=== PATIENT | female | born 1955 | race African-American/Black ===

== ENCOUNTER 2020-08-12 03:35 | Inpatient (IN) | payer MEDICARE, SELFPAY ==
[2020-08-12] VITALS (11 sets, daily range): BP systolic 136–146; BP diastolic 63–83; PULSE 84–103; RESP 20–28; TEMP 36.9–38.6; O2SAT 80–95; BMI 47.6
--- NOTE | ~2020-08-12 | XR_ITS ---
EXAMINATION: XR chest ET placement INDICATION: Endotracheal tube placement TECHNIQUE: Portable AP chest at 0653 hours COMPARISON: 08/19/2020 FINDINGS: A moderate size right pneumothorax has developed. The endotracheal tube ends approximately 4.1 cm above the jesus. The nasogastric tube is followed as far as the stomach. Its tip is beyond th e inferior margin of the radiograph. Diffuse interstitial and airspace opacities persist throughout t he lungs. Slight worsening on the right is likely due to superimposed atelectasis due to pneumothorax . The cardiomediastinal silhouette is stable. IMPRESSION: 1. Development of a moderate size right pneumothorax. Chest tube has been inserted at the time of int erpretation. 2. Stable diffuse lung disease, consistent with pneumonia and/or pulmonary edema and/or acute respira tory distress syndrome (ARDS). Reviewed, dictated and finalized at location A. ARCH MANUFACTURING OPERATOR IMPRESSION: 1. Development of a moderate size right pneumothorax. Chest tube has been inser sheridan at the time of interpretation. 2. Stable diffuse lung disease, consistent with pneumonia and/or pulmonary shelby a and/or acute respiratory distress syndrome (ARDS).
--- NOTE | ~2020-08-12 | CT_ITS ---
EXAMINATION: CTA chest PE protocol DATE: 08/12/2020 05:33 INDICATION: Shortness of breath TECHNIQUE: Computed tomography angiography (CTA) of the chest was performed with 100 mL Omnipaque-350 intravenous contrast timed to evaluate the pulmonary arteries. Coronal maximum intensity projection 3D-reconstructions were created by the technologist. The dose-length product (DLP) was 969.93 mGy-cm. Automated exposure control and iterative reconstruction technique were employed. COMPARISON: None. FINDINGS: There is moderate opacification of the pulmonary arteries. No definite pulmonary embolism i s identified. There are widespread groundglass opacities throughout all lobes. No pleural effusion or pneumothorax is identified. There is mild cardiomegaly. Mild mediastinal and bilateral hilar lymphad enopathy is noted. The liver is diffusely low in attenuation when compared with the spleen, consisten t with hepatic steatosis. The gallbladder is surgically absent. There appears to be a dropped cholecy stectomy clip posterior to the right kidney. There is mild thoracic spondylosis. IMPRESSION: 1. Widespread groundglass opacities throughout all lung zones concerning for COVID 19 pneumonia. Othe r processes such as influenza pneumonia and organizing pneumonia can cause a similar imaging pattern. 2. No pulmonary embolism identified. Reviewed, dictated and finalized at location A. AL RESOLUTION SPECIALIST IMPRESSION: 1. Widespread groundglass opacities throughout all lung zones concerning for CO VID 19 pneumonia. Other processes such as influenza pneumonia and organizing pn eumonia can cause a similar imaging pattern. 2. No pulmonary embolism identified.
--- NOTE | ~2020-08-12 | XR_ITS ---
EXAMINATION: XR chest 1V portable INDICATION: Right chest tube insertion TECHNIQUE: Portable AP chest at 0723 hours COMPARISON: 0653 hours FINDINGS: A right-sided chest tube has been inserted. The previously described right pneumothorax isidro ears to have resolved, the lung apex is excluded from examination. Diffuse interstitial and airspace opacities persist without interval change. There is stable cardiomegaly. No pneumothorax is identifie d. The nasogastric tube is in the stomach. The endotracheal tube ends 3.5 cm above the jesus. A righ t upper extremity PICC is followed to the midsuperior vena cava. IMPRESSION: 1. Right chest tube insertion with likely resolved right pneumothorax (right lung apex excluded from the examination). 2. Stable diffuse lung disease, consistent with pneumonia and/or pulmonary edema and/or acute respira tory distress syndrome (ARDS). Reviewed, dictated and finalized at location A. ER IMPRESSION: 1. Right chest tube insertion with likely resolved right pneumothorax (right philomena ng apex excluded from the examination). 2. Stable diffuse lung disease, consistent with pneumonia and/or pulmonary shelby a and/or acute respiratory distress syndrome (ARDS).
--- NOTE | ~2020-08-12 | XR_ITS ---
EXAMINATION: XR chest 1V portable DATE: 08/23/2020 05:37 INDICATION: COVID-19 pneumonia. TECHNIQUE: A single frontal view of the chest was obtained. COMPARISON: Chest single view 08/22/2020 FINDINGS: There are airspace opacities throughout the lungs bilaterally. No pleural effusion or pneum othorax. The heart size is normal. The endotracheal tube tip is 2.0 cm above the jesus. The nasogast aysha tube tip is beyond the inferior margin of the radiograph, but at least to the stomach. A right up per extremity peripherally inserted central venous catheter (PICC) is seen with tip in the superior v gaurav cava. The right-sided chest tube is unchanged. IMPRESSION: 1. Diffuse lung disease with slight worsening at the lung bases, consistent with pneumonia versus acu te respiratory distress syndrome (ARDS). Reviewed, dictated and finalized at location A. ON CLEANER IMPRESSION: 1. Diffuse lung disease with slight worsening at the lung bases, consistent wit h pneumonia versus acute respiratory distress syndrome (ARDS).
--- NOTE | ~2020-08-12 | XR_ITS ---
EXAMINATION: XR chest PICC line DATE: 08/14/2020 11:02 INDICATION: Central line placement. TECHNIQUE: A single frontal view of the chest was obtained. COMPARISON: Chest single view at 5:42 AM FINDINGS: There are airspace opacities throughout the lungs bilaterally. No pleural effusion or pneum othorax. Cardiomegaly is noted. A right upper extremity peripherally inserted central venous catheter (PICC) is seen with tip in the superior vena cava. IMPRESSION: 1. PICC tip in superior vena cava. 2. Stable severe diffuse lung disease, consistent with pneumonia versus pulmonary edema versus acute respiratory distress syndrome (ARDS). 3. Cardiomegaly. Reviewed, dictated and finalized at location A. ANCE AND CONTROL SYSTEM ENGINEER IMPRESSION: 1. PICC tip in superior vena cava. 2. Stable severe diffuse lung disease, consistent with pneumonia versus pulmona ry edema versus acute respiratory distress syndrome (ARDS). 3. Cardiomegaly.
--- NOTE | ~2020-08-12 | XR_ITS ---
EXAMINATION: XR chest 1V portable INDICATION: Assess position of right chest tube TECHNIQUE: Portable AP chest at 2345 hours COMPARISON: 0723 hours FINDINGS: The endotracheal tube ends approximately 2.5 cm above the jesus. The nasogastric tube is f ollowed as far as the stomach. Its tip is beyond the inferior margin of the radiograph. A right upper extremity PICC ends with its tip in the superior vena cava. A right-sided chest tube projects over t he right hemithorax and appears unchanged in position. The patient is rotated to the left. No pneumot horax is identified. There is no pleural effusion. Diffuse interstitial and airspace opacities persis t without interval change. Stable cardiomegaly is noted. IMPRESSION: 1. Right chest tube position unchanged. 2. Stable diffuse lung disease, consistent with pneumonia and/or pulmonary edema and/or acute respira tory distress syndrome (ARDS). Reviewed, dictated and finalized at location A. GENCY MANAGEMENT SPECIALIST IMPRESSION: 1. Right chest tube position unchanged. 2. Stable diffuse lung disease, consistent with pneumonia and/or pulmonary shelby a and/or acute respiratory distress syndrome (ARDS).
--- NOTE | ~2020-08-12 | XR_ITS ---
EXAMINATION: XR chest ET placement, XR abdomen NG/feed tube insert DATE: 08/16/2020 11:18 INDICATION: Endotracheal tube placement. Orogastric tube placement. TECHNIQUE: 1. frontal view of the chest was obtained. 2. Portable AP supine view of the abdomen was obtained. COMPARISON: Chest radiograph dated 08/16/2020 FINDINGS: Chest: Endotracheal tube tip 1.7 cm above the jesus. Right upper extremity peripherally inserted central ve nous catheter (PICC) tip at the cephalad superior vena cava. Lung volumes appear mildly decreased relative to the prior study although this may be due at least in part to more lordotic positioning. Persistent diffuse airspace opacities throughout both lungs relat ively sparing the apices. No pneumothorax or definitive pleural effusion. Cardiomegaly. KUB: Nasogastric tube tip in the stomach with proximal side-port in the body and distal tip near the gastr ic antrum. Cholecystectomy clips in the right upper quadrant. There are some gas scattered throughout nondilated loops of colon and small bowel. IMPRESSION: 1. Endotracheal tube and nasogastric tube in expected positions. 2. Persistent diffuse bilateral lung disease consistent pneumonia, pulmonary edema, ARDS or some comb ination thereof. 3. Cardiomegaly. Reviewed, dictated and finalized at location A. S LEADER IMPRESSION: 1. Endotracheal tube and nasogastric tube in expected positions. 2. Persistent diffuse bilateral lung disease consistent pneumonia, pulmonary ed jessica, ARDS or some combination thereof. 3. Cardiomegaly.
--- NOTE | ~2020-08-12 | XR_ITS ---
EXAMINATION: XR chest 1V portable EXAM DATE: 08/27/2020 06:15 INDICATION: COVID-19 pneumonia, acute respiratory failure. TECHNIQUE: Portable AP frontal chest x-ray was obtained. Comparison is made to prior examination from 08/26/2020. FINDINGS: Endotracheal tube tip is 3 centimeters above the jesus (ideal range is between 2 to 5 cm). There is a nasogastric tube seen with tip collimated off the study, but below the left hemidiaphrag m. There is a right-sided PICC line with tip poorly visualized but pointing in the correct direction. Extensive bilateral acute airspace disease, could be infection and edema. There are no sizable pleur al effusions. There is no pneumothorax suspected. The cardiomediastinal silhouette is prominent b ut magnified on this AP technique. The bones and soft tissues are unremarkable. There is no significant interval change compared to prior exam. IMPRESSION: 1. Line(s) and tube(s) in position. 2. Stable airspace disease and other findings as above. Reviewed, dictated and finalized at location A. ON BREEDER
--- NOTE | ~2020-08-12 | XR_ITS ---
EXAMINATION: XR chest 1V portable DATE: 08/24/2020 01:31 INDICATION: Acute respiratory failure. COVID-19 pneumonia. TECHNIQUE: A single frontal view of the chest was obtained. COMPARISON: Chest single view 08/23/2020 FINDINGS: There are airspace opacities throughout the lungs bilaterally. No pleural effusion or pneum othorax. The heart size is normal. The endotracheal tube tip is 2.7 cm above the jesus. A right uppe r extremity peripherally inserted central venous catheter (PICC) is seen with tip in the superior noah a cava. A right-sided chest tube is unchanged. The nasogastric tube tip is beyond the inferior margin of the radiograph, but at least to the stomach. IMPRESSION: 1. Worsened severe diffuse lung disease, consistent with pneumonia versus acute respiratory distress syndrome (ARDS). Reviewed, dictated and finalized at location A. RANCE UNDERWRITING ASSISTANT
--- NOTE | ~2020-08-12 | XR_ITS ---
EXAMINATION: XR chest 1V portable DATE: 08/25/2020 06:08 INDICATION: COVID-19 pneumonia. Acute respiratory failure. TECHNIQUE: A single frontal view of the chest was obtained. COMPARISON: Chest single view 08/24/2020 FINDINGS: There are airspace opacities throughout the lungs bilaterally. No pleural effusion or pneum othorax. The heart size is normal. The endotracheal tube tip is 2.3 cm above the jesus. The nasogast aysha tube tip is beyond the inferior margin of the radiograph, but at least to the stomach. A right up per extremity peripherally inserted central venous catheter (PICC) is seen with tip in the superior v gaurav cava. A right-sided chest tube is unchanged. IMPRESSION: 1. Stable severe diffuse lung disease, consistent with pneumonia versus acute respiratory distress sy ndrome (ARDS). Reviewed, dictated and finalized at location A. TRANSFUSIONIST IMPRESSION: 1. Stable severe diffuse lung disease, consistent with pneumonia versus acute r espiratory distress syndrome (ARDS).
--- NOTE | ~2020-08-12 | XR_ITS ---
EXAMINATION: XR chest 1V portable DATE: 08/14/2020 06:23 INDICATION: Respiratory failure. COVID-19 pneumonia. TECHNIQUE: A single frontal view of the chest was obtained. COMPARISON: Chest CT 08/12/2020 FINDINGS: There are airspace opacities in all lung zones bilaterally. No pleural effusion or pneumoth orax. Cardiomegaly is noted. IMPRESSION: 1. Diffuse lung disease, consistent with pneumonia versus pulmonary edema versus acute respiratory di stress syndrome (ARDS). Reviewed, dictated and finalized at location A. OGRAPHIC MACHINE OPERATOR IMPRESSION: 1. Diffuse lung disease, consistent with pneumonia versus pulmonary edema versu s acute respiratory distress syndrome (ARDS).
--- NOTE | ~2020-08-12 | XR_ITS ---
EXAMINATION: XR chest 1V portable EXAM DATE: 08/18/2020 06:10 INDICATION: Respiratory failure. TECHNIQUE: Portable AP frontal chest x-ray was obtained. Comparison is made to prior examination from 08/17, 08/16. FINDINGS: Endotracheal tube tip is about 2 centimeters above the jesus (ideal range is between 2 to 5 cm). There is a right-sided PICC line with tip projecting over the SVC. There is a nasogastric tu be seen with tip collimated off the study, but below the left hemidiaphragm. Large amount of bilateral acute airspace disease, could be infection and/or edema. There are no siza ble pleural effusions. There is no pneumothorax suspected. Cardiomediastinal silhouette is normal . The bones and soft tissues are unremarkable. Compared to prior study, airspace disease appears unchanged. IMPRESSION: 1. Tubes, line in position. 2. Extensive bilateral acute airspace disease. Reviewed, dictated and finalized at location A. HES PRESSER
--- NOTE | ~2020-08-12 | XR_ITS ---
EXAMINATION: XR chest 1V portable DATE: 08/26/2020 06:14 INDICATION: COVID-19 pneumonia. Acute respiratory failure. TECHNIQUE: A single frontal view of the chest was obtained. COMPARISON: Chest single view 08/25/2020 FINDINGS: There are airspace opacities throughout the lungs bilaterally. No pleural effusion or pneum othorax. The heart size is normal. The endotracheal tube tip is 2.8 cm above the jesus. The nasogast aysha tube tip is beyond the inferior margin of the radiograph, but at least to the stomach. A right-si ded chest tube is noted. A right upper extremity peripherally inserted central venous catheter (PICC) is seen with tip in the superior vena cava. IMPRESSION: 1. Stable diffuse lung disease, consistent with pneumonia versus acute respiratory distress syndrome (ARDS). Reviewed, dictated and finalized at location A. E ADMINISTRATOR IMPRESSION: 1. Stable diffuse lung disease, consistent with pneumonia versus acute respirat ory distress syndrome (ARDS).
--- NOTE | ~2020-08-12 | XR_ITS ---
EXAMINATION: XR chest 1V portable EXAM DATE: 08/15/2020 06:20 INDICATION: Respiratory failure. TECHNIQUE: Portable AP frontal chest x-ray was obtained. Comparison is made to prior examination from 08/14/2020. FINDINGS: There is a right-sided PICC line with tip projecting over the SVC. Moderate to large amount of bilateral acute airspace disease, could be infection and/or edema. There are no sizable pleural effusions. There is no pneumothorax suspected. Cardiomediastinal silhouet te is normal. The bones and soft tissues are unremarkable. Compared to prior study, airspace disease either stable or with slight interval improvement. IMPRESSION: 1. Stable or slightly improved diffuse acute airspace disease, clinical correlation. Reviewed, dictated and finalized at location A. LER IMPRESSION: 1. Stable or slightly improved diffuse acute airspace disease, clinical correl ation.
--- NOTE | ~2020-08-12 | XR_ITS ---
EXAMINATION: XR chest 1V portable EXAM DATE: 08/19/2020 06:36 INDICATION: ETT placement . Respiratory failure. TECHNIQUE: Portable AP frontal chest x-ray was obtained. Comparison is made to prior examination from 08/18, 08/17 and 08/16. FINDINGS: Endotracheal tube tip is 2-3 centimeters above the jesus (ideal range is between 2 to 5 cm ). There is a right-sided PICC line with tip projecting over the SVC. Feeding tube tip poorly visua lized but below the level of the diaphragm. Large amount of bilateral acute airspace disease, could be infection and/or edema. There are no siza ble pleural effusions. There is no pneumothorax suspected. Cardiomediastinal silhouette is normal . The bones and soft tissues are unremarkable. Compared to prior study, airspace disease appears unchanged. IMPRESSION: 1. Tubes, line in position. 2. Extensive bilateral acute airspace disease. Reviewed, dictated and finalized at location A. R CASTING MACHINE SETUP OPERATOR
--- NOTE | ~2020-08-12 | XR_ITS ---
EXAMINATION: XR chest 1V portable EXAM DATE: 08/17/2020 06:25 INDICATION: Respiratory failure. TECHNIQUE: Portable AP frontal chest x-ray was obtained. Comparison is made to prior examination from 08/15/2020, 08/14/2020. FINDINGS: Endotracheal tube tip is 2 centimeters above the jesus (ideal range is between 2 to 5 cm). There is a right-sided PICC line with tip projecting over the SVC. There is a nasogastric tube s een with tip collimated off the study, but below the left hemidiaphragm. Large amount of bilateral acute airspace disease, could be infection and/or edema. There are no siza ble pleural effusions. There is no pneumothorax suspected. Cardiomediastinal silhouette is normal . The bones and soft tissues are unremarkable. Compared to prior study, airspace disease appears unchanged. IMPRESSION: 1. Tubes, line in position. 2. Extensive bilateral acute airspace disease. Reviewed, dictated and finalized at location A. R TECHNICIAN
--- NOTE | ~2020-08-12 | XR_ITS ---
EXAMINATION: XR chest 1V portable EXAM DATE: 08/25/2020 15:13 INDICATION: Respiratory failure. COVID 19. TECHNIQUE: Portable AP frontal chest x-ray was obtained. Comparison is made to prior examination from earlier same date. FINDINGS: There is a right-sided PICC line in position. Endotracheal tube tip is 3 centimeters above the jesus (ideal range is between 2 to 5 cm). Feeding tube poorly visualized but likely tip below the diaphragm. Severe diffuse acute airspace disease again noted. Possible small pleural effusions. There is no pn eumothorax suspected. The cardiomediastinal silhouette is prominent but magnified on this AP techni que. The bones and soft tissues are unremarkable. There is no significant interval change compared to prior exam. IMPRESSION: 1. Line(s) and tube(s) in position. 2. Extensive acute airspace disease unchanged. Reviewed, dictated and finalized at location A. WARE ENGINEER MOBILE
--- NOTE | ~2020-08-12 | XR_ITS ---
EXAMINATION: XR chest 1V portable DATE: 08/22/2020 05:47 INDICATION: Right pneumothorax. COVID-19 pneumonia. TECHNIQUE: A single frontal view of the chest was obtained. COMPARISON: Chest single view 08/20/2020, chest CT 08/12/2020 FINDINGS: There are interstitial opacities in all lung zones bilaterally. There is a small right pleu ral effusion. No pneumothorax. A right-sided chest tube is unchanged. The heart size is normal. The e ndotracheal tube tip is 3.6 cm above the jesus. The nasogastric tube tip is beyond the inferior ray in of the radiograph, but at least to the stomach. A right upper extremity peripherally inserted cent ral venous catheter (PICC) is seen with tip in the superior vena cava. IMPRESSION: 1. Diffuse lung disease with slight improvement from 08/20/2020, consistent with pneumonia versus acu te respiratory distress syndrome (ARDS). 2. Small right pleural effusion. Reviewed, dictated and finalized at location A. RATORY SUPERVISOR IMPRESSION: 1. Diffuse lung disease with slight improvement from 08/20/2020, consistent wit h pneumonia versus acute respiratory distress syndrome (ARDS). 2. Small right pleural effusion.
--- NOTE | ~2020-08-12 | XR_ITS ---
EXAMINATION: XR chest 1V portable EXAM DATE: 08/16/2020 06:21 INDICATION: Respiratory failure. TECHNIQUE: Portable AP frontal chest x-ray was obtained. Comparison is made to prior examination from 08/15/2020, 08/14/2020. FINDINGS: There is a right-sided PICC line with tip projecting over the SVC. Moderate to large amount of bilateral acute airspace disease, could be infection and/or edema. There are no sizable pleural effusions. There is no pneumothorax suspected. Cardiomediastinal silhouet te is normal. The bones and soft tissues are unremarkable. Compared to prior study, airspace disease appears unchanged. IMPRESSION: 1. Stable diffuse acute airspace disease, clinical correlation. Reviewed, dictated and finalized at location A. RACK OPERATOR
--- NOTE | 2020-08-12 03:49 | ECG_ITS ---
Measurements Intervals [place] Rate: 112 P: 8 DC: 147 QRS: 32 QRSD: 102 T: -12 QT: 329 QTc: 449 Interpretive Statements SINUS TACHYCARDIA POSSIBLE LEFT ATRIAL ENLARGEMENT BORDERLINE ST-T WAVE ABNORMALITY- ANTEROLAT/INF LEADS BASELINE WANDER- I, II, AVR, AVL, AVF, V1-V6 ABNORMAL ECG Electronically Signed On 08-12-2020 8:05:30 HOSPITAL CHIEF FINANCIAL OFFICER by Kory Campa D.O.
--- NOTE | 2020-08-12 04:03 | ED.WEAKNESS ---
HPI - Weakness General Chief complaint: Weakness Stated complaint: covid +, dizzy, weak Time Seen by Provider: 08/12/20 03:56 Source: patient Mode of arrival: ambulatory Limitations: no limitations History of Present Illness HPI Narrative: Patient is a 65-year-old female complaining of fatigue, malaise, weakness, body aches, shortness of breath and fever x1 week. Patient states that it is worse tonight. Patient was discharged from [facility] after being admitted with Covid pneumonia this past week. Patient's oxygen sat upon arrival was 80% on room air. Patient does not use oxygen at home. Related Data Home Medications Medication Instructions Recorded Confirmed albuterol sulfate INHALATION 08/12/20 08/12/20 levofloxacin 08/12/20 metformin mg PO 08/12/20 metformin mg PO 08/12/20 nifedipine PO 08/12/20 Review of Systems Review of Systems: All systems reviewed & are unremarkable except as noted in HPI and below Constitutional: Constitutional: Denies body ache(s), Denies chills, Denies excessive sweating, Denies fever(s), Denies headache(s) and Denies weight loss Eyes: Eyes: Denies blurry vision, Denies change in vision and Denies loss of vision ENT: Denies dizziness, Denies ear discharge, Denies headache(s), Denies lip swelling, Denies epistaxis, Denies nasal congestion, Denies neck pain, Denies throat swelling and Denies tongue swelling Cardiovascular: Cardiovascular: Denies chest pain, Denies chest pain at rest, Denies chest pain with activity, Denies diaphoresis, Denies rapid heart rate, Denies edema, Denies irregular heart rhythm, Denies lightheadedness and Denies palpitations Respiratory: Respiratory: Denies chest congestion and Denies hemoptysis Gastrointestinal: Gastrointestinal: Denies abdominal pain, Denies melena, Denies hematochezia, Denies diarrhea, Denies nausea, Denies vomiting and Denies hematemesis Musculoskeletal: Musculoskeletal: Denies abnormal gait, Denies deformity, Denies joint swelling, Denies limited range of motion, Denies neck pain and Denies numbness Neurologic: Denies Abnormal speech present, Denies abnormal gait, Denies confusion, Denies dizziness, Denies headache(s), Denies focal weakness, Denies loss of vision, Denies numbness, Denies Other visual disturbances and Denies Sensory deficit (Neuro) Psychiatric: Psychiatric: Denies confusion, Denies depression, Denies auditory hallucinations, Denies homicidal ideation and Denies suicidal ideation Endocrine: Endocrine: Denies cold intolerance, Denies excessive sweating, Denies fatigue, Denies heat intolerance and Denies palpitations Hematologic/Lymphatic: Hematologic/Lymphatic: Denies easy bleeding and Denies easy bruising Allergic/Immunologic: Allergic/Immunologic: Denies lip swelling, Denies throat swelling and Denies tongue swelling Course Course Emergency Course: Patient on reexamination denies any chest pain or shortness of breath. Discussed with the hospitalist and accepted the admit. Vital Signs Vital signs: Vital Signs Temperature 38.6 C H 08/12/20 03:39 Pulse Rate 101 H 08/12/20 03:39 Respiratory Rate 20 08/12/20 03:39 Blood Pressure 139/75 08/12/20 03:39 Pulse Oximetry 80 L 08/12/20 03:39 Temperature 38.6 C H 08/12/20 03:39 Pulse Rate 103 H 08/12/20 05:41 Respiratory Rate 24 H 08/12/20 05:41 Blood Pressure 145/79 H 08/12/20 05:41 Pulse Oximetry 93 08/12/20 05:41 MDM - Weakness MDM Narrative Medical decision making narrative: Reviewed her labs and CTA findings. Patient does have bilateral Covid pneumonia. Her O2 sat on room air in the low 80s. Due to this she will be admitted for further evaluation and treatment particularly oxygen therapy. Differential Diagnosis Differential diagnosis: Likely anemia, sepsis, dehydration and other (Pneumonia, viral syndrome, Covid infection) Lab Data Attestation: I reviewed the patient's lab results. Result diagrams: 08/12/20 04:13 08/12/20 0
[2020-08-12 04:38] LABS: Basophils Percent Auto 0.2 % (0.2-1.2); Immature Granulocyte Absolute 0.03 K/mm3 (0.00-0.031); Immature Granulocyte Percent A 0.5 % (0-0.5); Lymphocytes Absolute Auto 1.63 K/mm3 (0.9-3.2); Lymphocytes Percent Auto 28.3 % (18.3-44.2); Mean Corpuscular HGB Conc 33.3 g/dl (32-36); Mean Corpuscular Hemoglobin 29.3 pg (26-34); Mean Corpuscular Volume 87.8 fl (80-100); Mean Platelet Volume 9.1 fl (7.4-10.4); Monocytes Absolute Auto 0.3 K/mm3 (0.1-0.6); Monocytes Percent Auto 4.9 % (2.6-8.5); Neutrophils Absolute Auto 3.8 K/mm3 (1.3-6.7); Neutrophils Percent Auto 66.1 % (45.5-73.1); Platelet Count Result 158 k/mm3 (150-375); Red Blood Count 4.44 M/mm3 (4.2-5.4); Red Cell Distribution Width 12.5 % (11.5-14.5); White Blood Count 5.8 K/mm3 (4.5-10.0)
[2020-08-12 04:48] LABS: Alveolar/Arterial O2 Gradient 141.3 mmHg; Base Excess ABG -0.1 mEq/l (+/-2.0); Carboxyhemoglobin 0.8 % THb (0-2.0); Fractional Inspired Oxygen 34 %; HCO3 ABG 23.8 mEq/l (22.0-26.0); Methemoglobin ABG 0.3 %THb (0-1.5); Oxygen Content ABG 17.3 %vol (16.0-22.0); Oxygen Saturation ABG 91.5 % (95.0-100.0); Oxyhemoglobin 89.8 % THb (90.0-100.0); PCO2 ABG 36.3 mmHg (35.0-45.0); PO2 ABG 58.8 mmHg (80.0-100.0); PO2 FiO2 Ratio Arterial Blood 1.73 %; Reduced Hemoglobin 9.1 %THb (0-5.0); Total Hemoglobin 13.7 g/dL (12.0-18.0); pH ABG 7.434 (7.350-7.450)
[2020-08-12 04:49] LABS: Lactic Acid Reflex 1.6 mmol/L (0.7-2.1)
[2020-08-12 04:49] LABS: Device NASAL CANNULA; Liters per Minute 3.5 LPM; Modified Allen's Test Pass; Site Drawn RIGHT RADIAL
[2020-08-12 04:52] LABS: Alanine Aminotransferase 66 U/L (4-35); Alkaline Phosphatase 78 U/L (38-126); Anion Gap 11 mmol/L (8-16); Aspartate Amino Transferase 79 U/L (14-36); Bilirubin,Total 0.9 mg/dL (0.2-1.3); Blood Urea Nitrogen 15 mg/dL (7-17); Calcium 8.7 mg/dL (8.4-10.2); Carbon Dioxide 28 mmol/L (22-30); Chloride 98 mmol/L (98-107); Estimated CRCL calculation 70 ml/min; Estimated Glomerular Filt Rate > 60; Glucose 168 mg/dL (65-105); Potassium 3.5 mmol/L (3.4-5.0); Sodium 137 mmol/L (137-145)
[2020-08-12 04:55] LABS: Prothrombin Time 13.5 Seconds (11.1-14.7)
[2020-08-12 04:56] LABS: Partial Thromboplastin Time 31.1 SECONDS (22.3-36.8)
[2020-08-12 04:58] LABS: D Dimer 0.51 ug/mL (<0.48)
[2020-08-12] MEDS: ACETAMINOPHEN 325 MG TABLET 650 MG PO ×2 (05:01→20:50)
[2020-08-12 05:04] LABS: NT Pro B Type Natriuretic Pept 14 PG/ML (5-100); Troponin I < 0.012 ng/mL (0.000-0.034)
[2020-08-12] MEDS: DEXAMETHASONE SOD PHOS INJ 4 MG/ML VIAL 10 MG IV PUSH (06:26)
[2020-08-12] MEDS: LACTATED RINGERS 1,000 ML 100 ML IV CONT (06:26)
--- NOTE | 2020-08-12 06:50 | PC.NURSE ---
This patient, Lilli Hernandez, was admitted to [facility] Surg Room 330-01. Patient/family oriented to hospital policies and general routines including ID bracelet, bed and alarms, visiting hours, pain management, procedures, bathroom and other care routines, personal items, smoking policy, room service/diet, and visiting hours. Information on how to activate the Rapid Response Team has been discussed. Patient/Family are encouraged to report perceived risks to care and to ask questions if they do not understand what they are told or what they should do.
[2020-08-12] MEDS: REMDESIVIR 200 MG/NS 250 ML 200 MG/250 ML BAG 250 MG IVPB (11:38)
[2020-08-12] MEDS: NIFEdipine 30 MG TAB.ER.24 PO (11:39)
[2020-08-12 12:01] LABS: Hemoglobin A1C 7.3 % (<5.7)
[2020-08-12 12:22] LABS: Glucose Point of Care 254 (65-105)
[2020-08-12] MEDS: ENOXAPARIN 40 MG/0.4 ML SYRINGE SUB-Q (12:49)
[2020-08-12] MEDS: INSULIN ASPART (*BKC) 100 UNITS/ML SUB-Q (12:49)
--- NOTE | 2020-08-12 15:34 | PM.IMHP ---
H&P: HPI History of Present Illness Date/Time: 08/12/20 15:34 Chief complaint: COVID PNEUMONIA Narrative: Lilli Hernandez is a 65 year old female with history of recently diagnosed HTN and Diabetes who was just discharged from [facility] where she was admitted with COVID 19 PNA. She states that she started having fever , fatigue and mild SOB a week ago then some close family members were diagnosed with COVID, she went to [place] and was hospitalized for a few days, apparently she received treatment with a full course of dexamethasone and prior to discharge she had a 6 minute walk test which came back normal. At home she started feeling tired and SOB again and kept having fever and decided to come to the hospital where she was found to be hypoxic. By the time I saw her she was doing better, she denies chest pain, refers anosmia and dysgeusia , no diarrhea , nausea or vomiting, no abdominal pain. Review of Systems Review of Systems: All systems reviewed & are unremarkable except as noted in HPI and below PMFSH Past Medical History Medical History (Updated 08/12/20 @ 15:42 by Daniel Oliver MD) Diabetes Hypertension Family History Family History Father Cancer Social History Social History Smoking status: Former smoker Tobacco type: cigarettes Alcohol intake: never Substance use: never Gender identity (if verbalized by the patient): Female Spiritual care concerns: No Meds Home Medications and Allergies Home Medications Medication Instructions Recorded Confirmed Type albuterol sulfate 2 puff INHALATION Q4H 08/12/20 08/12/20 History levofloxacin 750 mg PO DAILY 08/12/20 08/12/20 History metformin 500 mg PO DAILY 08/12/20 08/12/20 History nifedipine 30 mg PO DAILY 08/12/20 08/12/20 History Allergies Allergy/AdvReac Type Severity Reaction Status Date / Time sulfamethoxazole Allergy Hives Verified 08/12/20 07:14 [From Bactrim] trimethoprim [From Bactrim] Allergy Hives Verified 08/12/20 07:14 Vital Signs Vital Signs - 24 hr 08/12/20 03:39 08/12/20 05:41 08/12/20 06:28 Temperature 101.5 F H Pulse Rate 101 H 103 H 93 Respiratory Rate 20 24 H 28 H Blood Pressure 139/75 145/79 H 144/83 H Pulse Oximetry 80 L 93 95 08/12/20 06:37 08/12/20 07:00 08/12/20 08:00 Temperature 100.3 F H 99.4 F 99.2 F Pulse Rate 95 87 Respiratory Rate 20 20 Blood Pressure 144/82 H 136/63 Pulse Oximetry 95 92 08/12/20 11:44 08/12/20 12:00 Temperature 98.7 F Pulse Rate 84 98 Respiratory Rate 22 H Blood Pressure 142/69 H Pulse Oximetry 92 89 L Exam Const: General: cooperative, comfortable, awake and Physically active Nutritional Appearance: obese Eyes: Pupils: Equal, round and reactive pupils present Neck: Neck: supple and no JVD Resp: Effort & Inspection: normal respiratory effort and able to speak in complete sentences Auscultation: rhonchi and diminished lung sounds Other: No use of accessory muscles Cardio: Jugular venous distension: no JVD Rate: regular rate Rhythm: regular rhythm Heart sounds: S1 normal heart sound present and S2 normal heart sound present Peripheral pulses: Peripheral pulses 2+ throughout GI: Inspection: obesity GI Palp: Yes Soft to palpation Percussion: Yes normal to percussion Auscultation: normal bowel sounds Skin: General skin exam: normal color and no rashes or lesions noted Neuro: General: patient oriented x3, moves all extremities and no focal motor deficits Extrem: General: no clubbing, cyanosis or edema H&P: Results Labs Labs: Short CBC 08/12/20 Range/Units 04:13 WBC 5.8 (4.5-10.0) K/mm3 Hgb 13.0 (12.0-15.0) g/dL Hct 39.0 (37.0-47.0) % Plt Count 158 (150-375) k/mm3 BMP 08/12/20 04:13 Sodium 137 Potassium 3.5 Chloride 98 Carbon Dioxide 28 BUN 15 Creatinine 0.90 Glu
[2020-08-12 17:43] LABS: Glucose Point of Care 152 (65-105)
[2020-08-12] MEDS: ALBUTEROL SULFATE (*SP) INHALER 2 PUFF INHALATION (20:03)
[2020-08-12 21:09] LABS: Glucose Point of Care 151 (65-105)
[2020-08-13] VITALS (20 sets, daily range): BP systolic 130–166; BP diastolic 62–91; PULSE 71–111; RESP 18–32; TEMP 36.6–38.2; O2SAT 86–100
[2020-08-13] MEDS: ALBUTEROL SULFATE (*SP) INHALER 2 PUFF INHALATION ×4 (00:10→20:50)
--- NOTE | 2020-08-13 05:15 | PC.NURSE ---
This patient, Lilli Hernandez, was transferred to [ ICU] on 08/13/20 at 0500. Personal belongings sent with patient. Report given to [ ]. Appropriate documentation sent with patient.
--- NOTE | 2020-08-13 05:54 | PC.NURSE ---
05:20 Lilli Hernandez arrived to ICU6 with avelina RN & tech at bedside at approximately 0515. Pt is AOx4, no c/o pain & O2 saturations on 15L HFNC in the 90s. Pt informed of ICU policies and given call light. Pt is currently resting comfortably, will continue to monitor. 0545 Pt O2 saturations dropped into the 80s sustained, RT contacted, pt placed on NRB for time being, will continue to reassess to wean pt off as tolerated.
[2020-08-13 08:00] LABS: Alanine Aminotransferase 54 U/L (4-35); Albumin Level 3.5 g/dL (3.5-5.1); Alkaline Phosphatase 74 U/L (38-126); Anion Gap 9 mmol/L (8-16); Aspartate Amino Transferase 65 U/L (14-36); Bilirubin,Total 0.8 mg/dL (0.2-1.3); Blood Urea Nitrogen 16 mg/dL (7-17); Calcium 8.6 mg/dL (8.4-10.2); Carbon Dioxide 30 mmol/L (22-30); Chloride 98 mmol/L (98-107); Estimated CRCL calculation 79 ml/min; Estimated Glomerular Filt Rate > 60; Glucose 159 mg/dL (65-105); Potassium 3.4 mmol/L (3.4-5.0); Sodium 137 mmol/L (137-145)
[2020-08-13 08:10] LABS: Basophils Percent Auto 0.1 % (0.2-1.2); Eosinophils Percent Auto 0.1 % (0-4.4); Hematocrit 37.4 % (37.0-47.0); Hemoglobin 12.5 g/dL (12.0-15.0); Immature Granulocyte Absolute 0.06 K/mm3 (0.00-0.031); Immature Granulocyte Percent A 0.9 % (0-0.5); Lymphocytes Absolute Auto 2.23 K/mm3 (0.9-3.2); Lymphocytes Percent Auto 31.9 % (18.3-44.2); Mean Corpuscular HGB Conc 33.4 g/dl (32-36); Mean Corpuscular Hemoglobin 29.3 pg (26-34); Mean Corpuscular Volume 87.8 fl (80-100); Mean Platelet Volume 9.6 fl (7.4-10.4); Monocytes Absolute Auto 0.3 K/mm3 (0.1-0.6); Monocytes Percent Auto 4.9 % (2.6-8.5); Neutrophils Absolute Auto 4.3 K/mm3 (1.3-6.7); Neutrophils Percent Auto 62.1 % (45.5-73.1); Platelet Count Result 180 k/mm3 (150-375); Red Blood Count 4.26 M/mm3 (4.2-5.4); Red Cell Distribution Width 12.5 % (11.5-14.5)
[2020-08-13] MEDS: NIFEdipine 30 MG TAB.ER.24 PO (08:49)
[2020-08-13] MEDS: ENOXAPARIN 40 MG/0.4 ML SYRINGE SUB-Q (08:49)
[2020-08-13 09:12] LABS: Atypical Lymphocytes Present; Platelet Estimate Adequate (Adequate)
--- NOTE | 2020-08-13 11:06 | WPDCNINT ---
Assessment and Plan Assessment and plan (1) Acute respiratory failure with hypoxia: Code(s): J96.01 - Acute respiratory failure with hypoxia Status: Acute Assessment and Plan: Acute Respiratory failure secondary to COVID-19 pneumonia CTA Chest IMPRESSION: 1. Widespread groundglass opacities throughout all lung zones concerning for COVID 19 pneumonia. Other processes such as influenza pneumonia and organizing pneumonia can cause a similar imaging pattern. 2. No pulmonary embolism identified currently on 15 L nasal cannula and non-rebreather mask. Continue supplemental oxygen to maintain saturation and prevent hypoxia. May need airvo if hypoxia worsens or even intubation. Continue ICU monitor ABG and PCXR reviewed and will repeat in am. continue Remdesivir, dexamethasone Discussed benefits and risks of convalscent plasma therapy for COVID-19. I explained patient the risks of donor plasma which includes allergic reaction, transfusion reaction, possible transmission of infections like Hepatitis and HIV and even . Explained that donor plasma has shown benefit in some studies but is not a proven therapy. Patient understands the risks, is agreeable to proceed and gave his informed consent. I will order for 1 unit of convalescent plasma Bronchodilators incentive spirometer and up in chair to minimize atelectasis (2) Pneumonia due to 2019 novel coronavirus: Code(s): U07.1 - COVID-19; J12.89 - Other viral pneumonia Status: Acute Assessment and Plan: see above (3) Hypertension: Code(s): I10 - Essential (primary) hypertension Status: Acute Assessment and Plan: currently on nifedipine (4) Diabetes: Code(s): E11.9 - Type 2 diabetes mellitus without complications Status: Acute Assessment and Plan: sliding scale insulin Additional Plan DVT prophylaxis - Lovenox Stress ulcer prophylaxis - Pepcid Code Status - patient requests to be Full Code . She said to contact Jessica hernandez who is her adopted daughter for medical decision making if she is unable to make decisions for herself Total Critical Care Time -40 minutes Due to a high probability of clinically significant, life threatening deterioration, the patient required my highest level of preparedness to intervene emergently and I personally spent this critical care time directly and personally managing the patient. This critical care time included obtaining a history; examining the patient; pulse oximetry; ordering and review of studies; arranging urgent treatment with development of a management plan; evaluation of patient's response to treatment; frequent reassessment; and discussions with other providers. It was exclusive of separately billable procedures and treating other patients and teaching time. Please see Assessment and Plan section and the rest of the note for further information on patient assessment and treatment Varnish Blender Consult Note Consult date: 08/13/20 Time Seen: 09:00 HPI: Lilli Hernandez is a 65 year old female 65 year old female with history of recently diagnosed HTN and Diabetes who was just discharged from [facility] where she was admitted with COVID 19 PNA. She states that she started having fever , fatigue and mild SOB a week ago then some close family members were diagnosed with COVID, she went to [place] and was tested positive for COVID-19 on 08/06. she she was discharged on08/09 and was not requiring oxygen at that time. she told me that she was not discharged on any steroid medication and she did not receive any blood or plasma transfusion while she was in the [facility]. post discharge she continued to feel sick tired and weak and says overt days her shortness of breath worsened which led her to presentation in [facility] yesterday. patient was found to be having COVID-19 pneumonia and was admitted on floor. overnight patient has hypoxia wors
[2020-08-13 12:37] LABS: Glucose Point of Care 166 (65-105)
[2020-08-13] MEDS: REMDESIVIR 100 MG/NS 250 ML 100 MG/250 ML BAG 250 MG IVPB (13:14)
[2020-08-13] MEDS: DEXAMETHASONE SOD PHOS INJ 4 MG/ML VIAL 6 MG IV PUSH (13:15)
[2020-08-13] MEDS: ACETAMINOPHEN 325 MG TABLET 650 MG PO (13:15)
--- NOTE | 2020-08-13 15:07 | PM.IMPN ---
Progress Note: A&P Assessment and Plan (1) Pneumonia due to 2019 novel coronavirus: Code(s): U07.1 - COVID-19; J12.89 - Other viral pneumonia Status: Acute Assessment and Plan: Moved to ICU for respiratory distress, ct showed diffuse ground glass opacities, no evidence of PE. Completed a full course of dexamethasone at [facility]. Started on bipap IV steroids and iV remdesivir (2) Hypoxia: Code(s): R09.02 - Hypoxemia Status: Acute Assessment and Plan: As above likely due to COVID 19 PNA. (3) Hypertension: Code(s): I10 - Essential (primary) hypertension Status: Acute Assessment and Plan: Diagnosed on her last hospitalization (4) Diabetes: Code(s): E11.9 - Type 2 diabetes mellitus without complications Status: Acute Assessment and Plan: recent diagnosis Hb A1c 7.3%. Subjective Date/time seen: 08/13/20 15:07 Interval history: David is a 65 year old female with history of recently diagnosed HTN and Diabetes who was just discharged from [facility] where she was admitted with COVID 19 PNA. Transfered to ICU due to respiratory distress and fever. Review of Systems Review of Systems: All systems reviewed & are unremarkable except as noted in HPI and below Exam Const: General: cooperative, comfortable, awake and Physically active Nutritional Appearance: obese Orientation/consciousness: patient oriented x3 Resp: Effort & Inspection: normal respiratory effort Neuro: General: patient oriented x3, moves all extremities and no focal motor deficits Cranial nerves: Yes Equal, round and reactive pupils present Objective Data Vital Signs Vital Signs: Vital Signs - 24 hr 08/12/20 16:00 08/12/20 20:00 08/12/20 20:30 Temperature 36.9 C 37.0 C Pulse Rate 88 93 Respiratory Rate 20 20 Blood Pressure 146/67 H 145/64 H Pulse Oximetry 91 92 92 08/13/20 00:00 08/13/20 02:30 08/13/20 03:07 Temperature 37.0 C 37.7 C H Pulse Rate 91 84 111 H Respiratory Rate 18 22 H Blood Pressure 130/62 154/83 H Pulse Oximetry 92 94 86 L 08/13/20 03:38 08/13/20 04:37 08/13/20 05:45 Temperature 38.1 C H Pulse Rate 108 H Respiratory Rate 29 H Blood Pressure 137/85 Pulse Oximetry 89 L 97 90 08/13/20 05:46 08/13/20 08:00 08/13/20 12:00 Temperature 36.6 C 38.2 C H Pulse Rate 93 94 Respiratory Rate 30 H 21 H Blood Pressure 149/81 H 155/79 H Pulse Oximetry 100 93 94 08/13/20 13:15 Temperature 37.9 C H Pulse Rate Respiratory Rate Blood Pressure Pulse Oximetry Intake/Output Intake/Output: Intake & Output 08/10/20 08/11/20 08/12/20 08/13/20 23:59 23:59 23:59 23:59 Intake Total 1989 Output Total 675 Balance 1315 Meds/Results Medications: Active Medications Generic Name Dose Route Start Last Admin Trade Name Freq PRN Reason Stop Dose Admin Acetaminophen 650 mg 08/12/20 20:32 08/13/20 13:15 Acetaminophen 325 Mg Tablet PO 650 mg Q4H PRN Administration Mild Pain (1-3) or Fever Albuterol 2 puff 08/12/20 12:00 08/13/20 12:08 Albuterol Sulfate (*Sp) Inhaler INHALATION 2 puff Q4HRT CAN Administration Dexamethasone Sodium Phosphate 6 mg 08/13/20 12:00 08/13/20 13:15 Dexamethasone Sod Phos Inj 4 Mg/Ml Vial IV PUSH 08/22/20 09:01 6 mg DAILY CAN Administration Dextrose 12.5 gm 08/12/20 10:49 Dextrose 50% 25 Gm/50 Ml Syringe IV PUSH PRN PRN Hypoglycemia Protocol Enoxaparin Sodium 40 mg 08/12/20 13:00 08/13/20 08:49 Enoxaparin 40 Mg/0.4 Ml Syringe SUB-Q 40 mg DAILY CAN Administration Glucagon 1 mg 08/12/20 10:49 Glucagon For Inj 1 Mg Vial IM PRN PRN Hypoglycemia Protocol Glucose 15 gm 08/12/20 10:49 Glucose Oral Gel 15 Gm Of Glucse In 37.5 Gm Tube PO PRN PRN Hypoglycemia Protocol Remdesivir 100 mg in 250 mls @ 250 mls/hr 08/13/20 12:00 08/13/20 13:14 IVPB
[2020-08-13 17:40] LABS: Glucose Point of Care 204 (65-105)
[2020-08-13] MEDS: INSULIN ASPART (*BKC) 100 UNITS/ML SUB-Q (18:00)
--- NOTE | 2020-08-13 18:57 | PCRCNOTE ---
pt unable to come off bipap for 1600 mdi
[2020-08-13 20:26] LABS: Glucose Point of Care 298 (65-105)
[2020-08-14] VITALS (25 sets, daily range): BP systolic 115–169; BP diastolic 57–98; PULSE 73–113; RESP 20–37; TEMP 37.1–38.2; O2SAT 90–99
--- NOTE | 2020-08-14 02:42 | PCRCNOTE ---
Window of time for administration has passed. See next scheduled administration.
[2020-08-14] MEDS: ALBUTEROL SULFATE (*SP) INHALER 2 PUFF INHALATION ×6 (04:04→22:59)
[2020-08-14] MEDS: ENOXAPARIN 40 MG/0.4 ML SYRINGE SUB-Q (08:24)
[2020-08-14] MEDS: NIFEdipine 30 MG TAB.ER.24 PO (08:24)
[2020-08-14] MEDS: DEXAMETHASONE SOD PHOS INJ 4 MG/ML VIAL 6 MG IV PUSH (08:25)
[2020-08-14] MEDS: ACETAMINOPHEN 325 MG TABLET 650 MG PO (08:26)
[2020-08-14 08:36] LABS: Basophils Percent Auto 0.3 % (0.2-1.2); Eosinophils Percent Auto 0.1 % (0-4.4); Hematocrit 38.8 % (37.0-47.0); Hemoglobin 12.8 g/dL (12.0-15.0); Immature Granulocyte Absolute 0.06 K/mm3 (0.00-0.031); Immature Granulocyte Percent A 0.8 % (0-0.5); Lymphocytes Absolute Auto 1.51 K/mm3 (0.9-3.2); Lymphocytes Percent Auto 21.3 % (18.3-44.2); Mean Corpuscular Hemoglobin 29.3 pg (26-34); Mean Corpuscular Volume 88.8 fl (80-100); Mean Platelet Volume 9.3 fl (7.4-10.4); Monocytes Absolute Auto 0.3 K/mm3 (0.1-0.6); Monocytes Percent Auto 4.8 % (2.6-8.5); Neutrophils Absolute Auto 5.2 K/mm3 (1.3-6.7); Neutrophils Percent Auto 72.7 % (45.5-73.1); Platelet Count Result 183 k/mm3 (150-375); Red Blood Count 4.37 M/mm3 (4.2-5.4); Red Cell Distribution Width 12.8 % (11.5-14.5); White Blood Count 7.1 K/mm3 (4.5-10.0)
[2020-08-14 08:48] LABS: Alanine Aminotransferase 46 U/L (4-35); Albumin Level 3.6 g/dL (3.5-5.1); Alkaline Phosphatase 84 U/L (38-126); Anion Gap 6 mmol/L (8-16); Aspartate Amino Transferase 56 U/L (14-36); Blood Urea Nitrogen 13 mg/dL (7-17); Calcium 8.6 mg/dL (8.4-10.2); Carbon Dioxide 33 mmol/L (22-30); Chloride 99 mmol/L (98-107); D Dimer 1.35 ug/mL (<0.48); Estimated CRCL calculation 103 ml/min; Estimated Glomerular Filt Rate > 60; Glucose 148 mg/dL (65-105); Lactate Dehydrogenase 1965 U/L (313-618); Magnesium 2.6 mg/dL (1.6-2.3); Potassium 3.7 mmol/L (3.4-5.0); Sodium 138 mmol/L (137-145)
[2020-08-14] MEDS: REMDESIVIR 100 MG/NS 250 ML 100 MG/250 ML BAG 250 MG IVPB (11:50)
[2020-08-14 11:52] LABS: Glucose Point of Care 179 (65-105)
--- NOTE | 2020-08-14 13:30 | WPDINTPN ---
Progress Note: A&P Assessment and Plan (1) Acute respiratory failure with hypoxia: Code(s): J96.01 - Acute respiratory failure with hypoxia Status: Acute Assessment and Plan: Acute Respiratory failure secondary to COVID-19 pneumonia CTA Chest on presentation IMPRESSION: 1. Widespread groundglass opacities throughout all lung zones concerning for COVID 19 pneumonia. Other processes such as influenza pneumonia and organizing pneumonia can cause a similar imaging pattern. 2. No pulmonary embolism identified patient continues to be hypoxic. she was on high-flow nasal cannula but was desaturating and was placed on BiPAP. Especially due to her body habitus positive-pressure seemsed to help her. Feels much better now and respiratory rate is in 20s. She actually told me that she prefers BiPAP over the high-flow nasal cannula he wants to continue wearing it. She is agreeable to intubation as a last resort which she may need Continue ICU monitor ABG and PCXR reviewed and will repeat in am. continue Remdesivir, dexamethasone 08/13 received 1 unit of convalescent plasma Bronchodilators Incentive spirometer and up in chair to minimize atelectasis when not on BiPAP (2) Pneumonia due to 2019 novel coronavirus: Code(s): U07.1 - COVID-19; J12.89 - Other viral pneumonia Status: Acute Assessment and Plan: see above (3) Hypertension: Code(s): I10 - Essential (primary) hypertension Status: Acute Assessment and Plan: Monitor and treat as needed (4) Diabetes: Code(s): E11.9 - Type 2 diabetes mellitus without complications Status: Acute Assessment and Plan: sliding scale insulin Additional Plan DVT prophylaxis - Lovenox Stress ulcer prophylaxis - Pepcid Code Status - patient requests to be Full Code . She said to contact Jessica chan who is her adopted daughter for medical decision making if she is unable to make decisions for herself Total Critical Care Time -40 minutes Due to a high probability of clinically significant, life threatening deterioration, the patient required my highest level of preparedness to intervene emergently and I personally spent this critical care time directly and personally managing the patient. This critical care time included obtaining a history; examining the patient; pulse oximetry; ordering and review of studies; arranging urgent treatment with development of a management plan; evaluation of patient's response to treatment; frequent reassessment; and discussions with other providers. It was exclusive of separately billable procedures and treating other patients and teaching time. Please see Assessment and Plan section and the rest of the note for further information on patient assessment and treatment Subjective Date/time seen: 08/14/20 She continues to feel short of breath and is very anxious. She was placed on BiPAP which seems to help help in see states he feels better. Denies any other major complaint. Still has some dry cough. Patient denies fever, chest pain, nausea, vomiting, abdominal pain, diarrhea, headache or constipation. Review of Systems Review of Systems: ROS unobtainable: Yes unobtainable due to medical condition Exam Narrative: Exam Narrative: General: Pt is alert awake and in NAD Lungs/Chest: Trachea central Clear BS B/L, bibasilar crackles, no wheezing. On Bipap. Cardiac: RRR. Normal S1 S2. No murmurs Circulation: Pedal pulses are intact and symmetrical. Abdomen: Normal bowel sounds. morbidly obese. Soft. NT. ND. Extremities: No clubbing, cyanosis or edema. Warm : Somers in place Neurologic: Follows commands. Moves all 4 extremities PERRL Skin: No Rash Objective Data Vital Signs Vital Signs: Vital Signs - 24 hr 08/13/20 14:20 08/13/20 16:00 08/13/20 17:24 Temperature 38.2 C H Pulse Rate 78 78 72 Respiratory Rate 22 H 26 H 20 Blood Pressure 166/85 H Pulse Oxim
--- NOTE | 2020-08-14 13:34 | PM.IMPN ---
Progress Note: A&P Assessment and Plan (1) Pneumonia due to 2019 novel coronavirus: Code(s): U07.1 - COVID-19; J12.89 - Other viral pneumonia Status: Acute Assessment and Plan: Ct showed diffuse ground glass opacities, no evidence of PE. Completed a full course of dexamethasone at [facility] however another course was started by classifying machine operator here. Since her symptoms onset is likely less than 10 days she is on Remdesivir, monitor liver enzymes. (2) Hypoxia: Code(s): R09.02 - Hypoxemia Status: Acute Assessment and Plan: As above likely due to COVID 19 PNA. (3) Hypertension: Code(s): I10 - Essential (primary) hypertension Status: Acute Assessment and Plan: Diagnosed on her last hospitalization. (4) Diabetes: Code(s): E11.9 - Type 2 diabetes mellitus without complications Status: Acute Assessment and Plan: Diagnosed on her last hospitalization too, Hb A1c 7.3%. On ISS . Subjective Date/time seen: On bipap, states she feels slightly better. 08/14/20 13:34 Exam Const: General: cooperative, comfortable and awake Nutritional Appearance: obese Orientation/consciousness: patient oriented x3 Eyes: Pupils: Equal, round and reactive pupils present Neck: Neck: supple and no JVD Resp: Effort & Inspection: normal respiratory effort and able to speak in complete sentences Auscultation: rhonchi and diminished lung sounds Other: No use of accessory muscles Cardio: Jugular venous distension: no JVD Rate: regular rate Rhythm: regular rhythm Heart sounds: S1 normal heart sound present and S2 normal heart sound present Peripheral pulses: Peripheral pulses 2+ throughout GI: Inspection: obesity Auscultation: normal bowel sounds Skin: General skin exam: normal color and no rashes or lesions noted Neuro: General: patient oriented x3, moves all extremities and no focal motor deficits Cranial nerves: Yes Equal, round and reactive pupils present Extrem: General: no clubbing, cyanosis or edema Objective Data Vital Signs Vital Signs: Vital Signs - 24 hr 08/13/20 14:20 08/13/20 16:00 08/13/20 17:24 Temperature 100.8 F H Pulse Rate 78 78 72 Respiratory Rate 22 H 26 H 20 Blood Pressure 166/85 H Pulse Oximetry 96 90 93 08/13/20 19:21 08/13/20 19:38 08/13/20 20:00 Temperature 99.2 F 98.7 F 98.7 F Pulse Rate 81 86 81 Respiratory Rate 30 H 28 H 26 H Blood Pressure 154/91 H 154/91 H 145/76 H Pulse Oximetry 99 90 97 08/13/20 20:15 08/13/20 20:51 08/13/20 21:48 Temperature 98.7 F Pulse Rate 83 72 71 Respiratory Rate 25 H 32 H 24 H Blood Pressure 145/76 H 144/78 H Pulse Oximetry 94 93 97 08/14/20 00:00 08/14/20 01:17 08/14/20 03:25 Temperature 98.8 F Pulse Rate 76 77 Respiratory Rate 33 H 28 H Blood Pressure 115/88 131/84 Pulse Oximetry 98 98 94 08/14/20 03:31 08/14/20 04:00 08/14/20 04:04 Temperature 98.7 F Pulse Rate 82 87 86 Respiratory Rate 34 H 34 H Blood Pressure 142/86 H Pulse Oximetry 92 92 08/14/20 05:44 08/14/20 08:00 08/14/20 08:26 Temperature 100.7 F H 100.7 F H Pulse Rate 94 91 Respiratory Rate 35 H 36 H Blood Pressure 145/86 H 156/76 H Pulse Oximetry 90 93 08/14/20 08:49 08/14/20 10:00 08/14/20 12:00 Temperature 99.1 F Pulse Rate 99 85 87 Respiratory Rate 33 H 27 H 28 H Blood Pressure 163/78 H 166/82 H Pulse Oximetry 94 96 98 08/14/20 12:25 08/14/20 12:28 Temperature Pulse Rate 88 88 Respiratory Rate 30 H 30 H Blood Pressure Pulse Oximetry 98 Intake/Output Intake/Output: Intake & Output 08/11/20 08/12/20 08/13/20 08/14/20 23:59 23:59 23:59 23:59 Intake Total 1864 982 240 Output Total 616 841 800 Balance 1352 984 -806 Meds/Results Medications: Active Medications Generic Name Dose Route Start Last Admin Trade Name Freq PRN Reason Stop Dose Admin Acetaminophen 650 mg 08/12/20 20:32 08/14/20 08:26 Acet
[2020-08-14] MEDS: CENTRAL LINE FLUSH 10 ML IV PUSH ×2 (17:16→21:11)
[2020-08-14 17:58] LABS: Glucose Point of Care 149 (65-105)
[2020-08-14 21:21] LABS: Glucose Point of Care 137 (65-105)
[2020-08-15] VITALS (26 sets, daily range): BP systolic 131–165; BP diastolic 71–105; PULSE 90–119; RESP 24–35; TEMP 36.7–38.1; O2SAT 90–99
[2020-08-15] MEDS: CENTRAL LINE FLUSH 10 ML IV PUSH ×3 (06:00→20:35)
[2020-08-15 06:19] LABS: Basophils Percent Auto 0.2 % (0.2-1.2); Eosinophils Percent Auto 0.2 % (0-4.4); Hematocrit 34.7 % (37.0-47.0); Hemoglobin 11.6 g/dL (12.0-15.0); Immature Granulocyte Absolute 0.16 K/mm3 (0.00-0.031); Immature Granulocyte Percent A 1.8 % (0-0.5); Lymphocytes Absolute Auto 1.67 K/mm3 (0.9-3.2); Lymphocytes Percent Auto 18.3 % (18.3-44.2); Mean Corpuscular HGB Conc 33.4 g/dl (32-36); Mean Corpuscular Volume 89.7 fl (80-100); Mean Platelet Volume 9.2 fl (7.4-10.4); Monocytes Absolute Auto 0.3 K/mm3 (0.1-0.6); Monocytes Percent Auto 3.1 % (2.6-8.5); Neutrophils Percent Auto 76.4 % (45.5-73.1); Platelet Count Result 186 k/mm3 (150-375); Red Blood Count 3.87 M/mm3 (4.2-5.4); Red Cell Distribution Width 12.8 % (11.5-14.5); White Blood Count 9.1 K/mm3 (4.5-10.0)
[2020-08-15 06:31] LABS: Alanine Aminotransferase 38 U/L (4-35); Albumin Level 3.3 g/dL (3.5-5.1); Alkaline Phosphatase 87 U/L (38-126); Anion Gap 6 mmol/L (8-16); Aspartate Amino Transferase 46 U/L (14-36); Bilirubin,Total 1.2 mg/dL (0.2-1.3); Blood Urea Nitrogen 13 mg/dL (7-17); Calcium 8.5 mg/dL (8.4-10.2); Carbon Dioxide 32 mmol/L (22-30); Chloride 98 mmol/L (98-107); Estimated CRCL calculation 106 ml/min; Estimated Glomerular Filt Rate > 60; Glucose 150 mg/dL (65-105); Magnesium 2.6 mg/dL (1.6-2.3); Potassium 3.6 mmol/L (3.4-5.0); Sodium 136 mmol/L (137-145)
[2020-08-15] MEDS: ALBUTEROL SULFATE (*SP) INHALER 2 PUFF INHALATION ×4 (07:58→20:49)
[2020-08-15 08:22] LABS: Atypical Lymphocytes Present; Platelet Estimate Adequate (Adequate)
[2020-08-15] MEDS: ENOXAPARIN 40 MG/0.4 ML SYRINGE SUB-Q (09:32)
[2020-08-15] MEDS: DEXAMETHASONE SOD PHOS INJ 4 MG/ML VIAL 6 MG IV PUSH (09:32)
[2020-08-15] MEDS: hydrALAZINE HCL 20 MG/ML VIAL 10 MG IV PUSH (09:36)
[2020-08-15 09:45] LABS: Glucose Point of Care 157 (65-105)
--- NOTE | 2020-08-15 12:23 | PM.IMPN ---
Progress Note: A&P Assessment and Plan (1) Pneumonia due to 2019 novel coronavirus: Code(s): U07.1 - COVID-19; J12.89 - Other viral pneumonia Status: Acute Assessment and Plan: She remains on Bi pap but looks more dyspneic this morning, management per cotton expert. Ct showed diffuse ground glass opacities, no evidence of PE. Completed a full course of dexamethasone at [facility], [place], operated by [facility] however another course was started by cotton expert here. Since her symptoms onset is likely less than 10 days she is on Remdesivir, monitor liver enzymes. (2) Hypoxia: Code(s): R09.02 - Hypoxemia Status: Acute Assessment and Plan: As above likely due to COVID 19 PNA. (3) Hypertension: Code(s): I10 - Essential (primary) hypertension Status: Acute Assessment and Plan: Uncontrolled, resume her nifedipine. (4) Diabetes: Code(s): E11.9 - Type 2 diabetes mellitus without complications Status: Acute Assessment and Plan: Diagnosed on her last hospitalization too, Hb A1c 7.3%. On ISS . Subjective Date/time seen: She seems SOB this morning, on bipap. 08/15/20 12:23 Exam Const: General: cooperative and awake Nutritional Appearance: obese Orientation/consciousness: patient oriented x3 Eyes: Pupils: Equal, round and reactive pupils present Neck: Neck: supple and no JVD Resp: Effort & Inspection: labored (Slightly ) Auscultation: rhonchi and diminished lung sounds Other: SOB, on Bi pap Cardio: Jugular venous distension: no JVD Rate: regular rate Rhythm: regular rhythm Heart sounds: S1 normal heart sound present and S2 normal heart sound present Peripheral pulses: Peripheral pulses 2+ throughout GI: Inspection: obesity Auscultation: normal bowel sounds Skin: General skin exam: normal color and no rashes or lesions noted Neuro: General: patient oriented x3, moves all extremities and no focal motor deficits Cranial nerves: Yes Equal, round and reactive pupils present Extrem: General: no clubbing, cyanosis or edema Objective Data Vital Signs Vital Signs: Vital Signs - 24 hr 08/14/20 12:25 08/14/20 12:28 08/14/20 14:00 Temperature Pulse Rate 88 88 87 Respiratory Rate 30 H 30 H 27 H Blood Pressure 169/84 H Pulse Oximetry 98 98 08/14/20 16:00 08/14/20 16:22 08/14/20 18:00 Temperature 99.3 F Pulse Rate 79 89 76 Respiratory Rate 22 H 23 H 30 H Blood Pressure 166/96 H 159/84 H Pulse Oximetry 97 98 99 08/14/20 20:00 08/14/20 20:02 08/14/20 21:01 Temperature 98.7 F Pulse Rate 80 83 86 Respiratory Rate 29 H 23 H Blood Pressure 167/98 H Pulse Oximetry 95 96 08/14/20 22:00 08/14/20 22:02 08/14/20 23:00 Temperature Pulse Rate 87 90 95 Respiratory Rate 32 H 33 H Blood Pressure 140/57 L Pulse Oximetry 97 96 08/14/20 23:02 08/15/20 00:00 08/15/20 00:02 Temperature 98.6 F 99.8 F H Pulse Rate 97 90 92 Respiratory Rate 26 H 32 H Blood Pressure 147/58 H 153/71 H Pulse Oximetry 94 97 08/15/20 02:00 08/15/20 02:02 08/15/20 03:30 Temperature Pulse Rate 99 99 92 Respiratory Rate 29 H 26 H Blood Pressure 131/76 Pulse Oximetry 95 97 08/15/20 04:00 08/15/20 04:02 08/15/20 06:00 Temperature 100 F H Pulse Rate 98 95 98 Respiratory Rate 30 H Blood Pressure 154/100 H Pulse Oximetry 95 08/15/20 06:02 08/15/20 08:00 08/15/20 09:20 Temperature 100.5 F H Pulse Rate 98 103 H Respiratory Rate 33 H 30 H Blood Pressure 161/96 H 165/91 H Pulse Oximetry 96 97 92 08/15/20 10:00 08/15/20 10:15 08/15/20 11:06 Temperature Pulse Rate 119 H 109 H Respiratory Rate 30 H 35 H Blood Pressure 156/93 H Pulse Oximetry 90 90 96 08/15/20 12:00 Temperature Pulse Rate Respiratory Rate Blood Pressure Pulse Oximetry 96 Intake/Output Intake/Output: Intake & Output 08/12/20 08/13/20 08/14/20 08/15/20 23:59 23:59 23:59 23:59 Intake Total 1989 982
--- NOTE | 2020-08-15 12:24 | PCDIET ---
ICU Rounding Note: Patient consuming 0-50% of meals on diabetic diet. Currently on bipap and was not able to eat gelatin this morning, per nurse. Once status improves, recommend adding Glucerna Shake (220kcal, 10g protein) TID. Also recommend adding medication to promote bowel movement, if medically appropriate. Last recorded weight is 131.9kg which is increased from last review. Bowel Motility: No documented BM as of yet. Labs Reviewed: Hgb (11.6), Hct (34.7), Glu (150), Cr (0.6), Na (136), Alb (3.3) Meds Noted: Albuterol, Decadron, Hydralazine, Remdesivir Additional Notes: No documented skin breakdown. Following daily in ICU rounds. Assessing/reassessing every 5 days.
--- NOTE | 2020-08-15 12:47 | WPDINTPN ---
Progress Note: A&P Assessment and Plan (1) Acute respiratory failure with hypoxia: Code(s): J96.01 - Acute respiratory failure with hypoxia Status: Acute Assessment and Plan: Acute Respiratory failure secondary to COVID-19 pneumonia CTA Chest on presentation IMPRESSION: 1. Widespread groundglass opacities throughout all lung zones concerning for COVID 19 pneumonia. Other processes such as influenza pneumonia and organizing pneumonia can cause a similar imaging pattern. 2. No pulmonary embolism identified patient currently on BiPAP after she was desaturating on high-flow nasal cannula. - Try her again on high-flow nasal cannula this morning on 08/15, she again desaturated was placed back on BiPAP. Continue ICU monitor ABG and PCXR reviewed and will repeat in am. continue Remdesivir, dexamethasone 08/13 received 1 unit of convalescent plasma Bronchodilators Incentive spirometer and up in chair to minimize atelectasis when not on BiPAP (2) Pneumonia due to 2019 novel coronavirus: Code(s): U07.1 - COVID-19; J12.89 - Other viral pneumonia Status: Acute Assessment and Plan: see above (3) Hypertension: Code(s): I10 - Essential (primary) hypertension Status: Acute Assessment and Plan: Hydralazine p.r.n. - patient was also started on nifedipine, home medication (4) Diabetes: Code(s): E11.9 - Type 2 diabetes mellitus without complications Status: Acute Assessment and Plan: sliding scale insulin Additional Plan DVT prophylaxis - Lovenox Stress ulcer prophylaxis - Pepcid discussed with MOHAN Sutton, updated her with patient's condition and plan of care. I answered all questions. I did discuss with her regarding the patient receiving Remdesivir, dexamethasone and also has received a dose of convalescent plasma. Code Status - patient requests to be Full Code . Total Critical Care Time : 37 minutes Due to a high probability of clinically significant, life threatening deterioration, the patient required my highest level of preparedness to intervene emergently and I personally spent this critical care time directly and personally managing the patient. This critical care time included obtaining a history; examining the patient; pulse oximetry; ordering and review of studies; arranging urgent treatment with development of a management plan; evaluation of patient's response to treatment; frequent reassessment; and discussions with other providers. It was exclusive of separately billable procedures and treating other patients and teaching time. Please see Assessment and Plan section and the rest of the note for further information on patient assessment and treatment Subjective Date/time seen: 08/15/20 12:47 Interval history: David is a 65 year old female with history of recently diagnosed HTN and Diabetes who was just discharged from [facility] where she was admitted with COVID 19 PNA - COVID-19 plasma on 08/13/2020 08/15/2020: patient seen and examined the ICU he remains on BiPAP 15/10, 85% FiO2. Patient with decreased urine output, T-max of 100.0?. LFTs trending down. Patient is awake, alert, follows simple commands and answers to questions appropriately. patient has been hypertensive overnight. Patient denies any chest pain, abdominal pain, nausea vomiting. Patient denies any cough at this time. Patient seems to be anxious Review of Systems Review of Systems: All systems reviewed & are unremarkable except as noted in HPI and below (HPI) ROS unobtainable: Yes unobtainable due to medical condition Exam Const: General: comfortable and no acute distress HENMT: Other: BiPAP in place Eyes: Sclera: sclerae normal Pupils: Equal, round and reactive pupils present Neck: Neck: supple Resp: Effort & Inspection: normal respiratory effort Auscultation: rales, no wheezes and diminished lung sounds Cardio: Rate
[2020-08-15] MEDS: INSULIN ASPART (*BKC) 100 UNITS/ML SUB-Q ×2 (12:55→17:34)
[2020-08-15] MEDS: REMDESIVIR 100 MG/NS 250 ML 100 MG/250 ML BAG 250 MG IVPB (12:55)
[2020-08-15] MEDS: NIFEdipine 30 MG TAB.ER.24 60 MG PO (12:56)
[2020-08-15 13:42] LABS: Glucose Point of Care 216 (65-105)
[2020-08-15 17:44] LABS: Glucose Point of Care 246 (65-105)
[2020-08-15] MEDS: ACETAMINOPHEN 325 MG TABLET 650 MG PO (22:49)
[2020-08-15 22:54] LABS: Glucose Point of Care 155 (65-105)
[2020-08-16] VITALS (34 sets, daily range): BP systolic 95–163; BP diastolic 57–85; PULSE 86–134; RESP 23–39; TEMP 37.2–39.7; O2SAT 88–100
[2020-08-16] MEDS: LORazepam INJ (*CRX) 2 MG/ML VIAL 0.5 MG IV PUSH (02:32)
--- NOTE | 2020-08-16 03:18 | PCRCNOTE ---
Window of time for administration has passed. See next scheduled administration.
[2020-08-16] MEDS: ALBUTEROL SULFATE (*SP) INHALER 2 PUFF INHALATION (03:19)
[2020-08-16] MEDS: ACETAMINOPHEN 325 MG TABLET 650 MG PO ×2 (03:52→20:49)
[2020-08-16] MEDS: CENTRAL LINE FLUSH 10 ML IV PUSH ×3 (04:06→20:13)
[2020-08-16] MEDS: CENTRAL LINE FLUSH 20 ML IV PUSH (04:06)
[2020-08-16 04:39] LABS: Alanine Aminotransferase 34 U/L (4-35); Albumin Level 3.4 g/dL (3.5-5.1); Alkaline Phosphatase 106 U/L (38-126); Anion Gap 6 mmol/L (8-16); Aspartate Amino Transferase 46 U/L (14-36); Bilirubin,Total 1.5 mg/dL (0.2-1.3); Blood Urea Nitrogen 15 mg/dL (7-17); Calcium 8.7 mg/dL (8.4-10.2); Carbon Dioxide 32 mmol/L (22-30); Chloride 99 mmol/L (98-107); Estimated CRCL calculation 106 ml/min; Estimated Glomerular Filt Rate > 60; Glucose 176 mg/dL (65-105); Lactate Dehydrogenase 2039 U/L (313-618); Magnesium 2.6 mg/dL (1.6-2.3); Phosphorus 2.9 mg/dL (2.5-4.5); Potassium 3.5 mmol/L (3.4-5.0); Sodium 137 mmol/L (137-145)
[2020-08-16 04:56] LABS: CRP 25.5 mg/dL (<1.0)
[2020-08-16 05:12] LABS: Basophils Percent Auto 0.2 % (0.2-1.2); Eosinophils Percent Auto 0.3 % (0-4.4); Hematocrit 34.3 % (37.0-47.0); Hemoglobin 11.5 g/dL (12.0-15.0); Immature Granulocyte Absolute 0.29 K/mm3 (0.00-0.031); Immature Granulocyte Percent A 2.5 % (0-0.5); Lymphocytes Absolute Auto 1.04 K/mm3 (0.9-3.2); Mean Corpuscular HGB Conc 33.5 g/dl (32-36); Mean Corpuscular Hemoglobin 29.5 pg (26-34); Mean Corpuscular Volume 87.9 fl (80-100); Mean Platelet Volume 9.2 fl (7.4-10.4); Monocytes Absolute Auto 0.3 K/mm3 (0.1-0.6); Monocytes Percent Auto 2.5 % (2.6-8.5); Neutrophils Absolute Auto 9.9 K/mm3 (1.3-6.7); Neutrophils Percent Auto 85.5 % (45.5-73.1); Platelet Count Result 193 k/mm3 (150-375); Red Cell Distribution Width 12.7 % (11.5-14.5); White Blood Count 11.5 K/mm3 (4.5-10.0)
[2020-08-16 05:44] LABS: D Dimer 10.62 ug/mL (<0.48)
[2020-08-16] MEDS: IPRATROPIUM BR 0.02% INH SOLN 0.5 MG/2.5 ML VIAL INHALATION (08:44)
[2020-08-16] MEDS: ALBUTEROL SULFATE NEB 2.5 MG/0.5 ML INH 5 MG INHALATION (08:44)
[2020-08-16] MEDS: ASCORBIC ACID 500 MG TABLET 1000 MG PO (08:50)
[2020-08-16] MEDS: ENOXAPARIN 40 MG/0.4 ML SYRINGE SUB-Q (08:50)
[2020-08-16] MEDS: DEXAMETHASONE SOD PHOS INJ 4 MG/ML VIAL 6 MG IV PUSH (08:51)
[2020-08-16] MEDS: CHOLECALCIFEROL 1,000 UNITS TABLET 1000 UNITS PO (08:51)
[2020-08-16] MEDS: NIFEdipine 30 MG TAB.ER.24 60 MG PO (08:51)
[2020-08-16] MEDS: ZINC SULFATE 220 MG CAPSULE PO (08:51)
[2020-08-16] MEDS: FENTANYL 2,500MCG/NS250ML(*CRX 2,500 MCG/250 ML BAG 10 MCG IV CONT (10:30)
[2020-08-16] MEDS: EPOPROSTENOL SODIUM 0.5 MG VIAL 1 MG INHALATION ×2 (11:25→19:15)
[2020-08-16 12:07] LABS: Alveolar/Arterial O2 Gradient 556.5 mmHg; Base Excess ABG -0.2 mEq/l (+/-2.0); Carboxyhemoglobin 0.1 % THb (0-2.0); Fractional Inspired Oxygen 100 %; Methemoglobin ABG 0.6 %THb (0-1.5); Oxygen Content ABG 18.5 %vol (16.0-22.0); Oxygen Saturation ABG 94.7 % (95.0-100.0); Oxyhemoglobin 93.5 % THb (90.0-100.0); PO2 FiO2 Ratio Arterial Blood 0.87 %; Reduced Hemoglobin 5.8 %THb (0-5.0)
[2020-08-16 12:11] LABS: Device VENTILATOR; Modified Allen's Test Pass; PCO2 ABG 69.5 mmHg (35.0-45.0); Site Drawn LEFT RADIAL; pH ABG 7.239 (7.350-7.450)
[2020-08-16 12:12] LABS: Arterial Blood Gas PEEP 16 cmH2O; Arterial Blood Gas Vent Mode PRESSURE CONTROL; Arterial Blood Gas Ventilator rate 26 /MIN; Peak Inspiratory Pressure 17 cmH2O
[2020-08-16] MEDS: INSULIN ASPART (*BKC) 100 UNITS/ML SUB-Q ×2 (13:02→20:09)
[2020-08-16] MEDS: REMDESIVIR 100 MG/NS 250 ML 100 MG/250 ML BAG 250 MG IVPB (13:03)
[2020-08-16 13:11] LABS: Glucose Point of Care 259 (65-105)
--- NOTE | 2020-08-16 13:55 | WPDINTPN ---
Progress Note: A&P Assessment and Plan (1) Acute respiratory failure with hypoxia: Code(s): J96.01 - Acute respiratory failure with hypoxia Status: Acute Assessment and Plan: Acute Respiratory failure secondary to COVID-19 pneumonia CTA Chest on presentation IMPRESSION: 1. Widespread groundglass opacities throughout all lung zones concerning for COVID 19 pneumonia. Other processes such as influenza pneumonia and organizing pneumonia can cause a similar imaging pattern. 2. No pulmonary embolism identified - on 08/16/2020: Patient remains on BiPAP 15/10, 100% FiO2, patient tachypneic with 35-40 breath some minute. Patient impending respiratory failure and tiring out, after discussed with the patient and her POA Jessica it was decided to intubate the patient. Patient was successfully intubated. Post intubation patient was hypoxic and required bag-mask ventilation with improvement in her oxygen levels. Patient was placed on control ventilation due to her high peak pressures, also started on Flolan. ABG and PCXR reviewed and will repeat in am. - continue Remdesivir, dexamethasone - 08/13 received 1 unit of convalescent plasma - Continue bronchodilators - sedated with fentanyl and Versed infusion, maintain RASS of 0 to -2, daily sedation vacation (2) Pneumonia due to 2019 novel coronavirus: Code(s): U07.1 - COVID-19; J12.89 - Other viral pneumonia Status: Acute Assessment and Plan: see above (3) Hypertension: Code(s): I10 - Essential (primary) hypertension Status: Acute Assessment and Plan: Hydralazine p.r.n. - patient was also started on nifedipine, home medication (4) Diabetes: Code(s): E11.9 - Type 2 diabetes mellitus without complications Status: Acute Assessment and Plan: sliding scale insulin Additional Plan DVT prophylaxis - Lovenox Stress ulcer prophylaxis - Pepcid discussed with MOHAN Sutton, updated her with patient's condition and plan of care. I answered all questions. Code Status - patient requests to be Full Code . Total Critical Care Time : 49 minutes Due to a high probability of clinically significant, life threatening deterioration, the patient required my highest level of preparedness to intervene emergently and I personally spent this critical care time directly and personally managing the patient. This critical care time included obtaining a history; examining the patient; pulse oximetry; ordering and review of studies; arranging urgent treatment with development of a management plan; evaluation of patient's response to treatment; frequent reassessment; and discussions with other providers. It was exclusive of separately billable procedures and treating other patients and teaching time. Please see Assessment and Plan section and the rest of the note for further information on patient assessment and treatment Subjective Date/time seen: 08/16/20 13:55 Interval history: David is a 65 year old female with history of recently diagnosed HTN and Diabetes who was just discharged from [facility] where she was admitted with COVID 19 PNA - COVID-19 plasma on 08/13/2020 08/16/2020: Patient remains on BiPAP this morning, FiO2 was bumped to 100%, on BiPAP 21/07. Urine output has been adequate, T-max of 102.1? F. patient is tachypneic and breathing 35-40 times a minute. Patient stated she is tired, discussed with her regarding intubation, she want me talk to Jessica her POA, discussed with Jessica at length, patient and POA both agreeable for intubation, patient was intubated, initially it was hypoxic post intubation, requiring increased peep in started on Flolan With improvement in oxygenation. Review of Systems Review of Systems: ROS unobtainable: Yes unobtainable due to endotracheal tube and unobtainable due to medical condition Exam Const: General: comfortable and no acute distress HENMT:
--- NOTE | 2020-08-16 14:04 | WPDPROCEDUR ---
Procedures Intubation Intubation Date: 08/16/20 A pre-procedural Time-Out was completed immediately before starting the procedure and confirmed: Patient Identification, Site, Procedure, Patient Position and the Availability of Requisite Equipment: Yes Sedative: etomidate Paralytic: rocuronium Laryngoscope: fiber optic video scope Assist device used: fiber optic device ET tube size: 8 Tube secured depth (cm): 23 Tube secured location: lips Tube placement confirmation: visualized tube passing through cords, equal breath sounds bilaterally, no breath sounds over epigastrium and confirmation by capnometry Patient tolerated procedure: well Intubation complications: none Additional comments: After obtaining consent from the patient and the POA and explaining the rationale for intubation. it was decided to go ahead and intubate the patient. The patient was lying in the supine position. Preoxygenation via BVM was provided for a minimum of 3 minutes. The patient had continuous cardiac as well as pulse oximetry monitoring during the procedure. Rapid sequence induction was provided by administration of Etomidate and rocuronium. A Glidescope blade 4 was used to directly visualize the vocal cords. A 7.5 mm endotracheal tube was visualized advancing between the cords to a level of 23 cm at the lip. The stylette was then removed. Tube placement was also noted by fogging in the tube, equal and bilateral breath sounds, no sounds over the epigastrium, and end-tidal colorimetric monitoring. The cuff was then inflated with 10 ml of air and the tube secured using a commercially available device. A good pulse oximetry wave form was seen on the monitor throughout the procedure. The patient was then connected to the ventilator on pressure control ventilation; rate of 26; FiO2 of 100%; and PEEP of 16. A portable chest x-ray has been ordered for placement. Continued sedation will be provided by Fentanyl and Versed continuous infusion titrated to a RASS of -2. The patient tolerated the procedure well.
--- NOTE | 2020-08-16 14:27 | PCDIET ---
ICU Rounding Note: Pt current nutrition is diabetic + Glucerna Nutrition recommendation: Recommend EN of Vital HP with goal of 70ml/hr due to morbid obesity Last recorded weight is 127.2kg Labs Reviewed: 25.5 C reactive, Ferritin 694, Glucose 176, Mg 2.6 Meds Noted:Albuterol, Vitamin C, Decadron, Remdesvir, Zinc, Vitamin D Additional Notes: Pt intubated today. She had been refusing meals prior to intubation so careful refeeding will be important with enteral nutrition. Wt up from admit wt of 125.9kg. Recommend starting Vital HP at 10ml/hr and advancing q 4 hrs to goal of 40ml/hr day one. If pt tolerates, and electrolytes remain stable, recommend advancing to goal of 70ml/hr day two. At goal of 70ml/hr, Vital HP will provide 1540 kcals, 134g protein, and 1287ml of free water. Following daily in ICU rounds. Assessing/reassessing T/F
[2020-08-16 18:35] LABS: Base Excess ABG 1.2 mEq/l (+/-2.0); HCO3 ABG 27.8 mEq/l (22.0-26.0); Oxygen Saturation ABG 98.5 % (95.0-100.0); PCO2 ABG 52.3 mmHg (35.0-45.0); pH ABG 7.343 (7.350-7.450)
[2020-08-16 18:36] LABS: Alveolar/Arterial O2 Gradient 524.7 mmHg; Carboxyhemoglobin 0.2 % THb (0-2.0); Fractional Inspired Oxygen 100 %; Methemoglobin ABG 0.4 %THb (0-1.5); Modified Allen's Test Pass; Oxyhemoglobin 97.5 % THb (90.0-100.0); PO2 FiO2 Ratio Arterial Blood 1.36 %; Reduced Hemoglobin 1.9 %THb (0-5.0); Site Drawn LEFT RADIAL
[2020-08-16 18:37] LABS: Device VENTILATOR
[2020-08-16 18:39] LABS: Arterial Blood Gas PEEP 16 cmH2O; Arterial Blood Gas Vent Mode PRESSURE CONTROL; Arterial Blood Gas Ventilator rate 26 /MIN; Peak Inspiratory Pressure 17 cmH2O
[2020-08-16 18:40] LABS: Arterial Blood Gas Pressure Support 0 cmH2O
--- NOTE | 2020-08-16 19:00 | PC.NURSE ---
Addendum entered by Niya Galvez RN 08/17/20 03:01: Patient's Fentanyl found to be running at 200 mcg/hr. Versed found to be running at 6 mg/hr. Original Note: Patient's Fentanyl found to be running at 150 mcg/hr. Versed found to be running at 5 mg/hr.
[2020-08-16 20:31] LABS: Glucose Point of Care 221 (65-105)
[2020-08-16] MEDS: FENTANYL 2,500MCG/NS250ML(*CRX 2,500 MCG/250 ML BAG 20 MCG IV CONT (22:46)
[2020-08-16 23:51] LABS: Glucose Point of Care 164 (65-105)
[2020-08-17] VITALS (49 sets, daily range): BP systolic 84–117; BP diastolic 47–86; PULSE 74–102; RESP 22–28; TEMP 36.7–39.1; O2SAT 91–99
[2020-08-17] MEDS: EPOPROSTENOL SODIUM 0.5 MG VIAL 1 MG INHALATION (01:38)
[2020-08-17] MEDS: ACETAMINOPHEN 325 MG TABLET 650 MG PO ×2 (02:24→06:57)
[2020-08-17 03:00] LABS: Alveolar/Arterial O2 Gradient 537.3 mmHg; Base Excess ABG 2.3 mEq/l (+/-2.0); Carboxyhemoglobin 0.3 % THb (0-2.0); Fractional Inspired Oxygen 100 %; HCO3 ABG 28.3 mEq/l (22.0-26.0); Methemoglobin ABG 0.5 %THb (0-1.5); Oxygen Content ABG 19.4 %vol (16.0-22.0); Oxygen Saturation ABG 98.4 % (95.0-100.0); Oxyhemoglobin 96.9 % THb (90.0-100.0); PCO2 ABG 49.7 mmHg (35.0-45.0); PO2 FiO2 Ratio Arterial Blood 1.26 %; Reduced Hemoglobin 2.3 %THb (0-5.0); Total Hemoglobin 14.1 g/dL (12.0-18.0); pH ABG 7.374 (7.350-7.450)
[2020-08-17 03:01] LABS: Device VENTILATOR; Modified Allen's Test Pass; Site Drawn LEFT RADIAL
[2020-08-17 03:03] LABS: Arterial Blood Gas PEEP 16 cmH2O; Arterial Blood Gas Vent Mode PRESSURE CONTROL; Arterial Blood Gas Ventilator rate 26 /MIN
[2020-08-17 03:07] LABS: Peak Inspiratory Pressure 17 cmH2O
[2020-08-17] MEDS: CENTRAL LINE FLUSH 10 ML IV PUSH ×2 (05:09→11:58)
[2020-08-17 05:27] LABS: Hematocrit 35.1 % (37.0-47.0); Hemoglobin 11.2 g/dL (12.0-15.0); Mean Corpuscular HGB Conc 31.9 g/dl (32-36); Mean Corpuscular Hemoglobin 29.6 pg (26-34); Mean Corpuscular Volume 92.9 fl (80-100); Mean Platelet Volume 9.4 fl (7.4-10.4); Platelet Count Result 170 k/mm3 (150-375); Red Blood Count 3.78 M/mm3 (4.2-5.4); Red Cell Distribution Width 13.2 % (11.5-14.5); White Blood Count 10.5 K/mm3 (4.5-10.0)
[2020-08-17 05:46] LABS: Alanine Aminotransferase 25 U/L (4-35); Albumin Level 3.2 g/dL (3.5-5.1); Alkaline Phosphatase 79 U/L (38-126); Anion Gap 6 mmol/L (8-16); Aspartate Amino Transferase 29 U/L (14-36); Bilirubin,Total 0.8 mg/dL (0.2-1.3); Blood Urea Nitrogen 36 mg/dL (7-17); Calcium 8.5 mg/dL (8.4-10.2); Carbon Dioxide 34 mmol/L (22-30); Chloride 100 mmol/L (98-107); Estimated CRCL calculation 44 ml/min; Estimated Glomerular Filt Rate 42; Glucose 164 mg/dL (65-105); Magnesium 2.8 mg/dL (1.6-2.3); Phosphorus 4.7 mg/dL (2.5-4.5); Potassium 3.8 mmol/L (3.4-5.0); Sodium 140 mmol/L (137-145)
[2020-08-17] MEDS: SODIUM CHLORIDE 0.9% IV 500 ML IV CONT ×2 (09:08→15:58)
[2020-08-17] MEDS: ENOXAPARIN 40 MG/0.4 ML SYRINGE SUB-Q (09:10)
[2020-08-17] MEDS: DEXAMETHASONE SOD PHOS INJ 4 MG/ML VIAL 6 MG IV PUSH (09:10)
[2020-08-17 11:14] LABS: Alveolar/Arterial O2 Gradient 532.4 mmHg; Base Excess ABG 1.2 mEq/l (+/-2.0); Carboxyhemoglobin 0.1 % THb (0-2.0); Fractional Inspired Oxygen 90 %; HCO3 ABG 27.1 mEq/l (22.0-26.0); Methemoglobin ABG 0.5 %THb (0-1.5); Oxygen Content ABG 18.2 %vol (16.0-22.0); Oxygen Saturation ABG 90.3 % (95.0-100.0); Oxyhemoglobin 90.1 % THb (90.0-100.0); PCO2 ABG 47.7 mmHg (35.0-45.0); PO2 ABG 60.4 mmHg (80.0-100.0); PO2 FiO2 Ratio Arterial Blood 0.67 %; Reduced Hemoglobin 9.3 %THb (0-5.0); Total Hemoglobin 14.4 g/dL (12.0-18.0); pH ABG 7.372 (7.350-7.450)
[2020-08-17 11:18] LABS: Arterial Blood Gas PEEP 14 cmH2O; Arterial Blood Gas Tidal Volume 380 ml; Arterial Blood Gas Vent Mode CMV; Arterial Blood Gas Ventilator rate 26 /MIN; Device VENTILATOR; Modified Allen's Test Pass; Site Drawn RIGHT RADIAL
[2020-08-17] MEDS: FENTANYL 2,500MCG/NS250ML(*CRX 2,500 MCG/250 ML BAG 20 MCG IV CONT (11:24)
--- NOTE | 2020-08-17 11:38 | PM.IMPN ---
Progress Note: A&P Assessment and Plan (1) Pneumonia due to 2019 novel coronavirus: Code(s): U07.1 - COVID-19; J12.89 - Other viral pneumonia Status: Acute Assessment and Plan: Ct showed diffuse ground glass opacities, no evidence of PE. Completed a full course of dexamethasone at [facility] however another course was started by senior project leader/team lead here. continue Remdesivir and dexamethasone, monitor liver enzymes. intubated pressure support 16, FiO2 100%, flolan started s/p convalescent plasma 08/13/2020 will continue to follow senior project leader/team lead management (2) Hypoxia: Code(s): R09.02 - Hypoxemia Status: Acute Assessment and Plan: As above likely due to COVID 19 PNA. (3) Hypertension: Code(s): I10 - Essential (primary) hypertension Status: Acute Assessment and Plan: prn hydralazine (4) Diabetes: Code(s): E11.9 - Type 2 diabetes mellitus without complications Status: Acute Assessment and Plan: Diagnosed on her last hospitalization too, Hb A1c 7.3%. continue sliding scale insulin (5) UMER (acute kidney injury): Code(s): N17.9 - Acute kidney failure, unspecified Status: Acute Assessment and Plan: worsening urine output and creatinine Subjective Date/time seen: 08/17/20 11:38 patient examined. Following senior project leader/team lead management. Patient sedated on fentanyl and Versed. Intubated 08/16- on pressure support 16, FiO2 100%. patient is on Flolan. Review of Systems Review of Systems: ROS unobtainable: Yes unobtainable due to endotracheal tube Exam Narrative: Exam Narrative: - GENERAL: Ill-appearing woman intubated sedated - HENT: ET tube in place - LUNGS: diminished lung sounds - CARDIOVASCULAR: Regular rate and rhythm. No murmur. No JVD. - ABDOMEN: hypoactive bowel sounds. - EXTREMITIES: No edema. Peripheral pulses 2+. Non-tender. - NEUROLOGIC: unable to evaluate intubated sedated - PSYCHIATRIC: unable to evaluate intubated sedated Objective Data Vital Signs Vital Signs: Vital Signs - 24 hr 08/16/20 12:00 08/16/20 13:12 08/16/20 14:00 Temperature 38.4 C H Pulse Rate 91 99 91 Respiratory Rate 25 H 26 H 25 H Blood Pressure 107/62 Pulse Oximetry 95 94 95 08/16/20 15:18 08/16/20 15:47 08/16/20 16:00 Temperature 37.8 C H Pulse Rate 117 H 89 90 Respiratory Rate 26 H 23 H 25 H Blood Pressure 95/61 L Pulse Oximetry 94 92 91 08/16/20 18:00 08/16/20 18:57 08/16/20 19:15 Temperature Pulse Rate 89 88 89 Respiratory Rate 28 H 24 H Blood Pressure 103/64 Pulse Oximetry 88 L 93 91 08/16/20 19:21 08/16/20 20:00 08/16/20 20:23 Temperature 38.6 C H Pulse Rate 93 93 100 Respiratory Rate 23 H 26 H Blood Pressure 103/57 L Pulse Oximetry 89 L 89 L 08/16/20 20:49 08/16/20 21:35 08/16/20 21:49 Temperature 38.6 C H 37.7 C H Pulse Rate 89 Respiratory Rate Blood Pressure Pulse Oximetry 91 08/16/20 22:00 08/16/20 22:46 08/16/20 23:33 Temperature Pulse Rate 86 87 92 Respiratory Rate 23 H 26 H Blood Pressure 103/57 L Pulse Oximetry 100 97 08/17/20 00:00 08/17/20 01:38 08/17/20 01:39 Temperature 38.1 C H Pulse Rate 92 95 Respiratory Rate 22 H 23 H Blood Pressure 106/61 Pulse Oximetry 99 99 99 08/17/20 02:00 08/17/20 02:23 08/17/20 02:24 Temperature 39.1 C H Pulse Rate 100 98 Respiratory Rate 28 H 27 H Blood Pressure 100/73 Pulse Oximetry 99 08/17/20 03:24 08/17/20 03:30 08/17/20 04:00 Temperature 38.2 C H 38.3 C H Pulse Rate 91 93 Respiratory Rate 26 H Blood Pressure 103/86 Pulse Oximetry 97 96 08/17/20 05:13 08/17/20 05:14 08/17/20 05:40 Temperature Pulse Rate 91 90 93 Respiratory Rate 22 H 26 H Blood Pressure Pulse Oximetry 96 08/17/20 06:00 08/17/20 06:57 08/17/20 08:00 Temperature 38.4 C H 38.3 C H Pulse Rate 102 H 95 Respiratory Rate 28 H 22 H Blood Pressure 105/86 104/61 P
--- NOTE | 2020-08-17 11:51 | PCFNICU ---
ICU Rounding Note: Pt current nutrition is NPO. Nutrition recommendation: tube feedings of Vital HP at 10 ml/hr advance to 40 ml/hr day 1. Last recorded weight is 126.6 kg up from 125.9 kg on admit. Bowel Motility:NO BM reported. Labs Reviewed:Cr 1.5,Alb 3.2 Meds Noted: Vit C, Zinc, Vit D, Versed, Fentanyl. Additional Notes: Patient remains on mechanical ventilator. Tube feedings to start today of Vital HP at 10 ml/hr advance to 40 ml/hr day 1. Day 2 if tolerated advance to 70 ml/hr, which will provide 1540 kcals/134 gms protein/1287 ml water. Following daily in ICU rounds. Assessing/reassessing every Saturday and Saturday.
[2020-08-17] MEDS: ASCORBIC ACID 500 MG TABLET 1000 MG PO (11:58)
[2020-08-17] MEDS: CHOLECALCIFEROL 1,000 UNITS TABLET 1000 UNITS PO (11:58)
[2020-08-17] MEDS: ZINC SULFATE 220 MG CAPSULE PO (11:58)
[2020-08-17 12:40] LABS: Glucose Point of Care 191 (65-105)
--- NOTE | 2020-08-17 13:15 | WPDINTPN ---
Progress Note: A&P Assessment and Plan (1) Acute respiratory failure with hypoxia: Code(s): J96.01 - Acute respiratory failure with hypoxia Status: Acute Assessment and Plan: Acute Respiratory failure secondary to COVID-19 pneumonia CTA Chest on presentation IMPRESSION: 1. Widespread groundglass opacities throughout all lung zones concerning for COVID 19 pneumonia. Other processes such as influenza pneumonia and organizing pneumonia can cause a similar imaging pattern. 2. No pulmonary embolism identified - on 08/16/2020: Patient remains on BiPAP 15/10, 100% FiO2, patient tachypneic with 35-40 breath some minute. Patient impending respiratory failure and tiring out, after discussed with the patient and her POA Jessica it was decided to intubate the patient. Patient was successfully intubated. Post intubation patient was hypoxic and required bag-mask ventilation with improvement in her oxygen levels. Patient was placed on control ventilation due to her high peak pressures, also started on Flolan. - ABGs and chest x-ray reviewed, will wean Flolan to off. - continue Remdesivir, dexamethasone - 08/13 received 1 unit of convalescent plasma - Continue bronchodilators - sedated with fentanyl and Versed infusion, maintain RASS of 0 to -2, daily sedation vacation (2) Pneumonia due to 2019 novel coronavirus: Code(s): U07.1 - COVID-19; J12.89 - Other viral pneumonia Status: Acute Assessment and Plan: see above (3) Hypertension: Code(s): I10 - Essential (primary) hypertension Status: Acute Assessment and Plan: Hydralazine p.r.n. (4) Diabetes: Code(s): E11.9 - Type 2 diabetes mellitus without complications Status: Acute Assessment and Plan: sliding scale insulin Additional Plan DVT prophylaxis - Lovenox Stress ulcer prophylaxis - Pepcid discussed with MOHAN Sutton, updated her with patient's condition and plan of care. I answered all questions. Code Status - patient requests to be Full Code . Total Critical Care Time : 33 minutes Due to a high probability of clinically significant, life threatening deterioration, the patient required my highest level of preparedness to intervene emergently and I personally spent this critical care time directly and personally managing the patient. This critical care time included obtaining a history; examining the patient; pulse oximetry; ordering and review of studies; arranging urgent treatment with development of a management plan; evaluation of patient's response to treatment; frequent reassessment; and discussions with other providers. It was exclusive of separately billable procedures and treating other patients and teaching time. Please see Assessment and Plan section and the rest of the note for further information on patient assessment and treatment Subjective Date/time seen: 08/17/20 13:15 Interval history: David is a 65 year old female with history of recently diagnosed HTN and Diabetes who was just discharged from [facility] [place] where she was admitted with COVID 19 PNA - COVID-19 plasma on 08/13/2020 - intubated on 08/16/2020 08/17/2020: Patient remains intubated on pressure control ventilation, peep of 16, 100% FiO2. Sedated with fentanyl 200 mcg/hour and Versed 6 mg/hour. Patient does not open her eyes follows simple commands. Currently on Flolan. Urine output has been low, creatinine up to 1.5 ( from 0.6 yesterday). Hemodynamically stable, T-max of 102.3?. Review of Systems Review of Systems: ROS unobtainable: Yes unobtainable due to endotracheal tube and unobtainable due to medical condition Exam Const: General: comfortable and no acute distress HENMT: Other: ETT in place Eyes: Sclera: sclerae normal Pupils: Equal, round and reactive pupils present Neck: Neck: supple Resp: Effort & Inspection: normal respiratory effort Auscultation: rales, no
[2020-08-17] MEDS: ALBUTEROL SULFATE NEB 2.5 MG/0.5 ML INH 5 MG INHALATION ×2 (14:50→21:16)
[2020-08-17] MEDS: IPRATROPIUM BR 0.02% INH SOLN 0.5 MG/2.5 ML VIAL INHALATION ×2 (14:50→21:16)
--- NOTE | 2020-08-17 15:58 | PC.NURSE ---
Patient febrile 100.3 after 1000 mg ivpb Acetaminophen. Ice packs placed bilaterally underarms. Will continue to monitor closely.
[2020-08-17] MEDS: NOREPINEPHRINE 8 MG/D5W 250 ML 8 MG/250 ML BAG 9.38 MG IV CONT (17:26)
[2020-08-17] MEDS: INSULIN ASPART (*BKC) 100 UNITS/ML SUB-Q (17:36)
[2020-08-17 18:48] LABS: Glucose Point of Care 226 (65-105)
[2020-08-18] VITALS (36 sets, daily range): BP systolic 97–129; BP diastolic 54–60; PULSE 71–85; RESP 26; TEMP 36.7–37.1; O2SAT 24–96
[2020-08-18 00:31] LABS: Glucose Point of Care 245 (65-105)
[2020-08-18] MEDS: FENTANYL 2,500MCG/NS250ML(*CRX 2,500 MCG/250 ML BAG 20 MCG IV CONT ×2 (00:51→15:11)
[2020-08-18] MEDS: ALBUTEROL SULFATE NEB 2.5 MG/0.5 ML INH 5 MG INHALATION ×5 (03:28→21:15)
[2020-08-18] MEDS: IPRATROPIUM BR 0.02% INH SOLN 0.5 MG/2.5 ML VIAL INHALATION ×5 (03:29→21:15)
[2020-08-18 06:00] LABS: Hematocrit 35.2 % (37.0-47.0); Hemoglobin 11.3 g/dL (12.0-15.0); Mean Corpuscular HGB Conc 32.1 g/dl (32-36); Mean Corpuscular Hemoglobin 29.8 pg (26-34); Mean Corpuscular Volume 92.9 fl (80-100); Mean Platelet Volume 9.7 fl (7.4-10.4); Platelet Count Result 211 k/mm3 (150-375); Red Blood Count 3.79 M/mm3 (4.2-5.4); Red Cell Distribution Width 13.2 % (11.5-14.5); White Blood Count 11.9 K/mm3 (4.5-10.0)
[2020-08-18 06:18] LABS: Alanine Aminotransferase 23 U/L (4-35); Alkaline Phosphatase 77 U/L (38-126); Anion Gap 9 mmol/L (8-16); Aspartate Amino Transferase 26 U/L (14-36); Bilirubin,Total 0.6 mg/dL (0.2-1.3); Blood Urea Nitrogen 53 mg/dL (7-17); Calcium 8.7 mg/dL (8.4-10.2); Carbon Dioxide 29 mmol/L (22-30); Chloride 103 mmol/L (98-107); Estimated CRCL calculation 59 ml/min; Estimated Glomerular Filt Rate 60; Glucose 222 mg/dL (65-105); Lactate Dehydrogenase 1136 U/L (313-618); Magnesium 3.2 mg/dL (1.6-2.3); Potassium 3.7 mmol/L (3.4-5.0); Sodium 141 mmol/L (137-145)
[2020-08-18 06:46] LABS: Alveolar/Arterial O2 Gradient 515.7 mmHg; Base Excess ABG -0.3 mEq/l (+/-2.0); Carboxyhemoglobin 0.3 % THb (0-2.0); Fractional Inspired Oxygen 90 %; HCO3 ABG 25.2 mEq/l (22.0-26.0); Methemoglobin ABG 0.3 %THb (0-1.5); Oxygen Content ABG 15.7 %vol (16.0-22.0); Oxygen Saturation ABG 95.5 % (95.0-100.0); PCO2 ABG 44.6 mmHg (35.0-45.0); PO2 ABG 80.3 mmHg (80.0-100.0); PO2 FiO2 Ratio Arterial Blood 0.89 %; Reduced Hemoglobin 5.4 %THb (0-5.0); Total Hemoglobin 11.8 g/dL (12.0-18.0)
[2020-08-18 06:47] LABS: Arterial Blood Gas Ventilator rate 26 /MIN; Device VENTILATOR; Modified Allen's Test Pass; Site Drawn RIGHT RADIAL
[2020-08-18 06:48] LABS: Arterial Blood Gas PEEP 14 cmH2O; Arterial Blood Gas Tidal Volume 400 ml; Arterial Blood Gas Vent Mode CMV
[2020-08-18] MEDS: INSULIN ASPART (*BKC) 100 UNITS/ML SUB-Q ×5 (06:49→23:49)
[2020-08-18] MEDS: CENTRAL LINE FLUSH 10 ML IV PUSH ×4 (06:49→20:31)
[2020-08-18 06:58] LABS: Glucose Point of Care 228 (65-105)
[2020-08-18 07:34] LABS: D Dimer > 20.00 ug/mL (<0.48)
[2020-08-18] MEDS: INSULIN DETEMIR 100 UNITS/ML 6 UNITS SUB-Q ×2 (08:28→20:30)
[2020-08-18] MEDS: DEXAMETHASONE SOD PHOS INJ 4 MG/ML VIAL 6 MG IV PUSH (08:48)
[2020-08-18] MEDS: ASCORBIC ACID 500 MG TABLET 1000 MG PO (08:49)
[2020-08-18] MEDS: CHOLECALCIFEROL 1,000 UNITS TABLET 1000 UNITS PO (08:49)
[2020-08-18 08:50] LABS: Hemoglobin A1C 7.4 % (<5.7)
[2020-08-18] MEDS: ENOXAPARIN 40 MG/0.4 ML SYRINGE SUB-Q ×2 (08:50→20:30)
[2020-08-18] MEDS: ZINC SULFATE 220 MG CAPSULE PO (08:51)
[2020-08-18 12:34] LABS: Glucose Point of Care 283 (65-105)
--- NOTE | 2020-08-18 13:21 | WPDINTPN ---
Progress Note: A&P Assessment and Plan (1) Acute respiratory failure with hypoxia: Code(s): J96.01 - Acute respiratory failure with hypoxia Status: Acute Assessment and Plan: Acute Respiratory failure secondary to COVID-19 pneumonia CTA Chest on presentation showed ground-glass opacities - on 08/16/2020: Patient remains on BiPAP 15/10, 100% FiO2, patient tachypneic with 35-40 breath some minute. Patient impending respiratory failure and tiring out, after discussed with the patient and her POA Jessica it was decided to intubate the patient. Patient was successfully intubated. Post intubation patient was hypoxic and required bag-mask ventilation with improvement in her oxygen levels. - was started on Flolan 08/16/2020 - ABGs and chest x-ray reviewed, - Flolan discontinued on 08/17/2020 - continue Remdesivir, dexamethasone - 08/13 received 1 unit of convalescent plasma - Continue bronchodilators - sedated with fentanyl and Versed infusion, maintain RASS of 0 to -2, daily sedation vacation (2) Pneumonia due to 2019 novel coronavirus: Code(s): U07.1 - COVID-19; J12.89 - Other viral pneumonia Status: Acute Assessment and Plan: see above (3) UMER (acute kidney injury): Code(s): N17.9 - Acute kidney failure, unspecified Status: Acute Assessment and Plan: acute kidney injury most likely related to hypoxia - patient was given small bolus of IV fluids - creatinine trending down, continue monitor urine output, renal function and electrolytes (4) Hypertension: Code(s): I10 - Essential (primary) hypertension Status: Acute Assessment and Plan: hydralazine p.r.n. (5) Diabetes: Code(s): E11.9 - Type 2 diabetes mellitus without complications Status: Acute Assessment and Plan: continue Accu-Cheks and sliding scale insulin - hyperglycemic likely secondary to dexamethasone - will add Levemir for better blood sugar control (6) DVT prophylaxis: Code(s): Z29.9 - Encounter for prophylactic measures, unspecified Status: Acute Assessment and Plan: continue Lovenox 40 mg subcu q.12 hours (7) Dietary counseling and surveillance: Code(s): Z71.3 - Dietary counseling and surveillance Status: Acute Assessment and Plan: patient was started on tube feeds on 08/17/2020, advance as tolerated to goal Additional Plan discussed with MOHAN Sutton, updated her with patient's condition and plan of care. I answered all questions. she wanted other family members a conference call on 08/19/2020 Code Status - patient requests to be Full Code . Total Critical Care Time : 34 minutes Due to a high probability of clinically significant, life threatening deterioration, the patient required my highest level of preparedness to intervene emergently and I personally spent this critical care time directly and personally managing the patient. This critical care time included obtaining a history; examining the patient; pulse oximetry; ordering and review of studies; arranging urgent treatment with development of a management plan; evaluation of patient's response to treatment; frequent reassessment; and discussions with other providers. It was exclusive of separately billable procedures and treating other patients and teaching time. Please see Assessment and Plan section and the rest of the note for further information on patient assessment and treatment Subjective Date/time seen: 08/18/20 13:21 Interval history: David is a 65 year old female with history of recently diagnosed HTN and Diabetes who was just discharged from [facility] where she was admitted with COVID 19 PNA - COVID-19 plasma on 08/13/2020 - intubated on 08/16/2020 08/18/2020: Patient remains intubated on CMV mode of ventilation, peep of 14 and 90% FiO2 urine output has been adequate, patient is afebrile. Remains on fentanyl 200
--- NOTE | 2020-08-18 15:41 | PCDIET ---
ICU Rounding Note: Pt current nutrition is Vital HP at 40ml/hr Nutrition recommendation: Increase to goal of 70ml/hr (10ml q 4hrs to goal) Last recorded weight is 126.8kg, up from assessed wt of 125.9kg Bowel Motility: 08/10 Labs Reviewed:Hgb 11.3, Hct 35.2, Alb 3.0, Mg 3.2, Ferritin 900, C Reactive 39, 7.4 A1c Meds Noted: Vitamin D, Zinc, Lovenox, Ativan, Levemir, Novolog, Versed, Levophed, Decadron, Fentanyl, Albuterol Additional Notes: Pt tolerating Vital HP at 40ml/hr. MD agreeable to advancing to goal of 70ml/hr to provide 1540 kcals, 134 g protein, and 1287ml of free water. -600 I/O. Skin WNL. Following daily in ICU rounds. Assessing/reassessing q T/F.
--- NOTE | 2020-08-18 16:20 | PM.IMPN ---
Progress Note: A&P Assessment and Plan (1) Pneumonia due to 2019 novel coronavirus: Code(s): U07.1 - COVID-19; J12.89 - Other viral pneumonia Status: Acute (2) Hypoxia: Code(s): R09.02 - Hypoxemia Status: Acute Assessment and Plan: As above likely due to COVID 19 PNA. (3) Hypertension: Qualifiers: Hypertension type: essential hypertension Qualified Code(s): I10 - Essential (primary) hypertension Code(s): I10 - Essential (primary) hypertension Status: Acute (4) Diabetes: Qualifiers: Diabetes mellitus complication status: without complication Diabetes mellitus lobsterman insulin use: without lobsterman use Diabetes mellitus type: type 2 Qualified Code(s): E11.9 - Type 2 diabetes mellitus without complications Code(s): E11.9 - Type 2 diabetes mellitus without complications Status: Acute (5) UMER (acute kidney injury): Code(s): N17.9 - Acute kidney failure, unspecified Status: Acute Additional Plan # COVID-19 pneumonia - diagnosed early first week of 08/2020 [facility] and treated with full course of dexamethasone - s/p remdesivir completed 08/16, dexamethasone 08/12- - 1 dose of convalescent plasma on 08/13 - CTA chest showed diffuse ground-glass capacity, no PE - nebulizer: Albuterol and atrovent - supplements: Vitamin-C, vitamin-D, zinc - Lovenox 40 mg b.i.d. COVID-19 - Tylenol for fever - inflammatory markers elevated, trending Q 48 hours - intubated 08/16- CMV mode 90% FiO2, peep 14 - completed 24 hours of Flolan 08/16-08/17 - sedated: Fentanyl, versed, prn ativan - prn levophed for hypotension also has prn hydralazine for hypertension however blood pressures have been stable - peripatologist consulted for management # UMER - creatinine improving to 1.1 from 1.5 - may be prerenal, patient had p.r.n. levophed, may be component of ATN, currently hemodynamically stable #type 2 diabetes - Hold metformin - Hgb a1c 7.4 - hyperglycemia from dexamethasone, continue moderate dose sliding scale insulin aspart and Levemir 6u # other chronic conditions - Hypertension: stopped nifedipine Diet: Tube feeds DVT prophylaxis: Lovenox 40 mg b.i.d. COVID-19 GI stress prophylaxis: Protonix Code status: Full code Disposition: ICU Subjective Date/time seen: 08/18/20 16:20 Patient examined. Patient intubated, sedated. Discussed with peripatologist. Flolan stopped yesterday. patient is stable. kidney function is improving. tube feeds have been started. she completed remdesivir course, still on dexamethasone, had 1 dose of convalescent plasma. blood pressures are stable, no need for levophed or hydralazine. Review of Systems Review of Systems: ROS unobtainable: Yes unobtainable due to endotracheal tube Exam Narrative: Exam Narrative: - GENERAL: Ill-appearing woman intubated sedated - HENT: ET tube in place - LUNGS: diminished lung sounds intubated - CARDIOVASCULAR: Regular rate and rhythm. No murmur. No JVD. - ABDOMEN: hypoactive bowel sounds. - EXTREMITIES: No edema. Peripheral pulses 2+. midline RUE - NEUROLOGIC: unable to evaluate intubated sedated - PSYCHIATRIC: unable to evaluate intubated sedated Objective Data Vital Signs Vital Signs: Vital Signs - 24 hr 08/17/20 16:52 08/17/20 16:53 08/17/20 17:02 Temperature Pulse Rate 78 78 83 Respiratory Rate 26 H 26 H Blood Pressure Pulse Oximetry 98 08/17/20 17:26 08/17/20 17:32 08/17/20 18:00 Temperature 36.7 C Pulse Rate 76 76 75 Respiratory Rate 26 H 26 H Blood Pressure 84/47 L 115/56 L Pulse Oximetry 97 08/17/20 19:11 08/17/20 19:24 08/17/20 19:27 Temperature 36.7 C Pulse Rate 75 75 75 Respiratory Rate 26 H 26 H 26 H Blood Pressure 117/55 L Pulse Oximetry 96 96 08/17/20 19:28 08/17/20 19:29 08/17/20 20:00 Temperature Pulse Rate 75 75 74 Respiratory Rate 26 H Blood Pressure 117/55 L Pulse Oximetry
[2020-08-18 19:48] LABS: Glucose Point of Care 372 (65-105)
[2020-08-19] VITALS (30 sets, daily range): BP systolic 110–138; BP diastolic 57–73; PULSE 72–107; RESP 19–30; TEMP 36.7–38.1; O2SAT 90–96
[2020-08-19 00:07] LABS: Glucose Point of Care 395 (65-105)
[2020-08-19] MEDS: IPRATROPIUM BR 0.02% INH SOLN 0.5 MG/2.5 ML VIAL INHALATION ×4 (02:54→20:39)
[2020-08-19] MEDS: ALBUTEROL SULFATE NEB 2.5 MG/0.5 ML INH 5 MG INHALATION ×4 (02:54→20:38)
[2020-08-19] MEDS: FENTANYL 2,500MCG/NS250ML(*CRX 2,500 MCG/250 ML BAG 20 MCG IV CONT ×2 (04:33→17:23)
[2020-08-19 05:19] LABS: Hematocrit 30.9 % (37.0-47.0); Hemoglobin 9.9 g/dL (12.0-15.0); Mean Corpuscular Hemoglobin 29.5 pg (26-34); Platelet Count Result 195 k/mm3 (150-375); Red Blood Count 3.36 M/mm3 (4.2-5.4); Red Cell Distribution Width 13.4 % (11.5-14.5); White Blood Count 8.2 K/mm3 (4.5-10.0)
[2020-08-19 05:34] LABS: Alveolar/Arterial O2 Gradient 441.1 mmHg; Base Excess ABG 2.8 mEq/l (+/-2.0); Carboxyhemoglobin 0.3 % THb (0-2.0); Device VENTILATOR; Fractional Inspired Oxygen 80 %; HCO3 ABG 29.3 mEq/l (22.0-26.0); Methemoglobin ABG 0.3 %THb (0-1.5); Modified Allen's Test Pass; Oxygen Content ABG 19.3 %vol (16.0-22.0); Oxygen Saturation ABG 94.5 % (95.0-100.0); Oxyhemoglobin 92.6 % THb (90.0-100.0); PCO2 ABG 51.9 mmHg (35.0-45.0); PO2 ABG 74.8 mmHg (80.0-100.0); PO2 FiO2 Ratio Arterial Blood 0.94 %; Reduced Hemoglobin 6.8 %THb (0-5.0); Site Drawn LEFT RADIAL; Total Hemoglobin 14.8 g/dL (12.0-18.0); pH ABG 7.369 (7.350-7.450)
[2020-08-19 05:37] LABS: Alanine Aminotransferase 22 U/L (4-35); Albumin Level 2.7 g/dL (3.5-5.1); Alkaline Phosphatase 71 U/L (38-126); Anion Gap 6 mmol/L (8-16); Aspartate Amino Transferase 22 U/L (14-36); Bilirubin,Total 0.5 mg/dL (0.2-1.3); Blood Urea Nitrogen 60 mg/dL (7-17); Calcium 8.1 mg/dL (8.4-10.2); Carbon Dioxide 32 mmol/L (22-30); Chloride 105 mmol/L (98-107); Estimated CRCL calculation 72 ml/min; Estimated Glomerular Filt Rate > 60; Glucose 365 mg/dL (65-105); Potassium 3.8 mmol/L (3.4-5.0); Sodium 143 mmol/L (137-145)
[2020-08-19 05:43] LABS: Arterial Blood Gas PEEP 14 cmH2O; Arterial Blood Gas Tidal Volume 400 ml; Arterial Blood Gas Vent Mode ASSIST CONTROL; Arterial Blood Gas Ventilator rate 26 /MIN
[2020-08-19] MEDS: INSULIN ASPART (*BKC) 100 UNITS/ML SUB-Q ×3 (07:21→18:12)
[2020-08-19] MEDS: CENTRAL LINE FLUSH 10 ML IV PUSH ×3 (07:22→20:21)
[2020-08-19 08:19] LABS: Hemoglobin A1C 7.6 % (<5.7)
[2020-08-19] MEDS: CHOLECALCIFEROL 1,000 UNITS TABLET 1000 UNITS PO (09:13)
[2020-08-19] MEDS: ASCORBIC ACID 500 MG TABLET 1000 MG PO (09:13)
[2020-08-19] MEDS: ZINC SULFATE 220 MG CAPSULE PO (09:14)
[2020-08-19] MEDS: DEXAMETHASONE SOD PHOS INJ 4 MG/ML VIAL 6 MG IV PUSH (09:14)
[2020-08-19] MEDS: ENOXAPARIN 40 MG/0.4 ML SYRINGE SUB-Q ×2 (09:14→20:20)
[2020-08-19] MEDS: INSULIN DETEMIR 100 UNITS/ML 15 UNITS SUB-Q ×2 (09:15→20:21)
--- NOTE | 2020-08-19 12:10 | PCDIET ---
Nutrition Follow-Up Complete: Inadequate Oral Intake as related to Pneumonia as evidenced by reported 20 lbs and poor po intake. Adequate Intake of at least 75% of meals Goal: Unable to progress towards goal at this time due to mechanical ventilation. Will work to meet total nutrition needs. Pt current nutrition is Vital HP at 60ml/hr Nutrition recommendation: Stay at 60 and hold on increase to goal of 70ml/hr to limit fluids at this time Last recorded weight is 129.7kg, up from 126.8kg yesterday. I/O +178 Bowel Motility: 08/10 recommend motility agent Labs Reviewed:Hgb 9.9, Hct 30.9, Alb 2.7, BUN 60, potassium and phosphorus normal, Glucose 365, A1c 7.6 Meds Noted: Vitamin D, Zinc, Lovenox, Ativan, Levemir, Novolog, Versed, Levophed, Decadron, Fentanyl, Albuterol Additional Notes: Pt tolerating Vital HP at 60ml/hr. Plans to hold here to limit excess fluids. At 60ml/hr, Vital HP is providing 1320 kcals, 1103ml of free water and 115g protein, meeting 86% of nutrition needs. Recommend advancing nutrition as tolerated to final goal of 70ml/hr to provide 1540 kcals, 134 g protein, and 1287ml of free water. Skin WNL. Following daily in ICU rounds. Assessing/reassessing q T/F.
[2020-08-19 12:18] LABS: Glucose Point of Care 262 (65-105)
--- NOTE | 2020-08-19 13:14 | WPDINTPN ---
Progress Note: A&P Assessment and Plan (1) Acute respiratory failure with hypoxia: Code(s): J96.01 - Acute respiratory failure with hypoxia Status: Acute Assessment and Plan: Acute Respiratory failure secondary to COVID-19 pneumonia CTA Chest on presentation showed ground-glass opacities - on 08/16/2020: patient failed BiPAP, INTUBATED for impending respiratory failure secondary to significant tachypnea and desaturation. - was started on Flolan 08/16/2020 - Flolan discontinued on 08/17/2020 - Completed course of Remdesivir - continue dexamethasone - 08/13 received 1 unit of convalescent plasma - Continue bronchodilators - sedated with fentanyl and Versed infusion, maintain RASS of 0 to -2, daily sedation vacation - continue low-dose strategy, with tidal volume of 350, rate of 30, peep of 12, 70% FiO2 (2) Pneumonia due to 2019 novel coronavirus: Code(s): U07.1 - COVID-19; J12.89 - Other viral pneumonia Status: Acute Assessment and Plan: see above (3) UMER (acute kidney injury): Code(s): N17.9 - Acute kidney failure, unspecified Status: Acute Assessment and Plan: acute kidney injury most likely related to hypoxia - Creatinine 0.9 this morning - continue monitor urine output, renal function and electrolytes (4) Hypertension: Qualifiers: Hypertension type: essential hypertension Qualified Code(s): I10 - Essential (primary) hypertension Code(s): I10 - Essential (primary) hypertension Status: Acute Assessment and Plan: hydralazine p.r.n. (5) Diabetes: Qualifiers: Diabetes mellitus type: type 2 Diabetes mellitus longterm insulin use: without longterm use Diabetes mellitus complication status: without complication Qualified Code(s): E11.9 - Type 2 diabetes mellitus without complications Code(s): E11.9 - Type 2 diabetes mellitus without complications Status: Acute Assessment and Plan: continue Accu-Cheks and sliding scale insulin - hyperglycemic likely secondary to dexamethasone - increase Levemir (6) DVT prophylaxis: Code(s): Z29.9 - Encounter for prophylactic measures, unspecified Status: Acute Assessment and Plan: continue Lovenox 40 mg subcu q.12 hours (7) Dietary counseling and surveillance: Code(s): Z71.3 - Dietary counseling and surveillance Status: Acute Assessment and Plan: patient was started on tube feeds on 08/17/2020, advance as tolerated to goal Additional Plan discussed with MOHAN Sutton, updated her with patient's condition and plan of care. I answered all questions. she wanted other family members a conference call on 08/19/2020 Code Status - patient requests to be Full Code . Total Critical Care Time : 33 minutes Due to a high probability of clinically significant, life threatening deterioration, the patient required my highest level of preparedness to intervene emergently and I personally spent this critical care time directly and personally managing the patient. This critical care time included obtaining a history; examining the patient; pulse oximetry; ordering and review of studies; arranging urgent treatment with development of a management plan; evaluation of patient's response to treatment; frequent reassessment; and discussions with other providers. It was exclusive of separately billable procedures and treating other patients and teaching time. Please see Assessment and Plan section and the rest of the note for further information on patient assessment and treatment Subjective Date/time seen: 08/19/20 13:14 Interval history: David is a 65 year old female with history of recently diagnosed HTN and Diabetes who was just discharged from [facility] where she was admitted with COVID 19 PNA - COVID-19 plasma on 08/13/2020 - intubated on 08/16/2020 08/19/2020: Patient remains intubated on CMV
[2020-08-19 18:11] LABS: Glucose Point of Care 305 (65-105)
--- NOTE | 2020-08-19 19:37 | PM.IMPN ---
Progress Note: A&P Assessment and Plan (1) Pneumonia due to 2019 novel coronavirus: Code(s): U07.1 - COVID-19; J12.89 - Other viral pneumonia Status: Acute (2) Hypoxia: Code(s): R09.02 - Hypoxemia Status: Acute Assessment and Plan: As above likely due to COVID 19 PNA. (3) Hypertension: Qualifiers: Hypertension type: essential hypertension Qualified Code(s): I10 - Essential (primary) hypertension Code(s): I10 - Essential (primary) hypertension Status: Acute (4) Diabetes: Qualifiers: Diabetes mellitus type: type 2 Diabetes mellitus penitentiary insulin use: without penitentiary use Diabetes mellitus complication status: without complication Qualified Code(s): E11.9 - Type 2 diabetes mellitus without complications Code(s): E11.9 - Type 2 diabetes mellitus without complications Status: Acute (5) UMER (acute kidney injury): Code(s): N17.9 - Acute kidney failure, unspecified Status: Acute Additional Plan # COVID-19 pneumonia - diagnosed early first week of 08/2020 [facility] and treated with full course of dexamethasone - s/p remdesivir completed 08/16, dexamethasone 08/12- - 1 dose of convalescent plasma on 08/13 - CTA chest showed diffuse ground-glass capacity, no PE - nebulizer: Albuterol and atrovent - supplements: Vitamin-C, vitamin-D, zinc - Lovenox 40 mg b.i.d. COVID-19 - Tylenol for fever - inflammatory markers elevated, trending Q 48 hours - intubated 08/16- CMV mode 80% FiO2, peep 12 - completed 24 hours of Flolan 08/16-08/17 - sedated: Fentanyl, versed, prn ativan - registered nurse first assistant consulted for management # UMER - creatinine improving to 1.1 from 1.5 - may be prerenal, patient had p.r.n. levophed, may be component of ATN, currently hemodynamically stable #type 2 diabetes - Hold metformin - Hgb a1c 7.4 - hyperglycemia from dexamethasone, continue moderate dose sliding scale insulin aspart and Levemir 6u # other chronic conditions - Hypertension: stopped nifedipine Diet: Tube feeds DVT prophylaxis: Lovenox 40 mg b.i.d. COVID-19 GI stress prophylaxis: Protonix Code status: Full code Disposition: ICU Subjective Date/time seen: 08/19/20 19:37 patient examined. Respiration rate set at 30. She is clinically stable. CMV peep 12, 80% FiO2. Tolerating tube feeds. Review of Systems Review of Systems: ROS unobtainable: Yes unobtainable due to endotracheal tube Exam Narrative: Exam Narrative: - GENERAL: Ill-appearing obese woman intubated sedated - HENT: ET tube in place , OG tube in place - LUNGS: diminished lung sounds intubated - CARDIOVASCULAR: Regular rate and rhythm. No murmur. No JVD. - ABDOMEN: hypoactive bowel sounds. obese - EXTREMITIES: No edema. Peripheral pulses 2+. midline RUE - NEUROLOGIC: unable to evaluate intubated sedated - PSYCHIATRIC: unable to evaluate intubated sedated Objective Data Vital Signs Vital Signs: Vital Signs - 24 hr 08/18/20 20:00 08/18/20 21:15 08/18/20 21:26 Temperature 36.9 C Pulse Rate 73 75 75 Respiratory Rate 26 H 26 H 26 H Blood Pressure 108/54 L Pulse Oximetry 93 93 08/18/20 22:00 08/18/20 23:58 08/19/20 00:00 Temperature 36.8 C 36.8 C Pulse Rate 83 76 76 Respiratory Rate 26 H 26 H Blood Pressure 113/57 L 110/57 L Pulse Oximetry 95 94 93 08/19/20 02:00 08/19/20 02:59 08/19/20 03:00 Temperature 36.7 C Pulse Rate 74 83 83 Respiratory Rate 26 H 27 H Blood Pressure 114/59 L Pulse Oximetry 94 93 08/19/20 03:46 08/19/20 04:00 08/19/20 04:33 Temperature 36.7 C Pulse Rate 80 84 81 Respiratory Rate 26 H 25 H 24 H Blood Pressure 127/60 Pulse Oximetry 93 08/19/20 04:36 08/19/20 05:30 08/19/20 06:00 Temperature 36.8 C Pulse Rate 81 79 77 Respiratory Rate 24 H 26 H Blood Pressure 124/63 Pulse Oximetry 91 92 08/19/20 08:00 08/19/20 09:10 08/19/20 09:20 Temperature 36.8 C Pulse Rate 76 75
[2020-08-20] VITALS (37 sets, daily range): BP systolic 109–138; BP diastolic 60–71; PULSE 81–143; RESP 18–44; TEMP 37.2–39.3; O2SAT 84–95
--- NOTE | 2020-08-20 | ECHO_ITS ---
Patient Info Name: Lilli Hernandez Age: 65 years : 1955 Gender: Female Ht: 64 in Wt: 285 lbs BSA: 2.49 m2 HR: 99 bpm BP: 131 / 71 mmHg Heart Rhythm: Sinus Rhythm Technical Quality: Poor Exam Date: 08/20/2020 9:19 AM Exam Location: [facility] Pulmonary Patient Status: Inpatient Admit Date: 08/12/2020 Staff Ordering Physician: Martha Cosby MD Purchasing Expeditor: Eneida Jung [facility] Attending Provider: Ady Raymond MD Exam Type: CA echo dop color flow w con Study Info Complete two-dimensional, color flow and Doppler transthoracic echocardiogram is performed with contrast to opacify the left ventricle and to improve the deliniation of the left ventricle endocardial borders. Contrast/Agitated Saline Contrast/Ag. Saline: Definity Amount: 4.00 ml Summary 1. Technically difficult study, poor image quality; echo contrast used. Normal LV size and wall thickness; hyperdynamic LV systolic function with ejection fraction more than 70%. Normal diastolic function. Valves are not well visualized. Unable to assess RVSP due to inadequate TR jet velocity. Sinus rhythm. Left Ventricle Left ventricular chamber dimension is normal. Left ventricular systolic function is hyperdynamic, estimated at >70%. The left ventricular diastolic function is normal. Right Ventricle Right ventricular chamber dimension is not well visualized. Left Atria Left atrial chamber dimension is not well visualized. Right Atria Right atrial chamber dimension is not well visualized. Aortic Valve The aortic valve is not well visualized. There is no aortic valve stenosis. Pulmonic Valve The pulmonic valve is not well visualized. Mitral Valve The mitral valve has not well visualized. Tricuspid Valve The tricuspid valve leaflets are not well visualized. Pericardium/Pleural The pericardium appears normal. Left Ventricular Outflow Tract Name Value Normal LVOT Doppler LVOT Peak Velocity 76.41 cm/s LVOT Peak Gradient 2 mmHg LVOT Mean Gradient 1 mmHg LVOT VTI 12.48 cm LVOT VTI/AV VTI Ratio 0.65 Mitral Valve Name Value Normal MV Doppler MV Decel Reynolds 576.23 cm/s2 MV PHT 0 s MV Area (PHT) 5.77 cm2 4.00-5.00 MV Diastolic Function MV E Peak Velocity 75.80 cm/s MV A Peak Velocity 86.08 cm/s MV E/A 0.88 MV Decel Time 0 s MV A Wave Duration 0 s MV Annular TDI MV Septal e' Velocity 7.50 cm/s >=8.00 MV E/e' (Sept
[2020-08-20] MEDS: INSULIN ASPART (*BKC) 100 UNITS/ML SUB-Q ×4 (00:36→17:39)
[2020-08-20 01:07] LABS: Glucose Point of Care 293 (65-105)
[2020-08-20] MEDS: ALBUTEROL SULFATE NEB 2.5 MG/0.5 ML INH 5 MG INHALATION ×2 (03:33→07:15)
[2020-08-20] MEDS: IPRATROPIUM BR 0.02% INH SOLN 0.5 MG/2.5 ML VIAL INHALATION ×2 (03:33→07:15)
[2020-08-20 03:38] LABS: Alveolar/Arterial O2 Gradient 586.9 mmHg; Base Excess ABG 3.9 mEq/l (+/-2.0); Carboxyhemoglobin 0.3 % THb (0-2.0); Fractional Inspired Oxygen 100 %; HCO3 ABG 29.8 mEq/l (22.0-26.0); Methemoglobin ABG 0.3 %THb (0-1.5); Oxygen Content ABG 15.6 %vol (16.0-22.0); Oxygen Saturation ABG 94.7 % (95.0-100.0); Oxyhemoglobin 93.5 % THb (90.0-100.0); PO2 ABG 75.1 mmHg (80.0-100.0); PO2 FiO2 Ratio Arterial Blood 0.75 %; Reduced Hemoglobin 5.9 %THb (0-5.0); Total Hemoglobin 11.8 g/dL (12.0-18.0); pH ABG 7.385 (7.350-7.450)
[2020-08-20 03:39] LABS: Device VENTILATOR; Modified Allen's Test Pass; Site Drawn LEFT RADIAL
[2020-08-20 03:40] LABS: Arterial Blood Gas PEEP 12 cmH2O; Arterial Blood Gas Tidal Volume 340 ml; Arterial Blood Gas Vent Mode CMV; Arterial Blood Gas Ventilator rate 30 /MIN
[2020-08-20] MEDS: FENTANYL 2,500MCG/NS250ML(*CRX 2,500 MCG/250 ML BAG 20 MCG IV CONT ×2 (05:23→17:41)
[2020-08-20] MEDS: PROPOFOL IV EMULSION 100 ML 3.89 MG IV CONT ×2 (05:58→08:02)
[2020-08-20] MEDS: ROCURONIUM BROMIDE 50 MG/5 ML VIAL IV PUSH (06:15)
[2020-08-20 07:37] LABS: Hematocrit 34.4 % (37.0-47.0); Hemoglobin 10.9 g/dL (12.0-15.0); Mean Corpuscular HGB Conc 31.7 g/dl (32-36); Mean Corpuscular Hemoglobin 31.1 pg (26-34); Mean Corpuscular Volume 98.3 fl (80-100); Platelet Count Result 213 k/mm3 (150-375); Red Cell Distribution Width 14.1 % (11.5-14.5); White Blood Count 10.7 K/mm3 (4.5-10.0)
[2020-08-20] MEDS: CENTRAL LINE FLUSH 10 ML IV PUSH ×3 (07:40→20:04)
--- NOTE | 2020-08-20 08:11 | PM.EVENT ---
Event Note Event Note Event Note: I was called to assess patient due to low saturations. Chest xr showed acute pneumothorax. Patient is now s/p chest tube placement. Management as per primary team.
[2020-08-20 08:14] LABS: Glucose Point of Care 324 (65-105)
[2020-08-20 08:15] LABS: D Dimer 3.59 ug/mL (<0.48)
[2020-08-20 08:16] LABS: Alanine Aminotransferase 36 U/L (4-35); Albumin Level 2.7 g/dL (3.5-5.1); Alkaline Phosphatase 73 U/L (38-126); Anion Gap 9 mmol/L (8-16); Aspartate Amino Transferase 51 U/L (14-36); Bilirubin,Total 0.5 mg/dL (0.2-1.3); Blood Urea Nitrogen 49 mg/dL (7-17); CRP 6.5 mg/dL (<1.0); Calcium 7.6 mg/dL (8.4-10.2); Carbon Dioxide 27 mmol/L (22-30); Chloride 103 mmol/L (98-107); Estimated CRCL calculation 73 ml/min; Estimated Glomerular Filt Rate > 60; Glucose 378 mg/dL (65-105); Lactate Dehydrogenase 1120 U/L (313-618); Phosphorus 5.2 mg/dL (2.5-4.5); Potassium 4.3 mmol/L (3.4-5.0); Sodium 139 mmol/L (137-145)
--- NOTE | 2020-08-20 08:16 | PM.CNGS ---
Assessment and Plan Assessment and plan (1) Pneumothorax on right: Code(s): J93.9 - Pneumothorax, unspecified Status: Acute Assessment and Plan: I reviewed the CXR in the ICU. She has a large right pneumothorax. She is currently requiring bag ventilation by the respiratory therapist and oxygen saturation is only around 70-75%. Will place chest tube emergently. Consent is inferred based on her current condition and treatment needs. (2) Acute respiratory failure with hypoxia: Code(s): J96.01 - Acute respiratory failure with hypoxia Status: Acute History of Present Illness Consult details Consult date: 08/20/20 Narrative: This is a 65 yo woman who I am asked to see emergently for right pneumothorax. She is intubated and sedated with acute respiratory failure secondary to COVID. Her vent compliance was worsening and PEEP was increased. She acutely became hypoxic and CXR this AM shows moderate-large right pneumothorax. Review of Systems Review of Systems: ROS unobtainable: Yes unobtainable due to endotracheal tube, unobtainable due to medical condition and unobtainable due to mental status PMFSH Past Medical History Medical History Diabetes Hypertension Family History Family History Father Cancer Social History Social History Smoking status: Former smoker Tobacco type: cigarettes Alcohol intake: never Substance use: former Substance use type: marijuana Other substance usage details: 30 years ago Gender identity (if verbalized by the patient): Female Spiritual care concerns: No Meds Home Medications and Allergies Home Medications Medication Instructions Recorded Confirmed Type albuterol sulfate 2 puff INHALATION Q4H 08/12/20 08/12/20 History levofloxacin 750 mg PO DAILY 08/12/20 08/12/20 History metformin 500 mg PO DAILY 08/12/20 08/12/20 History nifedipine 30 mg PO DAILY 08/12/20 08/12/20 History Allergies Allergy/AdvReac Type Severity Reaction Status Date / Time sulfamethoxazole Allergy Hives Verified 08/12/20 07:14 [From Bactrim] trimethoprim [From Bactrim] Allergy Hives Verified 08/12/20 07:14 Vital Signs Vital Signs - 24 hr 08/19/20 09:10 08/19/20 09:20 08/19/20 10:00 Temperature 37.1 C Pulse Rate 75 78 76 Respiratory Rate 30 H 30 H 30 H Blood Pressure 129/69 Pulse Oximetry 91 90 08/19/20 11:17 08/19/20 12:00 08/19/20 13:54 Temperature 37.1 C Pulse Rate 76 76 73 Respiratory Rate 30 H 30 H Blood Pressure 129/70 Pulse Oximetry 91 90 93 08/19/20 14:00 08/19/20 14:05 08/19/20 16:00 Temperature 37.0 C 37.0 C Pulse Rate 72 74 75 Respiratory Rate 30 H 30 H 25 H Blood Pressure 132/73 124/62 Pulse Oximetry 93 94 08/19/20 17:03 08/19/20 17:05 08/19/20 17:06 Temperature Pulse Rate 87 75 87 Respiratory Rate 28 H 25 H Blood Pressure Pulse Oximetry 94 08/19/20 17:23 08/19/20 17:56 08/19/20 18:00 Temperature 37.4 C Pulse Rate 87 87 82 Respiratory Rate 28 H 25 H 30 H Blood Pressure 129/64 Pulse Oximetry 95 08/19/20 20:00 08/19/20 20:39 08/19/20 20:40 Temperature 37.8 C H Pulse Rate 84 85 107 H Respiratory Rate 19 30 H Blood Pressure 136/69 Pulse Oximetry 95 93 08/19/20 22:00 08/20/20 00:00 08/20/20 00:35 Temperature 38.1 C H 38.4 C H 38.4 C H Pulse Rate 101 H 96 Respiratory Rate 25 H 28 H Blood Pressure 138/73 133/70 Pulse Oximetry 96 94 08/20/20 00:37 08/20/20 01:05 08/20/20 02:00 Temperature 38.3 C H 37.7 C H Pulse Rate 96 84 Respiratory Rate 34 H Blood Pressure 112/63 Pulse Oximetry 95 94 08/20/20 03:35 08/20/20 04:00 08/20/20 05:23 Temperature 37.4 C Pulse Rate 87 96 128 H Respiratory Rate 28 H 24 H Blood Pressure 138/68 Pulse Oximetry 93 94 08/20/20 06:00 08/07
--- NOTE | 2020-08-20 08:27 | PM.PROC ---
Procedure Note - Detailed Date of procedure: 08/20/20 Pre-op diagnosis: Right pneumothorax Post-op diagnosis: same Procedure performed: Right thoracostomy tube placement Description of procedure: Consent assumed based on emergent condition and current treatment. Time-out was done to confirm patient and procedure. Patient was placed in supine position in hospital bed. Her right chest area was prepped and draped in sterile fashion using chlorhexidine prep. A 2 cm incision was made in the right anterior axillary line using an 11 blade scalpel. Careful blunt dissection was carried out down to the 6th rib. A curved hemostat was then used to bluntly dissect directly over the 6th rib and into the 5th intercostal space. Then bluntly entered into the intercostal space and through the pleura into the pleural cavity. A gush of air was released. A 32 Albanian chest tube was then advanced cephalad and anteriorly. The chest tube was sutured in place using 0 silk suture. Vaseline gauze was then applied at the insertion site, followed by 4 x 4 gauze and silk tape. The chest tube was applied to -20 cm of water suction. Chest x-ray was ordered to confirm placement. Anesthesia: none Surgeon: Robb Marie DO Estimated blood loss (mL): 2 Drains: Yes ( 32 Albanian chest tube) Complications: No immediate complications Condition: critical Disposition: ICU
[2020-08-20] MEDS: EPOPROSTENOL SODIUM 0.5 MG VIAL 1 MG INHALATION ×3 (09:00→20:29)
[2020-08-20] MEDS: DEXAMETHASONE SOD PHOS INJ 4 MG/ML VIAL 6 MG IV PUSH (09:07)
[2020-08-20] MEDS: ENOXAPARIN 40 MG/0.4 ML SYRINGE SUB-Q ×2 (09:07→20:02)
[2020-08-20] MEDS: CHOLECALCIFEROL 1,000 UNITS TABLET 1000 UNITS PO (09:07)
[2020-08-20] MEDS: ASCORBIC ACID 500 MG TABLET 1000 MG PO (09:08)
[2020-08-20] MEDS: ZINC SULFATE 220 MG CAPSULE PO (09:08)
--- NOTE | 2020-08-20 09:12 | PC.NURSE ---
08/20/20: 0545. This nurse noticed patients oxygen demands increasing. This nurse called respiratory and RT began bagging patient. Hospitalist notified. Patient reintubated. CXR obtained. Pneumo identified. Dr Santana notified and was in house. Dr Santana placed chest tube and oxygenation improved. Electronic Industrial Controls Mechanic Dr Cosby made aware upon arrival. Family notified.
[2020-08-20] MEDS: INSULIN DETEMIR 100 UNITS/ML 15 UNITS SUB-Q (10:04)
[2020-08-20 11:53] LABS: Glucose Point of Care 316 (65-105)
--- NOTE | 2020-08-20 12:28 | WPDINTPN ---
Progress Note: A&P Assessment and Plan (1) Acute respiratory failure with hypoxia: Code(s): J96.01 - Acute respiratory failure with hypoxia Status: Acute Assessment and Plan: Acute Respiratory failure secondary to COVID-19 pneumonia CTA Chest on presentation showed ground-glass opacities Currently on mechanical ventilation with CMV with tidal volume of 340, peep of 14 and 100% FiO2. Will try to wean PEEP and FiO2 if tolerated. Low tidal volume strategies to avoid ventilator induced injury. - on 08/16/2020: patient failed BiPAP, INTUBATED for impending respiratory failure secondary to significant tachypnea and desaturation. - was started on Flolan 08/16/2020. It was weaned off but has to be restarted back on for resistant hypoxia after she developed right-sided pneumothorax. Wean Flolan if tolerated. - Completed course of Remdesivir - continue dexamethasone - 08/13 received 1 unit of convalescent plasma - Continue bronchodilators - sedated with fentanyl and Versed infusion, maintain RASS of 0 to -2, daily sedation vacation Check procalcitonin level in a.m.. Will order echocardiogram as well (2) Pneumonia due to 2019 novel coronavirus: Code(s): U07.1 - COVID-19; J12.89 - Other viral pneumonia Status: Acute Assessment and Plan: see above (3) UMER (acute kidney injury): Code(s): N17.9 - Acute kidney failure, unspecified Status: Acute Assessment and Plan: acute kidney injury most likely related to hypoxia - Acute kidney injury has resolved now. - continue monitor urine output, renal function and electrolytes (4) Hypertension: Qualifiers: Hypertension type: essential hypertension Qualified Code(s): I10 - Essential (primary) hypertension Code(s): I10 - Essential (primary) hypertension Status: Acute Assessment and Plan: hydralazine p.r.n. (5) Diabetes: Qualifiers: Diabetes mellitus type: type 2 Diabetes mellitus termite exterminator helper insulin use: without termite exterminator helper use Diabetes mellitus complication status: without complication Qualified Code(s): E11.9 - Type 2 diabetes mellitus without complications Code(s): E11.9 - Type 2 diabetes mellitus without complications Status: Acute Assessment and Plan: continue Accu-Cheks and sliding scale insulin - hyperglycemic likely secondary to dexamethasone - increase Levemir from 15 units to 18 units. (6) DVT prophylaxis: Code(s): Z29.9 - Encounter for prophylactic measures, unspecified Status: Acute Assessment and Plan: continue Lovenox 40 mg subcu q.12 hours (7) Dietary counseling and surveillance: Code(s): Z71.3 - Dietary counseling and surveillance Status: Acute Assessment and Plan: patient was started on tube feeds on 08/17/2020, advance as tolerated to goal Additional Plan discussed with MOHAN Sutton, updated her with patient's condition and plan of care. I answered all questions. she wanted other family members a conference call on 08/19/2020 Code Status - Full code Total Critical Care Time : 33 minutes Due to a high probability of clinically significant, life threatening deterioration, the patient required my highest level of preparedness to intervene emergently and I personally spent this critical care time directly and personally managing the patient. This critical care time included obtaining a history; examining the patient; pulse oximetry; ordering and review of studies; arranging urgent treatment with development of a management plan; evaluation of patient's response to treatment; frequent reassessment; and discussions with other providers. It was exclusive of separately billable procedures and treating other patients and teaching time. Please see Assessment and Plan section and the rest of the note for further information on patient assessment and treatment Subjective Naseem
[2020-08-20] MEDS: PROPOFOL IV EMULSION 100 ML 7.78 MG IV CONT (14:13)
--- NOTE | 2020-08-20 15:27 | PM.IMPN ---
Progress Note: A&P Assessment and Plan (1) Pneumonia due to 2019 novel coronavirus: Code(s): U07.1 - COVID-19; J12.89 - Other viral pneumonia Status: Acute (2) Hypoxia: Code(s): R09.02 - Hypoxemia Status: Acute Assessment and Plan: As above likely due to COVID 19 PNA. (3) Hypertension: Qualifiers: Hypertension type: essential hypertension Qualified Code(s): I10 - Essential (primary) hypertension Code(s): I10 - Essential (primary) hypertension Status: Acute (4) Diabetes: Qualifiers: Diabetes mellitus type: type 2 Diabetes mellitus residential insulin use: without residential use Diabetes mellitus complication status: without complication Qualified Code(s): E11.9 - Type 2 diabetes mellitus without complications Code(s): E11.9 - Type 2 diabetes mellitus without complications Status: Acute (5) UMER (acute kidney injury): Code(s): N17.9 - Acute kidney failure, unspecified Status: Acute Additional Plan # COVID-19 pneumonia - diagnosed early first week of 08/2020 [facility] and treated with full course of dexamethasone - s/p remdesivir completed 08/16, dexamethasone 08/12- - 1 dose of convalescent plasma on 08/13 - CTA chest showed diffuse ground-glass capacity, no PE - nebulizer: Albuterol and atrovent - supplements: Vitamin-C, vitamin-D, zinc - Lovenox 40 mg b.i.d. COVID-19 - Tylenol for fever - inflammatory markers elevated, trending Q 48 hours - intubated 08/16- CMV mode 80% FiO2, peep 12 - completed 24 hours of Flolan 08/16-08/17, restarted 08/20/2020 - sedated: Fentanyl, versed, propofol - steam box operator consulted for management # Right-sided pneumothorax secondary to ventilator associated barotrauma - status post chest tubes 08/20/[address] Robb Marie - chest tube air leak # UMER, resolved - acute in kidney injury resolved, may have been pre renal azotemia #type 2 diabetes - Hold metformin - Hgb a1c 7.4 - hyperglycemia from dexamethasone, continue moderate dose sliding scale insulin aspart and Levemir 18u # other chronic conditions - Hypertension: stopped nifedipine Diet: Tube feeds DVT prophylaxis: Lovenox 40 mg b.i.d. COVID-19 GI stress prophylaxis: Protonix Code status: Full code Disposition: ICU Subjective Date/time seen: 08/20/20 15:27 Patient examined. Overnight she developed pneumothorax and now status post chest tube right side by Dr. Robb Marie. discussed with steam box operator. She has been restarted on Flolan. sedation is fentanyl, Versed, propofol. she is currently mechanical ventilation CMV tidal volume 340, peep 14, 100% FiO2. Review of Systems Review of Systems: ROS unobtainable: Yes unobtainable due to endotracheal tube Exam Narrative: Exam Narrative: - GENERAL: Ill-appearing obese woman intubated sedated - HENT: ET tube in place , OG tube in place - LUNGS: diminished lung sounds intubated , right chest tube - CARDIOVASCULAR: Regular rate and rhythm. No murmur. No JVD. - ABDOMEN: hypoactive bowel sounds. obese - : Somers in place, clear yellow urine - EXTREMITIES: No edema. Peripheral pulses 2+. midline RUE - NEUROLOGIC: unable to evaluate intubated sedated - PSYCHIATRIC: unable to evaluate intubated sedated Objective Data Vital Signs Vital Signs: Vital Signs - 24 hr 08/19/20 16:00 08/19/20 17:03 08/19/20 17:05 Temperature 37.0 C Pulse Rate 75 87 75 Respiratory Rate 25 H 28 H Blood Pressure 124/62 Pulse Oximetry 94 94 08/19/20 17:06 08/19/20 17:23 08/19/20 17:56 Temperature Pulse Rate 87 87 87 Respiratory Rate 25 H 28 H 25 H Blood Pressure Pulse Oximetry 08/19/20 18:00 08/19/20 20:00 08/19/20 20:39 Temperature 37.4 C 37.8 C H Pulse Rate 82 84 85 Respiratory Rate 30 H 19 30 H Blood Pressure 129/64 136/69 Pulse Oximetry 95 95 08/19/20 20:40 08/19/20 22:00 08/20/20 00:00 Temperature 38.1 C H 38.4 C H Pulse R
[2020-08-20 20:37] LABS: Glucose Point of Care 360 (65-105)
[2020-08-20] MEDS: INSULIN DETEMIR 100 UNITS/ML 18 UNITS SUB-Q (21:05)
[2020-08-20] MEDS: PROPOFOL IV EMULSION 100 ML 19.46 MG IV CONT (21:06)
[2020-08-20 23:40] LABS: Alveolar/Arterial O2 Gradient 624.8 mmHg; Base Excess ABG 5.6 mEq/l (+/-2.0); Carboxyhemoglobin 0.2 % THb (0-2.0); Fractional Inspired Oxygen 100 %; Methemoglobin ABG 0.2 %THb (0-1.5); Oxygen Content ABG 10.8 %vol (16.0-22.0); Oxyhemoglobin 62.7 % THb (90.0-100.0); PCO2 ABG 55.4 mmHg (35.0-45.0); PO2 FiO2 Ratio Arterial Blood 0.33 %; Reduced Hemoglobin 36.9 %THb (0-5.0); Total Hemoglobin 12.3 g/dL (12.0-18.0)
[2020-08-20 23:42] LABS: Device VENTILATOR; Modified Allen's Test Unable to perform; Oxygen Saturation ABG 60.5 % (95.0-100.0); PO2 ABG 32.8 mmHg (80.0-100.0); Site Drawn LEFT RADIAL
[2020-08-20 23:43] LABS: Arterial Blood Gas Vent Mode CMV; Arterial Blood Gas Ventilator rate 30 /MIN
[2020-08-20 23:44] LABS: Arterial Blood Gas PEEP 10 cmH2O; Arterial Blood Gas Tidal Volume 340 ml
--- NOTE | 2020-08-20 23:49 | PC.NURSE ---
this patient started to have decreased oxygen saturation. respiratory therapy was in the room with patient when nurse noticed. nurse came into room and rt immediately started providing 100% oxygen to patient with bag valve mask. cxr and abg obtained stat. hospitalist and cracker dough mixer notified. sugar house supervisor made aware. patient currently has chest tube in place with no evidence of air leak. lung sounds are coarse but heard anterior throughout. patient remains on flolan and sedation medication. tube feeds placed on hold at this time. 2354 patient continues to be provided 100% oxygen with bag valve mask at this time with oxygen saturations at 72%-this is after continuous bagging for 20minutes. family made aware of patient condition at this time. rescue cath attempted by rt with no mucous plugs present 0000 patient continues to be provided 100% oxygen with bag valve mask and oxygen saturation at 64%. this nurse, Hayde RN, and Chayito RT remain at patient bedside. 0005 patient started on paralytic 0015 patient continues to be provided 100% oxygen via bag valve mask and oxygen saturation at this time 65% 0050 patients oxygen saturation up to 90% via bag valve mask. patient will be placed back on ventilator at this time 0054 patient on ventilator tv 340, peep 10, rate 24, fio2 100%: patients oxygen saturation currently 93% 0055 family updated
[2020-08-21] VITALS (36 sets, daily range): BP systolic 93–148; BP diastolic 56–99; PULSE 69–109; RESP 30–71; TEMP 36.7–39.1; O2SAT 66–96
[2020-08-21] MEDS: CISATRACURIUM BESYLATE 20 MG/10 ML VIAL 19.6 MG IV PUSH (00:05)
[2020-08-21] MEDS: PROPOFOL IV EMULSION 100 ML 27.24 MG IV CONT ×2 (00:38→14:21)
[2020-08-21] MEDS: INSULIN ASPART (*BKC) 100 UNITS/ML SUB-Q ×3 (01:19→11:20)
[2020-08-21 01:33] LABS: Glucose Point of Care 270 (65-105)
--- NOTE | 2020-08-21 01:49 | PC.NURSE ---
0115 this nurse noticed patients oxygen levels decreasing so came into the room. patient had to be provided 100% oxygen with bag valve mask. 0150 patient continues to be provided 100% oxygen with bag valve mask and oxygen saturation at 87%. ABG obtained by RT at this time 0225 patients oxygen saturation at 82% patient placed back on ventilator with liliam Aparicio RT and Chayito RT at bedside
[2020-08-21 01:55] LABS: Alveolar/Arterial O2 Gradient 629.3 mmHg; Base Excess ABG 4.7 mEq/l (+/-2.0); Carboxyhemoglobin 0.3 % THb (0-2.0); Fractional Inspired Oxygen 100 %; HCO3 ABG 28.3 mEq/l (22.0-26.0); Methemoglobin ABG 0.2 %THb (0-1.5); Oxygen Content ABG 14.7 %vol (16.0-22.0); Oxyhemoglobin 85.3 % THb (90.0-100.0); PCO2 ABG 38.3 mmHg (35.0-45.0); PO2 ABG 45.4 mmHg (80.0-100.0); PO2 FiO2 Ratio Arterial Blood 0.45 %; Reduced Hemoglobin 14.2 %THb (0-5.0); Total Hemoglobin 12.3 g/dL (12.0-18.0); pH ABG 7.487 (7.350-7.450)
[2020-08-21 01:56] LABS: Device AMBU BAG; Modified Allen's Test Unable to perform; Oxygen Saturation ABG 84.9 % (95.0-100.0); Site Drawn RIGHT RADIAL
[2020-08-21] MEDS: PROPOFOL IV EMULSION 100 ML 35.02 MG IV CONT ×2 (03:17→06:08)
--- NOTE | 2020-08-21 03:33 | P.PNCROSS_ITS ---
Event Note Event Note Event Note: Called by nursing staff who verbalized to me that our Coater [employer] Insulation Board has asked that I attempt to transfer this 65 year old patient to a tertiary care center for possible ECMO therapy. I have called and discussed the case with [facility] graves registration specialist who confirms to me that she is not a candidate for ECMO given that her BMI is greater than 40. [facility] transfer line also alerted me that they do not have any ICU beds available.
[2020-08-21] MEDS: ROCURONIUM BROMIDE 50 MG/5 ML VIAL IV PUSH (04:16)
[2020-08-21] MEDS: EPOPROSTENOL SODIUM 0.5 MG VIAL 1 MG INHALATION ×4 (05:19→23:27)
[2020-08-21 05:38] LABS: Alveolar/Arterial O2 Gradient 562.7 mmHg; Carboxyhemoglobin 0.3 % THb (0-2.0); Fractional Inspired Oxygen 100 %; HCO3 ABG 34.3 mEq/l (22.0-26.0); Methemoglobin ABG 0.4 %THb (0-1.5); Oxygen Content ABG 15.6 %vol (16.0-22.0); Oxygen Saturation ABG 91.5 % (95.0-100.0); Oxyhemoglobin 90.7 % THb (90.0-100.0); PO2 ABG 72.3 mmHg (80.0-100.0); PO2 FiO2 Ratio Arterial Blood 0.72 %; Reduced Hemoglobin 8.6 %THb (0-5.0); Total Hemoglobin 12.2 g/dL (12.0-18.0)
[2020-08-21 05:39] LABS: Device VENTILATOR; Modified Allen's Test Pass; Site Drawn RIGHT RADIAL; pH ABG 7.261 (7.350-7.450)
[2020-08-21 05:40] LABS: Arterial Blood Gas PEEP 10 cmH2O; Arterial Blood Gas Tidal Volume 340 ml; Arterial Blood Gas Vent Mode CMV; Arterial Blood Gas Ventilator rate 30 /MIN
[2020-08-21] MEDS: FENTANYL 2,500MCG/NS250ML(*CRX 2,500 MCG/250 ML BAG 20 MCG IV CONT ×2 (06:06→18:32)
[2020-08-21] MEDS: CENTRAL LINE FLUSH 10 ML IV PUSH ×3 (06:08→20:42)
[2020-08-21 07:21] LABS: Glucose Point of Care 237 (65-105)
[2020-08-21 07:59] LABS: Alanine Aminotransferase 37 U/L (4-35); Albumin Level 2.7 g/dL (3.5-5.1); Alkaline Phosphatase 60 U/L (38-126); Anion Gap 6 mmol/L (8-16); Aspartate Amino Transferase 42 U/L (14-36); Bilirubin,Total 0.3 mg/dL (0.2-1.3); Blood Urea Nitrogen 42 mg/dL (7-17); Calcium 7.6 mg/dL (8.4-10.2); Carbon Dioxide 31 mmol/L (22-30); Chloride 102 mmol/L (98-107); Estimated CRCL calculation 53 ml/min; Estimated Glomerular Filt Rate > 60; Glucose 311 mg/dL (65-105); Potassium 4.6 mmol/L (3.4-5.0); Sodium 139 mmol/L (137-145)
[2020-08-21] MEDS: DEXAMETHASONE SOD PHOS INJ 4 MG/ML VIAL 6 MG IV PUSH (08:52)
[2020-08-21] MEDS: ENOXAPARIN 40 MG/0.4 ML SYRINGE SUB-Q ×2 (08:53→20:40)
[2020-08-21] MEDS: ZINC SULFATE 220 MG CAPSULE PO (08:53)
[2020-08-21] MEDS: CHOLECALCIFEROL 1,000 UNITS TABLET 1000 UNITS PO (08:53)
[2020-08-21] MEDS: ASCORBIC ACID 500 MG TABLET 1000 MG PO (08:53)
[2020-08-21] MEDS: INSULIN DETEMIR 100 UNITS/ML 18 UNITS SUB-Q (08:55)
[2020-08-21] MEDS: PROPOFOL IV EMULSION 100 ML 31.13 MG IV CONT ×2 (08:56→12:12)
[2020-08-21 12:08] LABS: Glucose Point of Care 320 (65-105)
--- NOTE | 2020-08-21 14:01 | P.PNINT_ITS ---
Progress Note: A&P Assessment and Plan (1) Pneumonia due to 2019 novel coronavirus: Code(s): U07.1 - COVID-19; J12.89 - Other viral pneumonia Status: Acute Assessment and Plan: * cont vanco and cefeime on 08/21 * CTA chest showed diffuse ground-glass capacity, no PE (2) Hypoxia: Code(s): R09.02 - Hypoxemia Status: Acute Assessment and Plan: * As above likely due to COVID 19 PNA. (3) Hypertension: Qualifiers: Hypertension type: essential hypertension Qualified Code(s): I10 - Essential (primary) hypertension Code(s): I10 - Essential (primary) hypertension Status: Acute Assessment and Plan: * bp 114/70 * (4) Diabetes: Qualifiers: Diabetes mellitus type: type 2 Diabetes mellitus intermodal dispatcher insulin use: without intermodal dispatcher use Diabetes mellitus complication status: without complication Qualified Code(s): E11.9 - Type 2 diabetes mellitus without complications Code(s): E11.9 - Type 2 diabetes mellitus without complications Status: Acute Assessment and Plan: * elevated secondary to use of dexamethasone * Hgb a1c 7.4 * bs 237 then 320 increase detemir to 20 u Q12 hr and sliding scale changed to high * detemir 18 units unit Q12 hr * will continue to monitor and adjust as needed (5) UMER (acute kidney injury): Code(s): N17.9 - Acute kidney failure, unspecified Status: Acute Assessment and Plan: * improving BUN 42 and CR wnl possible pre renal azotemia (6) COVID-19: Code(s): U07.1 - COVID-19 Status: Acute Assessment and Plan: * cxr indicated Stable diffuse lung disease, consistent with pneumonia and/or pulmonary edema and/or acute respiratory distress syndrome (ARDS). * Currently on mechanical ventilation with CMV with tidal volume of 340, peep of 10 and 100% FiO2. * on 08/16/2020: patient failed BiPAP, INTUBATED for impending respiratory failure secondary to significant tachypnea and desaturation. * was started on Flolan 08/16/2020. It was weaned off but has to be restarted back on for resistant hypoxia after she developed right-sided pneumo thorax. Wean Flolan if tolerated. * Completed course of Remdesivir * continue dexamethasone 910 doses * 08/13 received 1 unit of convalescent plasma * Continue bronchodilators (7) Pneumothorax on right: Code(s): J93.9 - Pneumothorax, unspecified Status: Acute Assessment and Plan: * secondary to ventilator associated barotrauma * status post chest tubes 08/20/[address] Robb Marie * chest tube air leak * not a candidate for ECMO due to BMI >40 . called made to [facility] would not except patient patient condition unstable Additional Plan Diet: Tube feeds DVT prophylaxis: Lovenox 40 mg b.i.d. COVID-19 GI stress prophylaxis: Protonix Code status: Full code Disposition: ICU Subjective Date/time seen: 08/21/20 14:01 Patient intubated and sedated. On a PEEP of 10 with FiO2 of 100% Fentayl 200 and Versed 6 propofol 40 mcg. nimbex 58.82 Interval history: David is a 65 year old female with history of recently diagnosed HTN and Diabetes who was just discharged from [facility] where she was admitted with COVID 19 PNA - COVID-19 on 08/13/2020 - intubated on 08/16/2020 Review of Systems Review of Systems: All systems reviewed & are unremarkable except as noted in HPI and below ROS unobtainable: Yes unobtainable due to endotracheal tube
--- NOTE | 2020-08-21 14:01 | WPDINTPN ---
Progress Note: A&P Assessment and Plan (1) Pneumonia due to 2019 novel coronavirus: Code(s): U07.1 - COVID-19; J12.89 - Other viral pneumonia Status: Acute Assessment and Plan: cont vanco and cefeime on 08/21 CTA chest showed diffuse ground-glass capacity, no PE (2) Hypoxia: Code(s): R09.02 - Hypoxemia Status: Acute Assessment and Plan: As above likely due to COVID 19 PNA. (3) Hypertension: Qualifiers: Hypertension type: essential hypertension Qualified Code(s): I10 - Essential (primary) hypertension Code(s): I10 - Essential (primary) hypertension Status: Acute Assessment and Plan: bp 114/70 (4) Diabetes: Qualifiers: Diabetes mellitus type: type 2 Diabetes mellitus fci insulin use: without fci use Diabetes mellitus complication status: without complication Qualified Code(s): E11.9 - Type 2 diabetes mellitus without complications Code(s): E11.9 - Type 2 diabetes mellitus without complications Status: Acute Assessment and Plan: elevated secondary to use of dexamethasone Hgb a1c 7.4 bs 237 then 320 increase detemir to 20 u Q12 hr and sliding scale changed to high detemir 18 units unit Q12 hr will continue to monitor and adjust as needed (5) UMER (acute kidney injury): Code(s): N17.9 - Acute kidney failure, unspecified Status: Acute Assessment and Plan: improving BUN 42 and CR wnl possible pre renal azotemia (6) COVID-19: Code(s): U07.1 - COVID-19 Status: Acute Assessment and Plan: cxr indicated Stable diffuse lung disease, consistent with pneumonia and/or pulmonary edema and/or acute respiratory distress syndrome (ARDS). Currently on mechanical ventilation with CMV with tidal volume of 340, peep of 10 and 100% FiO2. on 08/16/2020: patient failed BiPAP, INTUBATED for impending respiratory failure secondary to significant tachypnea and desaturation. was started on Flolan 08/16/2020. It was weaned off but has to be restarted back on for resistant hypoxia after she developed right-sided pneumothorax. Wean Flolan if tolerated. Completed course of Remdesivir continue dexamethasone 06/16 doses 08/13 received 1 unit of convalescent plasma Continue bronchodilators (7) Pneumothorax on right: Code(s): J93.9 - Pneumothorax, unspecified Status: Acute Assessment and Plan: secondary to ventilator associated barotrauma status post chest tubes 08/20/[address] Robb Marie chest tube air leak not a candidate for ECMO due to BMI >40 . called made to [facility] would not except patient patient condition unstable Additional Plan Diet: Tube feeds DVT prophylaxis: Lovenox 40 mg b.i.d. COVID-19 GI stress prophylaxis: Protonix Code status: Full code Disposition: ICU Subjective Date/time seen: 08/21/20 14:01 Patient intubated and sedated. On a PEEP of 10 with FiO2 of 100% Fentayl 200 and Versed 6 propofol 40 mcg. nimbex 58.82 Interval history: David is a 65 year old female with history of recently diagnosed HTN and Diabetes who was just discharged from [facility] where she was admitted with COVID 19 PNA - COVID-19 on 08/13/2020 - intubated on 08/16/2020 Review of Systems Review of Systems: All systems reviewed & are unremarkable except as noted in HPI and below ROS unobtainable: Yes unobtainable due to endotracheal tube Exam Narrative: Exam Narrative: - GENERAL: Ill-appearing obese woman intubated sedated - HENT: ET tube in place , OG tube in place - LUNGS: diminished lung sounds intubated , right chest tube - CARDIOVASCULAR: Regular rate and rhythm. No murmur. No JVD. - ABDOMEN: hypoactive bowel sounds. obese - : Somers in place, clear yellow urine - EXTREMITIES: No edema. Peripheral pulses 2+. midline RUE - NEUROLOGIC: unable to evaluate intubated sedated - PSYCHIATRIC: u
--- NOTE | 2020-08-21 14:16 | PM.IMPN ---
Progress Note: A&P Assessment and Plan (1) Pneumonia due to 2019 novel coronavirus: Code(s): U07.1 - COVID-19; J12.89 - Other viral pneumonia Status: Acute (2) Hypoxia: Code(s): R09.02 - Hypoxemia Status: Acute Assessment and Plan: As above likely due to COVID 19 PNA. (3) Hypertension: Qualifiers: Hypertension type: essential hypertension Qualified Code(s): I10 - Essential (primary) hypertension Code(s): I10 - Essential (primary) hypertension Status: Acute (4) Diabetes: Qualifiers: Diabetes mellitus type: type 2 Diabetes mellitus nursing home insulin use: without nursing home use Diabetes mellitus complication status: without complication Qualified Code(s): E11.9 - Type 2 diabetes mellitus without complications Code(s): E11.9 - Type 2 diabetes mellitus without complications Status: Acute (5) UMER (acute kidney injury): Code(s): N17.9 - Acute kidney failure, unspecified Status: Acute Additional Plan # COVID-19 pneumonia - diagnosed early first week of 08/2020 [facility] and treated with full course of dexamethasone - s/p remdesivir completed 08/16, dexamethasone 08/12- - 1 dose of convalescent plasma on 08/13 - CTA chest showed diffuse ground-glass capacity, no PE - nebulizer: Albuterol and atrovent - supplements: Vitamin-C, vitamin-D, zinc - Lovenox 40 mg b.i.d. COVID-19 - Tylenol for fever - inflammatory markers elevated, trending Q 48 hours - intubated 08/16- CMV mode 100% FiO2, peep 10 - completed 24 hours of Flolan 08/16-08/17, 08/20- - sedated: Fentanyl, versed, propofol - paralytic: Nimbex 08/21- - parts sales counterperson consulted for management -antibiotics: Started vanc/cefepime 08/21 # Right-sided pneumothorax secondary to ventilator associated barotrauma - status post chest tubes 08/20/[address] Robb Marie - chest tube air leak # UMER, resolved - acute in kidney injury resolved, may have been pre renal azotemia #type 2 diabetes - Hold metformin - Hgb a1c 7.4 - hyperglycemia from dexamethasone, continue moderate dose sliding scale insulin aspart and Levemir 22u q12hr # other chronic conditions - Hypertension: stopped nifedipine Diet: Tube feeds DVT prophylaxis: Lovenox 40 mg b.i.d. COVID-19 GI stress prophylaxis: Protonix Code status: Full code Disposition: ICU Social: Title 1 Tutor talk to family about goals of care 08/21 as patient is deteriorating while on max ventilator support Subjective Date/time seen: 08/21/20 14:16 Patient examined. Patient is deteriorating. s/p chest tube placed 08/20 for pneumothorax from ventilator induced barotrauma. She is 100% FiO2 and PEEP 10 on Flolan and now paralyzed with O2 saturations in 84%. Broad-spectrum antibiotics vancomycin and cefepime started. She is not a candidate for ECMO because of her BMI and she would be too unsteady to transfer. Title 1 Tutor to talk to family about goals of care as patient is deteriorating. Review of Systems Review of Systems: ROS unobtainable: Yes unobtainable due to endotracheal tube Exam Narrative: Exam Narrative: - GENERAL: Ill-appearing obese woman intubated sedated paralyzed - HENT: ET tube in place , OG tube in place - LUNGS: diminished lung sounds intubated , right chest tube - CARDIOVASCULAR: Regular rate and rhythm. No murmur. No JVD. - ABDOMEN: hypoactive bowel sounds. obese - : Somers in place, clear yellow urine - EXTREMITIES: No edema. Peripheral pulses 2+. midline RUE - NEUROLOGIC: unable to evaluate intubated sedated paralyzed - PSYCHIATRIC: unable to evaluate intubated sedated paralyzed Objective Data Vital Signs Vital Signs: Vital Signs - 24 hr 08/20/20 14:50 08/20/20 14:53 08/20/20 16:00 Temperature 37.2 C Pulse Rate 85 85 86 Respiratory Rate 34 H 26 H Blood Pressure 124/66 Pulse Oximetry 92 92 90 08/20/20 16:50 08/20/20 17:41 08/20/20 17:43 Temperature 37.2 C Pulse Rat
[2020-08-21] MEDS: PROPOFOL IV EMULSION 100 ML 23.35 MG IV CONT (17:43)
[2020-08-21] MEDS: INSULIN ASPART (*BKC) 100 UNITS/ML 15 UNITS SUB-Q (18:32)
[2020-08-21 19:21] LABS: Glucose Point of Care 477 (65-105)
--- NOTE | 2020-08-21 19:28 | PC.NURSE ---
1410- Patient began to desaturate to 81% after respiratory therapy changed filter on the ventilator and took about 1 hour for sats to improve to 85% 1535- Patient began desaturating to 77%, Myself, Lori RN, Kristina RN, Debbie RTT and Keli RTT at bedside bagging patient to attempt to improve saturations, patient initially desaturated down to 60% with bagging and would bounce between 65-78% while bagging. Patient turned to right side in attempt to improve saturations with minimal improvement. After about 35 minutes patient sats trevin to 85%, attempted to place patient back on the ventilator with immediate desaturations. Patient was once again bagged and eventually improved with quick shallow breaths via ambu bag. After approximately 1 hour of bagging patient was able to be placed back on the ventilator with adjustments to the ventilator increasing PEEP and respiratory rate with decrease in tidal volume. Dr. Cosby made aware of event and ventilator changes.
[2020-08-21] MEDS: INSULIN DETEMIR 100 UNITS/ML 20 UNITS SUB-Q (20:39)
[2020-08-22] VITALS (40 sets, daily range): BP systolic 89–125; BP diastolic 52–78; PULSE 62–102; RESP 17–50; TEMP 36.2–37.3; O2SAT 90–96
[2020-08-22] MEDS: INSULIN ASPART (*BKC) 100 UNITS/ML SUB-Q ×4 (00:51→23:46)
[2020-08-22 01:25] LABS: Glucose Point of Care 395 (65-105)
[2020-08-22 04:36] LABS: Hematocrit 32.9 % (37.0-47.0); Hemoglobin 10.1 g/dL (12.0-15.0); Mean Corpuscular HGB Conc 30.7 g/dl (32-36); Mean Corpuscular Hemoglobin 30.3 pg (26-34); Mean Corpuscular Volume 98.8 fl (80-100); Mean Platelet Volume 10.4 fl (7.4-10.4); Platelet Count Result 184 k/mm3 (150-375); Red Blood Count 3.33 M/mm3 (4.2-5.4); Red Cell Distribution Width 13.9 % (11.5-14.5); White Blood Count 10.4 K/mm3 (4.5-10.0)
[2020-08-22] MEDS: PROPOFOL IV EMULSION 100 ML 23.35 MG IV CONT ×2 (04:43)
[2020-08-22 04:56] LABS: D Dimer 3.71 ug/mL (<0.48)
[2020-08-22 05:08] LABS: Estimated CRCL calculation 62 ml/min; Estimated Glomerular Filt Rate 60; Lactate Dehydrogenase 785 U/L (313-618)
[2020-08-22] MEDS: EPOPROSTENOL SODIUM 0.5 MG VIAL 1 MG INHALATION ×2 (05:26→12:00)
[2020-08-22 05:44] LABS: Anion Gap 5 mmol/L (8-16); Blood Urea Nitrogen 55 mg/dL (7-17); Carbon Dioxide 34 mmol/L (22-30); Chloride 100 mmol/L (98-107); Estimated CRCL calculation 62 ml/min; Estimated Glomerular Filt Rate 60; Glucose 326 mg/dL (65-105); Magnesium 3.3 mg/dL (1.6-2.3); Phosphorus 5.8 mg/dL (2.5-4.5); Sodium 139 mmol/L (137-145)
[2020-08-22 05:47] LABS: CRP 30.1 mg/dL (<1.0)
[2020-08-22 06:02] LABS: Alveolar/Arterial O2 Gradient 507.9 mmHg; Base Excess ABG 2.7 mEq/l (+/-2.0); Carboxyhemoglobin 0.3 % THb (0-2.0); Fractional Inspired Oxygen 100 %; HCO3 ABG 30.1 mEq/l (22.0-26.0); Methemoglobin ABG 0.2 %THb (0-1.5); Oxygen Content ABG 15.1 %vol (16.0-22.0); Oxygen Saturation ABG 98.6 % (95.0-100.0); Oxyhemoglobin 97.7 % THb (90.0-100.0); PO2 ABG 144.1 mmHg (80.0-100.0); PO2 FiO2 Ratio Arterial Blood 1.44 %; Reduced Hemoglobin 1.8 %THb (0-5.0); Total Hemoglobin 10.8 g/dL (12.0-18.0); pH ABG 7.311 (7.350-7.450)
[2020-08-22 06:06] LABS: Arterial Blood Gas PEEP 13 cmH2O; Arterial Blood Gas Vent Mode ASSIST CONTROL; Arterial Blood Gas Ventilator rate 50 /MIN; Device VENTILATOR; Modified Allen's Test Pass; Site Drawn RIGHT RADIAL
[2020-08-22 06:07] LABS: Arterial Blood Gas Tidal Volume 290 ml
[2020-08-22] MEDS: CENTRAL LINE FLUSH 10 ML IV PUSH ×3 (06:58→20:58)
[2020-08-22] MEDS: FENTANYL 2,500MCG/NS250ML(*CRX 2,500 MCG/250 ML BAG 20 MCG IV CONT ×2 (06:59→20:00)
[2020-08-22] MEDS: PROPOFOL IV EMULSION 100 ML 15.56 MG IV CONT ×3 (09:39→23:03)
[2020-08-22] MEDS: ENOXAPARIN 40 MG/0.4 ML SYRINGE SUB-Q ×2 (09:40→19:58)
[2020-08-22] MEDS: DEXAMETHASONE SOD PHOS INJ 4 MG/ML VIAL 6 MG IV PUSH (09:41)
[2020-08-22] MEDS: ZINC SULFATE 220 MG CAPSULE PO (09:41)
[2020-08-22] MEDS: CHOLECALCIFEROL 1,000 UNITS TABLET 1000 UNITS PO (09:41)
[2020-08-22] MEDS: ASCORBIC ACID 500 MG TABLET 1000 MG PO (09:41)
[2020-08-22] MEDS: INSULIN DETEMIR 100 UNITS/ML 28 UNITS SUB-Q ×2 (11:11→20:00)
[2020-08-22 12:13] LABS: Glucose Point of Care 199 (65-105)
--- NOTE | 2020-08-22 12:39 | PCDIET ---
ICU Rounding Note: Tube feedings on hold due to medical condition. RN reports patient easily desaturates with movement/positioning. Once able to resume tube feedings, recommend change to Glucerna 1.2 for improved glucose control. Would also consider medication to promote BM, if medically appropriate. Last recorded weight is 138kg which is increased from last review. Bowel Motility: Last documented BM on 08/10/20. Labs Reviewed: Hgb (10.1), Hct (32.9), Glu (326), BUN (55), Cr (1.1), PO4 (5.8) Meds Noted: Albuterol, Vitamin C, Cefepime, Nimbex, Flolan, Hydralazine, Novolog, Levemir, Atrovent, Versed, Propofol (rate of 23.35mL/hr provides 616kcal per day), Vancomycin, Vitamin D, Zinc Sulfate Additional Notes: No documented skin breakdown. Following daily in ICU rounds. Assessing/reassessing every Saturday/Saturday.
--- NOTE | 2020-08-22 14:58 | WPDINTPN ---
Progress Note: A&P Assessment and Plan (1) Acute respiratory failure with hypoxia: Code(s): J96.01 - Acute respiratory failure with hypoxia Status: Acute Assessment and Plan: Acute Respiratory failure secondary to COVID-19 pneumonia - on 08/16/2020: patient failed BiPAP, INTUBATED for impending respiratory failure secondary to significant tachypnea and desaturation. - was started on Flolan 08/16/2020. It was weaned off but has to be restarted back on for resistant hypoxia after she developed right-sided pneumothorax. Wean Flolan if tolerated. - Completed course of Remdesivir - completed course of dexamethasone - 08/13 received 1 unit of convalescent plasma - Continue bronchodilators - sedated with fentanyl and Versed infusion. neuromuscular blockade with Nimbex was added - patient is on CMV mode of ventilation, tidal volume 290ml, Rate of 50, peep of 13 , FiO2 of 100%. patient's respiratory rate is significantly elevated not giving her time for expiration. Will wean respiratory rate to 34, increase tidal volume to 330 which will be 6 mL/kilogram Will order echocardiogram as well (2) Pneumonia due to 2019 novel coronavirus: Code(s): U07.1 - COVID-19; J12.89 - Other viral pneumonia Status: Acute Assessment and Plan: see above (3) UMER (acute kidney injury): Code(s): N17.9 - Acute kidney failure, unspecified Status: Acute Assessment and Plan: acute kidney injury most likely related to hypoxia - Acute kidney injury has resolved now. - continue monitor urine output, renal function and electrolytes (4) Hypertension: Qualifiers: Hypertension type: essential hypertension Qualified Code(s): I10 - Essential (primary) hypertension Code(s): I10 - Essential (primary) hypertension Status: Acute Assessment and Plan: hydralazine p.r.n. (5) Diabetes: Qualifiers: Diabetes mellitus type: type 2 Diabetes mellitus nursing home insulin use: without rodent exterminator use Diabetes mellitus complication status: without complication Qualified Code(s): E11.9 - Type 2 diabetes mellitus without complications Code(s): E11.9 - Type 2 diabetes mellitus without complications Status: Acute Assessment and Plan: continue Accu-Cheks and sliding scale insulin - hyperglycemic likely secondary to dexamethasone - increase Levemir to 28 units q.12 hours (6) DVT prophylaxis: Code(s): Z29.9 - Encounter for prophylactic measures, unspecified Status: Acute Assessment and Plan: continue Lovenox 40 mg subcu q.12 hours (7) Dietary counseling and surveillance: Code(s): Z71.3 - Dietary counseling and surveillance Status: Acute Assessment and Plan: patient was started on tube feeds on 08/17/2020, advance as tolerated to goal (8) Pneumothorax on right: Code(s): J93.9 - Pneumothorax, unspecified Status: Acute Assessment and Plan: pneumothorax on the right side on 08/20 - chest tube was placed on 08/20 by surgery with re-expansion post chest tube placement. Additional Plan Will discuss with family. Code Status - Full code Total Critical Care Time : 34 minutes Due to a high probability of clinically significant, life threatening deterioration, the patient required my highest level of preparedness to intervene emergently and I personally spent this critical care time directly and personally managing the patient. This critical care time included obtaining a history; examining the patient; pulse oximetry; ordering and review of studies; arranging urgent treatment with development of a management plan; evaluation of patient's response to treatment; frequent reassessment; and discussions with other providers. It was exclusive of separately billable procedures and treating other patients and teaching time. Please see Assessment and Plan section and the rest of the no
[2020-08-22 15:31] LABS: Alveolar/Arterial O2 Gradient 560.5 mmHg; Base Excess ABG 1.9 mEq/l (+/-2.0); Fractional Inspired Oxygen 100 %; HCO3 ABG 29.9 mEq/l (22.0-26.0); Oxygen Content ABG 16.5 %vol (16.0-22.0); Oxygen Saturation ABG 95.6 % (95.0-100.0); Oxyhemoglobin 94.9 % THb (90.0-100.0); PO2 ABG 89.1 mmHg (80.0-100.0); PO2 FiO2 Ratio Arterial Blood 0.89 %; Total Hemoglobin 12.3 g/dL (12.0-18.0); pH ABG 7.291 (7.350-7.450)
[2020-08-22 15:33] LABS: Arterial Blood Gas PEEP 13 cmH2O; Arterial Blood Gas Tidal Volume 330 ml; Arterial Blood Gas Vent Mode CMV; Arterial Blood Gas Ventilator rate 32 /MIN; Device VENTILATOR; Modified Allen's Test Pass; PCO2 ABG 63.4 mmHg (35.0-45.0); Site Drawn LEFT RADIAL
[2020-08-22 17:48] LABS: Glucose Point of Care 244 (65-105)
[2020-08-23] VITALS (40 sets, daily range): BP systolic 112–148; BP diastolic 56–79; PULSE 61–119; RESP 36–40; TEMP 36.3–38.2; O2SAT 83–99
[2020-08-23] MEDS: EPOPROSTENOL SODIUM 0.5 MG VIAL 1 MG INHALATION ×5 (01:05→20:14)
[2020-08-23 01:47] LABS: Vancomycin Trough 20.4 ug/mL (10.0-20.0)
[2020-08-23 02:24] LABS: Glucose Point of Care 286 (65-105)
[2020-08-23 05:15] LABS: Hematocrit 28.2 % (37.0-47.0); Hemoglobin 8.9 g/dL (12.0-15.0); Mean Corpuscular HGB Conc 31.6 g/dl (32-36); Mean Corpuscular Hemoglobin 29.6 pg (26-34); Mean Corpuscular Volume 93.7 fl (80-100); Mean Platelet Volume 10.4 fl (7.4-10.4); Platelet Count Result 187 k/mm3 (150-375); Red Blood Count 3.01 M/mm3 (4.2-5.4); Red Cell Distribution Width 13.4 % (11.5-14.5); White Blood Count 10.2 K/mm3 (4.5-10.0)
[2020-08-23] MEDS: PROPOFOL IV EMULSION 100 ML 15.56 MG IV CONT (05:19)
[2020-08-23] MEDS: CENTRAL LINE FLUSH 10 ML IV PUSH ×3 (05:32→21:54)
[2020-08-23 05:35] LABS: Anion Gap 4 mmol/L (8-16); Blood Urea Nitrogen 49 mg/dL (7-17); Calcium 8.7 mg/dL (8.4-10.2); Carbon Dioxide 34 mmol/L (22-30); Chloride 97 mmol/L (98-107); Estimated CRCL calculation 75 ml/min; Estimated Glomerular Filt Rate > 60; Glucose 250 mg/dL (65-105); Phosphorus 5.1 mg/dL (2.5-4.5); Potassium 4.9 mmol/L (3.4-5.0); Sodium 135 mmol/L (137-145)
[2020-08-23] MEDS: INSULIN ASPART (*BKC) 100 UNITS/ML SUB-Q ×2 (05:37→12:17)
[2020-08-23 06:47] LABS: Alveolar/Arterial O2 Gradient 581.9 mmHg; Base Excess ABG 3.5 mEq/l (+/-2.0); Carboxyhemoglobin 0.3 % THb (0-2.0); Fractional Inspired Oxygen 100 %; HCO3 ABG 30.4 mEq/l (22.0-26.0); Methemoglobin ABG 0.2 %THb (0-1.5); Oxygen Content ABG 13.9 %vol (16.0-22.0); Oxygen Saturation ABG 93.2 % (95.0-100.0); Oxyhemoglobin 92.8 % THb (90.0-100.0); PCO2 ABG 58.8 mmHg (35.0-45.0); PO2 ABG 72.3 mmHg (80.0-100.0); PO2 FiO2 Ratio Arterial Blood 0.72 %; Reduced Hemoglobin 6.7 %THb (0-5.0); Total Hemoglobin 10.6 g/dL (12.0-18.0); pH ABG 7.332 (7.350-7.450)
[2020-08-23 06:48] LABS: Arterial Blood Gas PEEP 13 cmH2O; Arterial Blood Gas Tidal Volume 320 ml; Arterial Blood Gas Vent Mode CMV; Arterial Blood Gas Ventilator rate 36 /MIN; Device VENTILATOR; Modified Allen's Test Pass; Site Drawn LEFT RADIAL
[2020-08-23 07:14] LABS: Glucose Point of Care 231 (65-105)
[2020-08-23] MEDS: INSULIN DETEMIR 100 UNITS/ML 32 UNITS SUB-Q ×2 (08:27→21:54)
[2020-08-23] MEDS: ZINC SULFATE 220 MG CAPSULE PO (08:28)
[2020-08-23] MEDS: ASCORBIC ACID 500 MG TABLET 1000 MG PO (08:28)
[2020-08-23] MEDS: ENOXAPARIN 40 MG/0.4 ML SYRINGE SUB-Q ×2 (08:28→21:02)
[2020-08-23] MEDS: CHOLECALCIFEROL 1,000 UNITS TABLET 1000 UNITS PO (08:28)
[2020-08-23] MEDS: FENTANYL 2,500MCG/NS250ML(*CRX 2,500 MCG/250 ML BAG 20 MCG IV CONT ×2 (09:22→21:52)
[2020-08-23] MEDS: PROPOFOL IV EMULSION 100 ML 38.91 MG IV CONT ×5 (11:01→21:50)
--- NOTE | 2020-08-23 12:01 | PCDIET ---
Nutrition Follow-Up Complete: Nutrition Diagnosis: Inadequate oral intake related to pneumonia as evidenced by reported 20 pounds and poor po intake. Nutrition Goal: Adequate intake of at least 75% of meals Goal not applicable due to mechanical ventilation. Will continue to monitor with new goal of patient to meet estimated needs. Vital HP has been resumed and currently infusing at 50mL/hr without issues, per RN. Recommended keeping rate of 50mL/hr today due to significant amount of kcal/fat from Propofol. agreeable. Last recorded weight is 136.6 kg which is down from last review, despite +I/O. Will monitor. Bowel Motility: No recent BM documented. Recommend medication to promote BM if medically appropriate. Labs Reviewed: WBC (10.2), Hgb (8.9), Hct (28.2), Glu (250), PO4 (5.1), Mg (3.0), BUN (49), Na (135) Meds Noted: Atrovent, Versed, Propofol (rate of 15.54mL/hr provides 410kcal per day), Albuterol, Vitamin C, Cefepime, Nimbex, Fentanyl, Hydralazine, Novolog, Levemir, Vancomycin, Vitamin D, Zinc Sulfate Additional Notes: Chest tube site reported with no other skin issues. Will continue to monitor. Nutrition Monitoring and Evaluation: Follow up every Saturday/Saturday. Follow daily in ICU rounds.
[2020-08-23] MEDS: EPOPROSTENOL SODIUM 0.5 MG VIAL INHALATION (13:30)
--- NOTE | 2020-08-23 13:45 | WPDINTPN ---
Progress Note: A&P Assessment and Plan (1) Acute respiratory failure with hypoxia: Code(s): J96.01 - Acute respiratory failure with hypoxia Status: Acute Assessment and Plan: Acute Respiratory failure secondary to COVID-19 pneumonia - on 08/16/2020: patient failed BiPAP, INTUBATED for impending respiratory failure secondary to significant tachypnea and desaturation. - was started on Flolan 08/16/2020. It was weaned off but has to be restarted back on for resistant hypoxia after she developed right-sided pneumothorax. Wean Flolan if tolerated. - Completed course of Remdesivir - completed course of dexamethasone - 08/13 received 1 unit of convalescent plasma - Continue bronchodilators - sedated with fentanyl and Versed infusion. neuromuscular blockade with Nimbex was added - patient is on CMV mode of ventilation, tidal volume 320ml, Rate of 36, peep of 13 , FiO2 of 100%. try to decrease PEEP to 12 and FiO2 to 90%, patient desaturated So placed back on of 13 and 100% FiO2. - Patient is 10 L positive fluid balance, will give 1 dose of Lasix today 08/23 echocardiogram 08/20/2020 showed hyperdynamic LV function with EF of 70%, normal LV size and wall thickness. Normal diastolic dysfunction. Valves are not well visualized. Unable to assess RVSP (2) Pneumonia due to 2019 novel coronavirus: Code(s): U07.1 - COVID-19; J12.89 - Other viral pneumonia Status: Acute Assessment and Plan: see above (3) UMER (acute kidney injury): Code(s): N17.9 - Acute kidney failure, unspecified Status: Acute Assessment and Plan: acute kidney injury most likely related to hypoxia - Acute kidney injury has resolved now. - continue monitor urine output, renal function and electrolytes (4) Hypertension: Qualifiers: Hypertension type: essential hypertension Qualified Code(s): I10 - Essential (primary) hypertension Code(s): I10 - Essential (primary) hypertension Status: Acute Assessment and Plan: hydralazine p.r.n. (5) Diabetes: Qualifiers: Diabetes mellitus type: type 2 Diabetes mellitus long chain dyeing machine operator insulin use: without chcf use Diabetes mellitus complication status: without complication Qualified Code(s): E11.9 - Type 2 diabetes mellitus without complications Code(s): E11.9 - Type 2 diabetes mellitus without complications Status: Acute Assessment and Plan: continue Accu-Cheks and sliding scale insulin - hyperglycemic likely secondary to dexamethasone - increase Levemir to 32 units q.12 hours (6) DVT prophylaxis: Code(s): Z29.9 - Encounter for prophylactic measures, unspecified Status: Acute Assessment and Plan: continue Lovenox 40 mg subcu q.12 hours (7) Dietary counseling and surveillance: Code(s): Z71.3 - Dietary counseling and surveillance Status: Acute Assessment and Plan: patient was started on tube feeds on 08/17/2020, advance as tolerated to goal (8) Pneumothorax on right: Code(s): J93.9 - Pneumothorax, unspecified Status: Acute Assessment and Plan: pneumothorax on the right side on 08/20 - chest tube was placed on 08/20 by surgery with re-expansion post chest tube placement. Additional Plan discussed with MOHAN Lopez and updated with patient's condition and plan of care. I did let her know that the patient is critically ill requiring maximum amount of oxygen on the ventilator along with increased peep. I did tell her that patient is a neuromuscular blockade and Flolan. I discussed with her regarding DNR status, she said she will be talking to her family and will get back to me. Condition: Guarded /critically ill Code Status - Full code Total Critical Care Time : 34 minutes Due to a high probability of clinically significant, life threatening deterioration, the patient required my highest level of preparedness to
[2020-08-23 13:51] LABS: Glucose Point of Care 205 (65-105)
[2020-08-23 14:48] LABS: Base Excess ABG 2.9 mEq/l (+/-2.0); Carboxyhemoglobin 0.3 % THb (0-2.0); Fractional Inspired Oxygen 100 %; HCO3 ABG 29.3 mEq/l (22.0-26.0); Methemoglobin ABG 0.1 %THb (0-1.5); Oxygen Content ABG 12.9 %vol (16.0-22.0); Oxyhemoglobin 87.8 % THb (90.0-100.0); PCO2 ABG 54.5 mmHg (35.0-45.0); PO2 ABG 57.5 mmHg (80.0-100.0); PO2 FiO2 Ratio Arterial Blood 0.57 %; Reduced Hemoglobin 11.8 %THb (0-5.0); Total Hemoglobin 10.4 g/dL (12.0-18.0); pH ABG 7.349 (7.350-7.450)
[2020-08-23 14:49] LABS: Arterial Blood Gas Ventilator rate 36 /MIN; Device VENTILATOR; Modified Allen's Test Pass; Site Drawn RIGHT RADIAL
[2020-08-23 14:50] LABS: Arterial Blood Gas PEEP 13 cmH2O; Arterial Blood Gas Tidal Volume 320 ml; Arterial Blood Gas Vent Mode ASSIST CONTROL
--- NOTE | 2020-08-23 17:49 | PM.IMPN ---
Progress Note: A&P Assessment and Plan (1) Pneumothorax on right: Code(s): J93.9 - Pneumothorax, unspecified Status: Acute Assessment and Plan: S/p chest tube placement Chest tube hooked to water seal. Continue to monitor. Lung expanded Chest xr noted. (2) Acute respiratory failure with hypoxia: Code(s): J96.01 - Acute respiratory failure with hypoxia Status: Acute Assessment and Plan: On ventilator support Appreciate int/cc note Vent settings noted Continue supportive care Pulmonary toilette (3) Pneumonia due to 2019 novel coronavirus: Code(s): U07.1 - COVID-19; J12.89 - Other viral pneumonia Status: Acute Assessment and Plan: Completed Remdesivir Extensive infiltrates on Cefepime and Vanc (4) UMER (acute kidney injury): Code(s): N17.9 - Acute kidney failure, unspecified Status: Acute Assessment and Plan: Bun/Cr wnl Daily BMP Strict I/O's Subjective Date/time seen: 08/23/20 17:49 Patient on ventilator support. Review of Systems Review of Systems: Narrative: Unable to get as patient is on vent support. Exam Narrative: Exam Narrative: Patient is in bed on Vent support. Const: General: other (Under sedation.) HENMT: Head: normal to inspection and normocephalic Mouth: Yes other (ETT in place.) Eyes: General: appearance normal, both eyes and all related structures Pupils: Equal, round and reactive pupils present EOM: EOMs intact bilaterally Neck: Neck: no lymphadenopathy and no JVD Resp: Auscultation: diminished lung sounds Cardio: Jugular venous distension: no JVD Rate: regular rate Rhythm: regular rhythm GI: Inspection: normal to inspection GI Palp: Yes Soft to palpation and Yes No hepatosplenomegaly present Auscultation: normal bowel sounds Skin: General skin exam: normal color Lesions: no lesions Rashes: no rashes Trauma: no lacerations or abrasions Wounds: no wounds Neuro: General: other (Under sedation.) Extrem: General: no pedal edema Objective Data Vital Signs Vital Signs: Vital Signs - 24 hr 08/22/20 18:00 08/22/20 19:29 08/22/20 19:40 Temperature 98.5 F Pulse Rate 67 65 65 Respiratory Rate 36 H 36 H 36 H Blood Pressure 104/62 Pulse Oximetry 92 93 08/22/20 19:41 08/22/20 20:00 08/22/20 22:00 Temperature 97.6 F 97.2 F L Pulse Rate 65 65 69 Respiratory Rate 36 H 36 H Blood Pressure 115/61 118/65 Pulse Oximetry 93 90 91 08/22/20 22:16 08/22/20 23:03 08/22/20 23:23 Temperature Pulse Rate 63 63 67 Respiratory Rate 36 H 36 H 36 H Blood Pressure Pulse Oximetry 90 08/22/20 23:24 08/22/20 23:55 08/22/20 23:56 Temperature Pulse Rate 67 63 62 Respiratory Rate 36 H 36 H Blood Pressure 125/68 113/64 Pulse Oximetry 90 08/23/20 00:00 08/23/20 00:08 08/23/20 01:06 Temperature 97.3 F L Pulse Rate 62 62 62 Respiratory Rate 36 H 36 H 36 H Blood Pressure 124/66 Pulse Oximetry 92 89 L 08/23/20 01:10 08/23/20 01:39 08/23/20 02:00 Temperature 97.8 F Pulse Rate 62 61 62 Respiratory Rate 36 H 36 H Blood Pressure 113/64 119/64 Pulse Oximetry 89 L 92 08/23/20 02:03 08/23/20 04:00 08/23/20 05:19 Temperature 97.6 F Pulse Rate 62 63 68 Respiratory Rate 36 H 36 H 36 H Blood Pressure 131/69 Pulse Oximetry 99 08/23/20 05:33 08/23/20 05:48 08/23/20 06:00 Temperature 97.7 F Pulse Rate 66 66 69 Respiratory Rate 36 H 36 H 36 H Blood Pressure 139/72 136/79 Pulse Oximetry 98 99 08/23/20 08:00 08/23/20 08:30 08/23/20 09:17 Temperature 97.5 F L Pulse Rate 72 75 76 Respiratory Rate 36 H 36 H 36 H Blood Pressure 141/69 H Pulse Oximetry 97 97 08/23/20 09:22 08/23/20 09:24 08/23/20 10:00 Temperature 97.4 F L Pulse Rate 75 75 76 Respiratory Rate 36 H 36 H 36 H Blood Pressure 140/62 Pulse Oximetry 89 L 08/23/20 11:01 08/23/20 11:47 08/23/20 12:00 Temperature 97.5 F L Pulse Rate 75 71 72 Respiratory Rate
[2020-08-23] MEDS: FUROSEMIDE INJ 40 MG/4 ML VIAL IV PUSH (17:51)
[2020-08-23 18:52] LABS: Glucose Point of Care 200 (65-105)
[2020-08-23 21:51] LABS: Alveolar/Arterial O2 Gradient 571.1 mmHg; Base Excess ABG 2.1 mEq/l (+/-2.0); Fractional Inspired Oxygen 100 %; HCO3 ABG 31.4 mEq/l (22.0-26.0); Methemoglobin ABG 0.3 %THb (0-1.5); Oxygen Content ABG 14.5 %vol (16.0-22.0); Oxygen Saturation ABG 88.4 % (95.0-100.0); Oxyhemoglobin 89.3 % THb (90.0-100.0); PO2 FiO2 Ratio Arterial Blood 0.66 %; Reduced Hemoglobin 10.4 %THb (0-5.0); Total Hemoglobin 11.5 g/dL (12.0-18.0)
[2020-08-23 21:53] LABS: Device VENTILATOR; PCO2 ABG 75.9 mmHg (35.0-45.0); Site Drawn LEFT BRACHIAL; pH ABG 7.234 (7.350-7.450)
[2020-08-23 21:54] LABS: Arterial Blood Gas PEEP 13 cmH2O; Arterial Blood Gas Tidal Volume 320 ml; Arterial Blood Gas Vent Mode ASSIST CONTROL; Arterial Blood Gas Ventilator rate 36 /MIN
[2020-08-23 23:53] LABS: Alveolar/Arterial O2 Gradient 582.6 mmHg; Base Excess ABG 1.1 mEq/l (+/-2.0); Fractional Inspired Oxygen 100 %; HCO3 ABG 29.6 mEq/l (22.0-26.0); Oxygen Content ABG 13.5 %vol (16.0-22.0); Oxygen Saturation ABG 87.2 % (95.0-100.0); Oxyhemoglobin 87.7 % THb (90.0-100.0); PO2 ABG 61.9 mmHg (80.0-100.0); PO2 FiO2 Ratio Arterial Blood 0.62 %; Total Hemoglobin 10.9 g/dL (12.0-18.0)
[2020-08-23 23:55] LABS: Device VENTILATOR; PCO2 ABG 68.5 mmHg (35.0-45.0); Site Drawn LEFT BRACHIAL; pH ABG 7.253 (7.350-7.450)
[2020-08-23 23:56] LABS: Arterial Blood Gas PEEP 15 cmH2O; Arterial Blood Gas Tidal Volume 320 ml; Arterial Blood Gas Vent Mode ASSIST CONTROL; Arterial Blood Gas Ventilator rate 36 /MIN
[2020-08-24] VITALS (43 sets, daily range): BP systolic 112–134; BP diastolic 59–73; PULSE 94–115; RESP 32–36; TEMP 37.3–38.2; O2SAT 84–95
[2020-08-24] MEDS: PROPOFOL IV EMULSION 100 ML 38.91 MG IV CONT ×2 (00:20→02:48)
[2020-08-24] MEDS: INSULIN ASPART (*BKC) 100 UNITS/ML SUB-Q ×4 (00:24→17:22)
[2020-08-24 00:47] LABS: Glucose Point of Care 328 (65-105)
[2020-08-24] MEDS: EPOPROSTENOL SODIUM 0.5 MG VIAL 1 MG INHALATION ×4 (02:29→21:04)
[2020-08-24 04:29] LABS: Alveolar/Arterial O2 Gradient 572.7 mmHg; Carboxyhemoglobin 0.3 % THb (0-2.0); Fractional Inspired Oxygen 100 %; HCO3 ABG 28.4 mEq/l (22.0-26.0); Methemoglobin ABG 0.3 %THb (0-1.5); Oxygen Content ABG 14.2 %vol (16.0-22.0); Oxygen Saturation ABG 91.7 % (95.0-100.0); Oxyhemoglobin 92.1 % THb (90.0-100.0); PO2 ABG 73.3 mmHg (80.0-100.0); PO2 FiO2 Ratio Arterial Blood 0.73 %; Reduced Hemoglobin 7.3 %THb (0-5.0); Total Hemoglobin 10.9 g/dL (12.0-18.0)
[2020-08-24 04:31] LABS: Device VENTILATOR; Modified Allen's Test Pass; Site Drawn LEFT RADIAL; pH ABG 7.245 (7.350-7.450)
[2020-08-24 04:32] LABS: Arterial Blood Gas PEEP 15 cmH2O; Arterial Blood Gas Tidal Volume 320 ml; Arterial Blood Gas Vent Mode CMV; Arterial Blood Gas Ventilator rate 36 /MIN
[2020-08-24] MEDS: PROPOFOL IV EMULSION 100 ML 35.02 MG IV CONT ×4 (05:35→15:35)
[2020-08-24] MEDS: CENTRAL LINE FLUSH 10 ML IV PUSH ×3 (05:54→22:55)
[2020-08-24 06:06] LABS: Hematocrit 32.8 % (37.0-47.0); Mean Corpuscular HGB Conc 30.5 g/dl (32-36); Mean Corpuscular Hemoglobin 29.8 pg (26-34); Mean Corpuscular Volume 97.6 fl (80-100); Mean Platelet Volume 10.2 fl (7.4-10.4); Platelet Count Result 233 k/mm3 (150-375); Red Blood Count 3.36 M/mm3 (4.2-5.4); Red Cell Distribution Width 13.6 % (11.5-14.5)
[2020-08-24 06:34] LABS: D Dimer 4.41 ug/mL (<0.48)
[2020-08-24 06:48] LABS: Anion Gap 3 mmol/L (8-16); Blood Urea Nitrogen 51 mg/dL (7-17); CRP 23.3 mg/dL (<1.0); Calcium 8.7 mg/dL (8.4-10.2); Carbon Dioxide 35 mmol/L (22-30); Chloride 93 mmol/L (98-107); Estimated CRCL calculation 53 ml/min; Estimated Glomerular Filt Rate 50; Glucose 320 mg/dL (65-105); Lactate Dehydrogenase 766 U/L (313-618); Magnesium 2.9 mg/dL (1.6-2.3); Phosphorus 6.4 mg/dL (2.5-4.5); Potassium 5.1 mmol/L (3.4-5.0); Sodium 131 mmol/L (137-145)
[2020-08-24 07:01] LABS: Glucose Point of Care 300 (65-105)
[2020-08-24] MEDS: ASCORBIC ACID 500 MG TABLET 1000 MG PO (09:31)
[2020-08-24] MEDS: ENOXAPARIN 40 MG/0.4 ML SYRINGE SUB-Q ×2 (09:31→20:03)
[2020-08-24] MEDS: CHOLECALCIFEROL 1,000 UNITS TABLET 1000 UNITS PO (09:32)
[2020-08-24] MEDS: ZINC SULFATE 220 MG CAPSULE PO (09:32)
[2020-08-24] MEDS: FENTANYL 2,500MCG/NS250ML(*CRX 2,500 MCG/250 ML BAG 17.5 MCG IV CONT (09:37)
[2020-08-24] MEDS: INSULIN DETEMIR 100 UNITS/ML 32 UNITS SUB-Q ×2 (09:45→20:15)
[2020-08-24] MEDS: INSULIN GLARGINE (*BKC) 100 UNITS/ML 15 UNITS SUB-Q (10:53)
[2020-08-24 11:26] LABS: Alveolar/Arterial O2 Gradient 572.1 mmHg; Base Excess ABG 0.4 mEq/l (+/-2.0); Carboxyhemoglobin 0.4 % THb (0-2.0); Fractional Inspired Oxygen 100 %; HCO3 ABG 29.8 mEq/l (22.0-26.0); Methemoglobin ABG 0.3 %THb (0-1.5); Oxyhemoglobin 89.1 % THb (90.0-100.0); PO2 ABG 64.6 mmHg (80.0-100.0); PO2 FiO2 Ratio Arterial Blood 0.65 %; Reduced Hemoglobin 10.2 %THb (0-5.0); Total Hemoglobin 11.1 g/dL (12.0-18.0)
[2020-08-24 11:29] LABS: Device VENTILATOR; Modified Allen's Test Pass; PCO2 ABG 76.3 mmHg (35.0-45.0); Site Drawn LEFT RADIAL; pH ABG 7.209 (7.350-7.450)
[2020-08-24 11:30] LABS: Arterial Blood Gas PEEP 15 cmH2O; Arterial Blood Gas Tidal Volume 320 ml; Arterial Blood Gas Vent Mode CMV; Arterial Blood Gas Ventilator rate 36 /MIN
--- NOTE | 2020-08-24 11:40 | PCDIET ---
ICU Rounding Note: Patient has been tolerating Vital HP at 50mL/hr. Recommended change to 30mL/hr Glucerna 1.2 due to hyperglycemia and increased Propofol dose to which MD agreeable. Given 22 hour daily infusion, this will provide 792kcal (1716kcal with Propofol at current rate), 40g protein and 531mL free water. Will recommend further adjustment in tube feedings, as needed; will likely suggest protein flushes if unable to increase rate with decrease in Propofol. Last recorded weight is 137.3kg which is increased from last review. +I/O. Bowel Motility: No documented BM, although bowel sounds present and tube feedings have been tolerated. If medically appropriate, would consider medication to promote BM. Labs Reviewed: Hgb (10.0), Hct (32.8), Glu (320), BUN (51), Cr (1.3), K (5.1), Na (131), PO4 (6.4), Mg (2.9) Meds Noted: Albuterol, Nimbex, Vitamin C, Fentanyl, Novolog, Levemir, Atrovent, Versed, Levophed, Vancomycin, Vitamin D, Zinc Sulfate, Propofol (rate of 35.02mL/hr provides 924kcal per day) Additional Notes: No documented skin breakdown. Following daily in ICU rounds. Assessing/reassessing every Saturday/Saturday.
--- NOTE | 2020-08-24 11:52 | PM.IMPN ---
Progress Note: A&P Assessment and Plan (1) COVID-19: Code(s): U07.1 - COVID-19 Status: Acute Assessment and Plan: Received 1 unit of convalescent plasma. Courses of Remdesivir completed. Currently on Cefepime and Vanc likely superimposed bacterial infection. (2) Pneumothorax on right: Code(s): J93.9 - Pneumothorax, unspecified Status: Acute Assessment and Plan: Chest tube in place connected to water seal. 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 ISS as needed Subjective Date/time seen: 08/24/20 11:52 On vent support. Review of Systems Review of Systems: Narrative: Unable to obtain due to patient being on vent support. Exam Narrative: Exam Narrative: On life support. Const: General: comfortable Nutritional Appearance: overweight HENMT: Head: normal to inspection and normocephalic Eyes: General: appearance normal, both eyes and all related structures Pupils: Equal, round and reactive pupils present EOM: EOMs intact bilaterally Neck: Neck: normal visual inspection Resp: Auscultation: diminished lung sounds Cardio: Rate: regular rate Rhythm: regular rhythm GI: Inspection: Pannus present GI Palp: Yes Soft to palpation and Yes No hepatosplenomegaly present Skin: General skin exam: normal color Lesions: no lesions Trauma: no lacerations or abrasions Wounds: no wounds Neuro: General: other (under sedation.) Extrem: General: no pedal edema Objective Data Vital Signs Vital Signs: Vital Signs - 24 hr 08/23/20 12:00 08/23/20 13:31 08/23/20 14:00 Temperature 97.5 F L 98.5 F Pulse Rate 72 79 78 Respiratory Rate 36 H 40 H 36 H Blood Pressure 116/58 L 112/68 Pulse Oximetry 89 L 88 L 88 L 08/23/20 14:10 08/23/20 16:00 08/23/20 16:05 Temperature 99.3 F Pulse Rate 79 89 90 Respiratory Rate 37 H 36 H 36 H Blood Pressure 135/64 135/64 Pulse Oximetry 87 L 90 08/23/20 16:25 08/23/20 17:13 08/23/20 18:00 Temperature 99.5 F Pulse Rate 89 99 102 H Respiratory Rate 36 H 36 H Blood Pressure 135/64 148/69 H Pulse Oximetry 90 90 08/23/20 18:46 08/23/20 20:00 08/23/20 20:21 Temperature 100.1 F H Pulse Rate 106 H 112 H 109 H Respiratory Rate 36 H 36 H 36 H Blood Pressure 140/70 Pulse Oximetry 87 L 90 08/23/20 21:16 08/23/20 21:50 08/23/20 21:52 Temperature Pulse Rate 119 H 114 H 114 H Respiratory Rate 36 H 36 H Blood Pressure Pulse Oximetry 84 L 08/23/20 22:00 08/23/20 22:42 08/23/20 23:15 Temperature 100.5 F H 100.6 F H Pulse Rate 114 H 111 H Respiratory Rate 36 H 36 H Blood Pressure 148/56 H Pulse Oximetry 86 L 83 L 08/23/20 23:40 08/23/20 23:47 08/24/20 00:00 Temperature 100.7 F H 100.7 F H Pulse Rate 111 H 110 H Respiratory Rate 36 H 36 H Blood Pressure 119/59 L Pulse Oximetry 86 L 84 L 08/24/20 00:20 08/24/20 00:33 08/24/20 02:00 Temperature 99.4 F Pulse Rate 107 H 104 H 97 Respiratory Rate 36 H 36 H 36 H Blood Pressure 122/63 117/70 Pulse Oximetry 88 L 08/24/20 02:11 08/24/20 02:48 08/24/20 04:00 Temperature 99.3 F Pulse Rate 97 96 95 Respiratory Rate 36 H 36 H 36 H Blood Pressure 134/66 Pulse Oximetry 89 L 95 08/24/20 04:12 08/24/20 05:35 08/24/20 05:36 Temperature Pulse Rate 94 99 99 Respiratory Rate 36 H 36 H 36 H Blood Pressure Pulse Oximetry 94 08/24/20 05:54
--- NOTE | 2020-08-24 11:58 | WPDINTPN ---
Progress Note: A&P Assessment and Plan (1) Acute respiratory failure with hypoxia: Code(s): J96.01 - Acute respiratory failure with hypoxia Status: Acute Assessment and Plan: Acute Respiratory failure secondary to COVID-19 pneumonia - on 08/16/2020: patient failed BiPAP, INTUBATED for impending respiratory failure secondary to significant tachypnea and desaturation. - was started on Flolan 08/16/2020. It was weaned off but has to be restarted back on for resistant hypoxia after she developed right-sided pneumothorax. no significant benefit has been obtained from Flolan but will continue as stopping may further decompensate - Completed course of Remdesivir - completed course of dexamethasone - 08/13 received 1 unit of convalescent plasma - Continue bronchodilators - sedated with fentanyl and Versed infusion. neuromuscular blockade with Nimbex - patient is on CMV mode of ventilation, tidal volume 320ml, Rate of 36, peep of 15 , FiO2 of 100%. - permissive hypercapnia - patient was given Lasix yesterday. hold further Lasix as increase in creatinine echocardiogram 08/20/2020 showed hyperdynamic LV function with EF of 70%, normal LV size and wall thickness. Normal diastolic dysfunction. Valves are not well visualized. Unable to assess RVSP (2) Pneumonia due to 2019 novel coronavirus: Code(s): U07.1 - COVID-19; J12.89 - Other viral pneumonia Status: Acute Assessment and Plan: see above (3) UMER (acute kidney injury): Code(s): N17.9 - Acute kidney failure, unspecified Status: Acute Assessment and Plan: acute kidney injury most likely related to hypoxia intravascular volume depletion - hold Lasix at this time - continue monitor urine output, renal function and electrolytes (4) Hypertension: Qualifiers: Hypertension type: essential hypertension Qualified Code(s): I10 - Essential (primary) hypertension Code(s): I10 - Essential (primary) hypertension Status: Acute Assessment and Plan: hydralazine p.r.n. (5) Diabetes: Qualifiers: Diabetes mellitus type: type 2 Diabetes mellitus assisted insulin use: without assisted use Diabetes mellitus complication status: without complication Qualified Code(s): E11.9 - Type 2 diabetes mellitus without complications Code(s): E11.9 - Type 2 diabetes mellitus without complications Status: Acute Assessment and Plan: continue Accu-Cheks and sliding scale insulin - hyperglycemic likely secondary to dexamethasone - Levemir increased (6) DVT prophylaxis: Code(s): Z29.9 - Encounter for prophylactic measures, unspecified Status: Acute Assessment and Plan: continue Lovenox 40 mg subcu q.12 hours (7) Dietary counseling and surveillance: Code(s): Z71.3 - Dietary counseling and surveillance Status: Acute Assessment and Plan: continue tube feeds switched to the EXPERIMENTAL BOX TESTER (8) Pneumothorax on right: Code(s): J93.9 - Pneumothorax, unspecified Status: Acute Assessment and Plan: pneumothorax on the right side on 08/20 - chest tube was placed on 08/20 by surgery with re-expansion post chest tube placement. - no air leak at this time Additional Plan patient critically ill with severe respiratory failure from COVID-19 pneumonia and ARDS. poor prognosis patient was not a candidate for ECMO due to high BMI and was not accepted by tertiary center unable to do prone ventilation due to chest tube Code Status - Full code Total Critical Care Time : 35 minutes Due to a high probability of clinically significant, life threatening deterioration, the patient required my highest level of preparedness to intervene emergently and I personally spent this critical care time directly and personally managing the patient. This critical care time included obtaining a history; examining the patient; pulse o
[2020-08-24 12:53] LABS: Glucose Point of Care 362 (65-105)
--- NOTE | 2020-08-24 13:09 | PM.EVENT ---
Event Note Event Note Event Note: patient had episode of desaturation and required bag ventilation. Patient was bagged with PEEP valve with only minimal improvement. Patient was placed back on ventilator and peep increased to 18. her saturation remains an 80%. Patient is on 18 PEEP 100% FiO2 and maximum dose of Flolan. I spoke to patient's niece Jessica and give her an update of overnight events and patient's current status. she wants me to discuss with all the family members on a phone call which I am happy to do. she will arrange a time tomorrow and call back with specific details. She requests the patient be kept full code until she discusses with other family members.
[2020-08-24 13:25] LABS: Procalcitonin 3.52 ng/mL (<0.10)
[2020-08-24 17:47] LABS: Glucose Point of Care 375 (65-105)
[2020-08-24 18:37] LABS: Base Excess ABG -2.9 mEq/l (+/-2.0); Carboxyhemoglobin 0.4 % THb (0-2.0); Fractional Inspired Oxygen 100 %; Methemoglobin ABG 0.1 %THb (0-1.5); Oxygen Content ABG 12.9 %vol (16.0-22.0); Oxyhemoglobin 83.7 % THb (90.0-100.0); PO2 ABG 57.2 mmHg (80.0-100.0); PO2 FiO2 Ratio Arterial Blood 0.57 %; Reduced Hemoglobin 15.8 %THb (0-5.0); Total Hemoglobin 10.9 g/dL (12.0-18.0)
[2020-08-24 18:38] LABS: PCO2 ABG 77.8 mmHg (35.0-45.0); pH ABG 7.159 (7.350-7.450)
[2020-08-24 18:39] LABS: Device VENTILATOR; Modified Allen's Test Pass; Oxygen Saturation ABG 80.2 % (95.0-100.0); Site Drawn LEFT RADIAL
[2020-08-24 18:40] LABS: Arterial Blood Gas PEEP 18 cmH2O; Arterial Blood Gas Pressure Support 0 cmH2O; Arterial Blood Gas Tidal Volume 320 ml; Arterial Blood Gas Vent Mode ASSIST CONTROL; Arterial Blood Gas Ventilator rate 33 /MIN
[2020-08-24] MEDS: PROPOFOL IV EMULSION 100 ML 27.24 MG IV CONT ×2 (19:45→23:02)
[2020-08-25] VITALS (46 sets, daily range): BP systolic 101–154; BP diastolic 58–80; PULSE 95–128; RESP 30–34; TEMP 36.3–37.7; O2SAT 68–100
[2020-08-25] MEDS: INSULIN ASPART (*BKC) 100 UNITS/ML SUB-Q (00:11)
[2020-08-25 00:50] LABS: Glucose Point of Care 336 (65-105)
[2020-08-25] MEDS: EPOPROSTENOL SODIUM 0.5 MG VIAL 1 MG INHALATION ×4 (02:15→20:21)
[2020-08-25] MEDS: FENTANYL 2,500MCG/NS250ML(*CRX 2,500 MCG/250 ML BAG 15 MCG IV CONT ×2 (02:22→18:24)
[2020-08-25] MEDS: PROPOFOL IV EMULSION 100 ML 27.24 MG IV CONT ×6 (03:04→21:31)
[2020-08-25 04:34] LABS: Alveolar/Arterial O2 Gradient 574.1 mmHg; Carboxyhemoglobin 0.7 % THb (0-2.0); Fractional Inspired Oxygen 100 %; HCO3 ABG 27.3 mEq/l (22.0-26.0); Methemoglobin ABG 0.4 %THb (0-1.5); Oxygen Content ABG 11.4 %vol (16.0-22.0); Oxyhemoglobin 75.8 % THb (90.0-100.0); PO2 FiO2 Ratio Arterial Blood 0.46 %; Reduced Hemoglobin 23.1 %THb (0-5.0); Total Hemoglobin 10.7 g/dL (12.0-18.0)
[2020-08-25 04:37] LABS: PCO2 ABG 92.8 mmHg (35.0-45.0); PO2 ABG 46.1 mmHg (80.0-100.0); pH ABG 7.087 (7.350-7.450)
[2020-08-25 04:38] LABS: Device VENTILATOR; Modified Allen's Test Pass; Oxygen Saturation ABG 63.5 % (95.0-100.0); Site Drawn LEFT RADIAL
[2020-08-25 04:39] LABS: Arterial Blood Gas PEEP 18 cmH2O; Arterial Blood Gas Tidal Volume 330 ml; Arterial Blood Gas Vent Mode CMV; Arterial Blood Gas Ventilator rate 33 /MIN
[2020-08-25 06:13] LABS: Hematocrit 31.1 % (37.0-47.0); Hemoglobin 9.5 g/dL (12.0-15.0); Mean Corpuscular HGB Conc 30.5 g/dl (32-36); Mean Corpuscular Hemoglobin 29.7 pg (26-34); Mean Corpuscular Volume 97.2 fl (80-100); Mean Platelet Volume 10.6 fl (7.4-10.4); Platelet Count Result 275 k/mm3 (150-375); Red Cell Distribution Width 13.6 % (11.5-14.5); White Blood Count 19.9 K/mm3 (4.5-10.0)
[2020-08-25] MEDS: CENTRAL LINE FLUSH 10 ML IV PUSH ×3 (06:27→22:15)
[2020-08-25 07:25] LABS: Anion Gap 7 mmol/L (8-16); Blood Urea Nitrogen 68 mg/dL (7-17); Calcium 8.7 mg/dL (8.4-10.2); Carbon Dioxide 31 mmol/L (22-30); Chloride 89 mmol/L (98-107); Estimated CRCL calculation 28 ml/min; Estimated Glomerular Filt Rate 23; Glucose 337 mg/dL (65-105); Phosphorus 10.6 mg/dL (2.5-4.5); Potassium 7.2 mmol/L (3.4-5.0); Sodium 127 mmol/L (137-145)
[2020-08-25] MEDS: INSULIN HUMAN REGULAR (*BKC) 100 UNITS/ML 10 UNITS IV PUSH (08:05)
[2020-08-25] MEDS: SODIUM BICARBONATE 8.4% 50 MEQ/50 ML VIAL 150 MEQ IV PUSH (08:05)
[2020-08-25] MEDS: ENOXAPARIN 40 MG/0.4 ML SYRINGE SUB-Q ×2 (08:07→22:11)
[2020-08-25] MEDS: SODIUM CHLORIDE 0.9% IV 500 ML IV CONT (08:08)
[2020-08-25] MEDS: INSULIN DETEMIR 100 UNITS/ML 32 UNITS SUB-Q (08:08)
[2020-08-25] MEDS: SODIUM POLYSTYRENE SULFONONATE 15 GM/60 ML BTL 30 GM PO (11:07)
--- NOTE | 2020-08-25 11:55 | WPDINTPN ---
Progress Note: A&P Assessment and Plan (1) Acute respiratory failure with hypoxia: Code(s): J96.01 - Acute respiratory failure with hypoxia Status: Acute Assessment and Plan: Acute Respiratory failure secondary to COVID-19 pneumonia - on 08/16/2020: patient failed BiPAP, INTUBATED for impending respiratory failure secondary to significant tachypnea and desaturation. - was started on Flolan 08/16/2020. It was weaned off but has to be restarted back on for resistant hypoxia after she developed right-sided pneumothorax. no significant benefit has been obtained from Flolan but will continue as stopping may further decompensate - Completed course of Remdesivir and dexamethasone - 08/13 received 1 unit of convalescent plasma - Continue bronchodilators - sedated with fentanyl and Versed infusion. neuromuscular blockade with Nimbex - patient is on CMV mode of ventilation, tidal volume 320ml, Rate of 36, peep of 20 , FiO2 of 100%. - permissive hypercapnia despite all these measures patient has remained hypoxic with saturation in 80s patient has dropped into 60s on multiple times requiring bag ventilation for prolonged period of time to get her sats up. With minimal movement patient desaturates into 60s. She has been refused by ECMO centers earlier due to very high BMI and was deemed not to be candidate. Patient was not prone ventilation because of chest tube which could get compressed working. at this point patient is so unstable that minimal movement bring this ask down to 60s. I increased the PEEP to 24 initially but her pressures were very high which forces to come down to PEEP of 20 - repeat ABG ordered echocardiogram 08/20/2020 showed hyperdynamic LV function with EF of 70%, normal LV size and wall thickness. Normal diastolic dysfunction. Valves are not well visualized. Unable to assess RVSP (2) Pneumonia due to 2019 novel coronavirus: Code(s): U07.1 - COVID-19; J12.89 - Other viral pneumonia Status: Acute Assessment and Plan: see above (3) UMER (acute kidney injury): Code(s): N17.9 - Acute kidney failure, unspecified Status: Acute Assessment and Plan: acute kidney injury most likely related to hypoxia intravascular volume depletion - will give small fluid bolus of 500 cc. not much room for hydration due to severe hypoxia - continue monitor urine output, renal function and electrolytes (4) Hyperkalemia: Code(s): E87.5 - Hyperkalemia Status: Acute Assessment and Plan: likely secondary to worsening of acidosis and along with the renal function patient given sodium bicarbonate 150 mEq, 10 units of insulin IV, Kayexalate per tube repeat level ordered (5) Hypertension: Qualifiers: Hypertension type: essential hypertension Qualified Code(s): I10 - Essential (primary) hypertension Code(s): I10 - Essential (primary) hypertension Status: Acute Assessment and Plan: hydralazine p.r.n. (6) Diabetes: Qualifiers: Diabetes mellitus type: type 2 Diabetes mellitus bed bug exterminator insulin use: without bed bug exterminator use Diabetes mellitus complication status: without complication Qualified Code(s): E11.9 - Type 2 diabetes mellitus without complications Code(s): E11.9 - Type 2 diabetes mellitus without complications Status: Acute Assessment and Plan: continue Accu-Cheks and sliding scale insulin - hyperglycemic likely secondary to dexamethasone - Levemir increased (7) DVT prophylaxis: Code(s): Z29.9 - Encounter for prophylactic measures, unspecified Status: Acute Assessment and Plan: continue Lovenox 40 mg subcu q.12 hours (8) Dietary counseling and surveillance: Code(s): Z71.3 - Dietary counseling and surveillance Status: Acute Assessment and Plan: continue tube feeds switched to Nepro (9) Pneumothorax on right: Code(s):
--- NOTE | 2020-08-25 12:05 | PCDIET ---
ICU Rounding Note: Patient tolerating Glucerna 1.2 at 30mL/hr. Recommended change to Nepro for lower K+ and PO4 content. Last recorded weight is 138.9kg which is up from last review. +I/O. Bowel Motility: No recent BM documented. Patient had SPS earlier today. Labs Reviewed: Hgb (9.5), Hct (31.1), Glu (337), BUN (68), Cr (2.5), K (7.2), PO4 (10.6) Meds Noted: Albuterol, Cefepime, Nimbex, Fentanyl, Apresoline, Novolog, Levemir, Atrovent, Versed, Levophed, Propofol (rate of 27.24mL/hr provides 719kcal per day) Additional Notes: No documented skin breakdown. Following daily in ICU rounds. Assessing/reassessing every Saturday/Saturday.
[2020-08-25 12:44] LABS: Anion Gap 10 mmol/L (8-16); Blood Urea Nitrogen 73 mg/dL (7-17); Carbon Dioxide 26 mmol/L (22-30); Chloride 86 mmol/L (98-107); Glucose 331 mg/dL (65-105); Potassium 6.7 mmol/L (3.4-5.0); Sodium 122 mmol/L (137-145)
[2020-08-25 12:48] LABS: Estimated CRCL calculation 31 ml/min; Estimated Glomerular Filt Rate 26
[2020-08-25] MEDS: CALCIUM GLUC 2,000 MG/NS 100ML 2,000 MG/100 ML BAG 100 MG IVPB (13:54)
[2020-08-25] MEDS: SODIUM BICARBONATE 8.4% 50 MEQ/50 ML VIAL 100 MEQ IV PUSH ×3 (13:55→19:52)
[2020-08-25] MEDS: SODIUM POLYSTYRENE SULFONONATE 15 GM/60 ML BTL 30 GM RECTAL (13:55)
[2020-08-25] MEDS: INSULIN HUMAN REGULAR (*BKC) 100 UNITS in SODIUM CHLORIDE 0.9% IV 99 ML 5.4 UNITS IV CONT (13:55)
[2020-08-25] MEDS: INSULIN HUMAN REGULAR (*BKC) 100 UNITS/ML 15 UNITS IV PUSH (13:56)
[2020-08-25 14:33] LABS: Glucose Point of Care 332 (65-105)
--- NOTE | 2020-08-25 14:44 | PM.IMPN ---
Progress Note: A&P Assessment and Plan (1) COVID-19: Code(s): U07.1 - COVID-19 Status: Acute Assessment and Plan: Patient has completed course of antibiotics. Poor prognosis (2) Pneumothorax on right: Code(s): J93.9 - Pneumothorax, unspecified Status: Acute Assessment and Plan: Chest tube in place. (3) Acute respiratory failure with hypoxia: Code(s): J96.01 - Acute respiratory failure with hypoxia Status: Acute Assessment and Plan: Vent dependent ARDS (4) Pneumonia due to 2019 novel coronavirus: Code(s): U07.1 - COVID-19; J12.89 - Other viral pneumonia Status: Acute Assessment and Plan: Complicated with ARDS and vent dependent respiratory failure. Continue present management as per family's wishes. Appreciate int/cc note Subjective Date/time seen: 08/25/20 14:44 Patient on vent support. Review of Systems Review of Systems: Narrative: Unable to obtain as patient is on vent support. Exam Narrative: Exam Narrative: Patient not examined seen thru glass door. Objective Data Vital Signs Vital Signs: Vital Signs - 24 hr 08/24/20 14:47 08/24/20 15:35 08/24/20 16:00 Temperature 100 F H Pulse Rate 108 H 108 H 110 H Respiratory Rate 32 H 32 H 33 H Blood Pressure 124/69 Pulse Oximetry 90 08/24/20 16:57 08/24/20 16:58 08/24/20 17:43 Temperature Pulse Rate 110 H 108 H 106 H Respiratory Rate 33 H 33 H Blood Pressure 124/69 Pulse Oximetry 90 88 L 08/24/20 18:00 08/24/20 18:01 08/24/20 18:02 Temperature 100.2 F H Pulse Rate 109 H 108 H 106 H Respiratory Rate 36 H 33 H Blood Pressure 117/69 Pulse Oximetry 86 L 90 88 L 08/24/20 18:25 08/24/20 19:20 08/24/20 19:45 Temperature Pulse Rate 106 H 115 H 110 H Respiratory Rate 33 H 33 H 33 H Blood Pressure 124/69 Pulse Oximetry 08/24/20 20:00 08/24/20 21:05 08/24/20 22:00 Temperature 100.1 F H 99.8 F H Pulse Rate 110 H 108 H 108 H Respiratory Rate 33 H 33 H 33 H Blood Pressure 112/65 120/68 Pulse Oximetry 89 L 89 L 85 L 08/24/20 22:31 08/24/20 23:02 08/24/20 23:32 Temperature Pulse Rate 108 H 109 H 108 H Respiratory Rate 33 H 33 H Blood Pressure Pulse Oximetry 85 L 08/25/20 00:00 08/25/20 01:25 08/25/20 01:26 Temperature 99.9 F H Pulse Rate 108 H 108 H 108 H Respiratory Rate 33 H 33 H Blood Pressure 116/64 Pulse Oximetry 84 L 85 L 85 L 08/25/20 02:00 08/25/20 02:22 08/25/20 02:23 Temperature 99.7 F H Pulse Rate 109 H 109 H 109 H Respiratory Rate 33 H 33 H 33 H Blood Pressure 118/65 Pulse Oximetry 81 L 08/25/20 02:24 08/25/20 03:04 08/25/20 03:05 Temperature Pulse Rate 109 H 111 H 111 H Respiratory Rate 33 H 33 H 33 H Blood Pressure 118/65 128/67 Pulse Oximetry 08/25/20 03:46 08/25/20 03:47 08/25/20 04:00 Temperature 99.6 F Pulse Rate 109 H 109 H 108 H Respiratory Rate 33 H 33 H Blood Pressure 122/68 Pulse Oximetry 80 L 80 L 80 L 08/25/20 05:05 08/25/20 05:07 08/25/20 05:08 Temperature Pulse Rate 107 H 107 H 107 H Respiratory Rate 33 H 33 H 33 H Blood Pressure 120/67 Pulse Oximetry 08/25/20 06:00 08/25/20 06:48 08/25/20 07:40 Temperature 99.1 F Pulse Rate 105 H 104 H 103 H Respiratory Rate 33 H 33 H 33 H Blood Pressure 115/62 Pulse Oximetry 80 L 79 L 08/25/20 07:50 08/25/20 08:00 08/25/20 10:00 Temperature 97.4 F L 98.0 F Pulse Rate 103 H 103 H 103 H Respiratory Rate 30 H 34 H Blood Pressure 123/69 112/62 Pulse Oximetry 79 L 72 L 76 L 08/25/20 10:29 08/25/20 11:08 08/25/20 12:00 Temperature 98.5 F Pulse Rate 103 H 103 H 99 Respiratory Rate 34 H 34 H 33 H Blood Pressure 101/63 Pulse Oximetry 77 L 08/25/20 13:50 08/25/20 14:00 08/25/20 14:14 Temperature 98.3 F Pulse Rate 98 106 H 104 H Respiratory Rate 33 H 33 H 33 H Blood Pressure 129/63 Pulse Oximetry 75 L Intake/Output Intake/Output: Intake & Output
[2020-08-25 15:39] LABS: Glucose Point of Care 252 (65-105)
[2020-08-25 16:16] LABS: Alveolar/Arterial O2 Gradient 580.4 mmHg; Base Excess ABG -1.3 mEq/l (+/-2.0); Carboxyhemoglobin 0.5 % THb (0-2.0); Fractional Inspired Oxygen 100 %; HCO3 ABG 27.1 mEq/l (22.0-26.0); Methemoglobin ABG 0.2 %THb (0-1.5); Oxygen Content ABG 12.6 %vol (16.0-22.0); Oxygen Saturation ABG 88.4 % (95.0-100.0); Oxyhemoglobin 90.3 % THb (90.0-100.0); PO2 ABG 65.8 mmHg (80.0-100.0); PO2 FiO2 Ratio Arterial Blood 0.66 %; Total Hemoglobin 9.9 g/dL (12.0-18.0)
[2020-08-25 16:21] LABS: Device VENTILATOR; PCO2 ABG 66.8 mmHg (35.0-45.0); Site Drawn RIGHT RADIAL; pH ABG 7.226 (7.350-7.450)
[2020-08-25 16:22] LABS: Arterial Blood Gas PEEP 20 cmH2O; Arterial Blood Gas Vent Mode CMV; Arterial Blood Gas Ventilator rate 33 /MIN
[2020-08-25 16:23] LABS: Arterial Blood Gas Tidal Volume 320 ml
[2020-08-25 16:40] LABS: Glucose Point of Care 255 (65-105)
[2020-08-25 17:49] LABS: Glucose Point of Care 240 (65-105)
[2020-08-25 18:49] LABS: Glucose Point of Care 213 (65-105)
[2020-08-25 18:52] LABS: Anion Gap 10 mmol/L (8-16); Blood Urea Nitrogen 78 mg/dL (7-17); Calcium 7.7 mg/dL (8.4-10.2); Carbon Dioxide 34 mmol/L (22-30); Chloride 84 mmol/L (98-107); Estimated CRCL calculation 26 ml/min; Estimated Glomerular Filt Rate 21; Glucose 235 mg/dL (65-105); Potassium 5.7 mmol/L (3.4-5.0); Sodium 128 mmol/L (137-145)
[2020-08-25 19:40] LABS: Vancomycin Trough 29.3 ug/mL (10.0-20.0)
[2020-08-25 19:54] LABS: Glucose Point of Care 214 (65-105)
[2020-08-25] MEDS: INSULIN DETEMIR 100 UNITS/ML 45 UNITS SUB-Q (22:12)
[2020-08-25 23:53] LABS: Glucose Point of Care 148 (65-105)
[2020-08-25 23:53] LABS: Glucose Point of Care 173 (65-105)
[2020-08-26] VITALS (48 sets, daily range): BP systolic 108–135; BP diastolic 62–75; PULSE 77–118; RESP 30–33; TEMP 35.7–36.9; O2SAT 73–95
[2020-08-26] MEDS: INSULIN HUMAN REGULAR (*BKC) 100 UNITS in SODIUM CHLORIDE 0.9% IV 99 ML 7.9 UNITS IV CONT (00:33)
[2020-08-26] MEDS: EPOPROSTENOL SODIUM 0.5 MG VIAL 1 MG INHALATION ×4 (02:15→20:46)
[2020-08-26 03:54] LABS: Glucose Point of Care 141 (65-105)
[2020-08-26] MEDS: PROPOFOL IV EMULSION 100 ML 27.24 MG IV CONT ×6 (04:04→20:40)
[2020-08-26 04:37] LABS: Glucose Point of Care 142 (65-105)
[2020-08-26 04:41] LABS: PCO2 ABG 70.9 mmHg (35.0-45.0); pH ABG 7.253 (7.350-7.450)
[2020-08-26 04:42] LABS: Base Excess ABG 2.3 mEq/l (+/-2.0); HCO3 ABG 30.6 mEq/l (22.0-26.0); Oxygen Saturation ABG 73.8 % (95.0-100.0); PO2 ABG 46.3 mmHg (80.0-100.0); Total Hemoglobin 9.8 g/dL (12.0-18.0)
[2020-08-26 04:42] LABS: Hematocrit 26.7 % (37.0-47.0); Hemoglobin 8.5 g/dL (12.0-15.0); Mean Corpuscular HGB Conc 31.8 g/dl (32-36); Mean Corpuscular Volume 94.3 fl (80-100); Platelet Count Result 213 k/mm3 (150-375); Red Blood Count 2.83 M/mm3 (4.2-5.4); Red Cell Distribution Width 13.7 % (11.5-14.5); White Blood Count 17.5 K/mm3 (4.5-10.0)
[2020-08-26 04:43] LABS: Alveolar/Arterial O2 Gradient 595.8 mmHg; Oxygen Content ABG 10.5 %vol (16.0-22.0)
[2020-08-26 04:44] LABS: Carboxyhemoglobin 0.5 % THb (0-2.0); Methemoglobin ABG 0.1 %THb (0-1.5); Oxyhemoglobin 75.8 % THb (90.0-100.0)
[2020-08-26 04:45] LABS: Fractional Inspired Oxygen 100 %; PO2 FiO2 Ratio Arterial Blood 0.46 %; Reduced Hemoglobin 23.6 %THb (0-5.0); Site Drawn LEFT RADIAL
[2020-08-26 04:46] LABS: Arterial Blood Gas Ventilator rate 33 /MIN; Device VENTILATOR; Modified Allen's Test Unable to perform
[2020-08-26 04:47] LABS: Arterial Blood Gas PEEP 20 cmH2O; Arterial Blood Gas Tidal Volume 320 ml; Arterial Blood Gas Vent Mode CMV
[2020-08-26 05:03] LABS: Anion Gap 11 mmol/L (8-16); Blood Urea Nitrogen 84 mg/dL (7-17); Calcium 8.3 mg/dL (8.4-10.2); Carbon Dioxide 34 mmol/L (22-30); Chloride 85 mmol/L (98-107); Estimated CRCL calculation 20 ml/min; Estimated Glomerular Filt Rate 16; Glucose 144 mg/dL (65-105); Lactate Dehydrogenase 754 U/L (313-618); Magnesium 3.1 mg/dL (1.6-2.3); Phosphorus 10.8 mg/dL (2.5-4.5); Potassium 6.1 mmol/L (3.4-5.0); Sodium 130 mmol/L (137-145)
[2020-08-26 05:13] LABS: CRP 26.5 mg/dL (<1.0)
[2020-08-26 05:22] LABS: D Dimer 4.55 ug/mL (<0.48)
[2020-08-26] MEDS: CENTRAL LINE FLUSH 10 ML IV PUSH ×3 (06:12→20:42)
[2020-08-26] MEDS: DEXTROSE 50% 25 GM/50 ML SYRINGE IV PUSH (06:25)
[2020-08-26] MEDS: SODIUM BICARBONATE 8.4% 50 MEQ/50 ML VIAL IV PUSH (06:25)
[2020-08-26 06:42] LABS: Glucose Point of Care 119 (65-105)
[2020-08-26] MEDS: INSULIN DETEMIR 100 UNITS/ML 45 UNITS SUB-Q ×2 (07:50→20:42)
[2020-08-26] MEDS: ENOXAPARIN 40 MG/0.4 ML SYRINGE SUB-Q ×2 (07:51→20:41)
[2020-08-26] MEDS: CALCIUM GLUC 1,000 MG/NS 50 ML 1,000 MG/50 ML BAG 100 MG IVPB (07:51)
[2020-08-26 08:17] LABS: Glucose Point of Care 149 (65-105)
[2020-08-26] MEDS: ALTEPLASE 2 MG VIAL (CATHFLO) IV PUSH (08:44)
[2020-08-26 08:57] LABS: Glucose Point of Care 135 (65-105)
[2020-08-26 10:14] LABS: Glucose Point of Care 113 (65-105)
[2020-08-26] MEDS: FENTANYL 2,500MCG/NS250ML(*CRX 2,500 MCG/250 ML BAG 15 MCG IV CONT (11:22)
[2020-08-26 11:31] LABS: Glucose Point of Care 100 (65-105)
[2020-08-26 12:18] LABS: Glucose Point of Care 100 (65-105)
[2020-08-26 13:20] LABS: Glucose Point of Care 89 (65-105)
--- NOTE | 2020-08-26 13:23 | PCDIET ---
Nutrition Follow-Up Complete: Nutrition Diagnosis: Inadequate oral intake related to pneumonia as evidenced by reported 20 pound weight loss and poor po intake. Nutrition Goal: Patient to meet estimated nutritional needs. Goal not met. Tube feedings on hold due to increased O2 requirements. If able to resume, recommend change to Nepro formula. Last recorded weight is 142 kg which is up from last review. Bowel Motility: No documented BM. Labs Reviewed: Hgb (8.5), Hct (26.7), Glu (144), BUN (84), Cr (3.5), K (6.1), PO4 (10.8), Ca (8.3) Meds Noted: Albuterol, Cefepime, Aspart, Atrovent, Versed, Vancomycin, Fentanyl, Hydralazine, Levemir, Levophed, Propofol (rate of 27.24mL/hr provides 719kcal per day) Additional Notes: No documented skin breakdown. Will continue to monitor with same goal. If patient remains too unstable to feed enterally, may need to consider parenteral nutrition. Nutrition Monitoring and Evaluation: Will monitor every Saturday/Saturday.
--- NOTE | 2020-08-26 14:03 | WPDINTPN ---
Progress Note: A&P Assessment and Plan (1) Acute respiratory failure with hypoxia: Code(s): J96.01 - Acute respiratory failure with hypoxia Status: Acute Assessment and Plan: Acute Respiratory failure secondary to COVID-19 pneumonia - on 08/16/2020: patient failed BiPAP, INTUBATED for impending respiratory failure secondary to significant tachypnea and desaturation. - was started on Flolan 08/16/2020. It was weaned off but has to be restarted back on for resistant hypoxia after she developed right-sided pneumothorax. no significant benefit has been obtained from Flolan but will continue as stopping may further decompensate - Completed course of Remdesivir and dexamethasone - 08/13 received 1 unit of convalescent plasma - Continue bronchodilators - sedated with fentanyl and Versed infusion. neuromuscular blockade with Nimbex - patient is on CMV mode of ventilation, tidal volume 320ml, Rate of 36, peep of 20 , FiO2 of 100%. - permissive hypercapnia despite all these measures patient has remained hypoxic with saturation in 80s . She has been refused by ECMO centers earlier due to very high BMI and was deemed not to be candidate. Patient was not prone ventilation because of chest tube which could get compressed. at this point patient is so unstable that minimal movement brings the O2 sats down into the 60s. echocardiogram 08/20/2020 showed hyperdynamic LV function with EF of 70%, normal LV size and wall thickness. Normal diastolic dysfunction. Valves are not well visualized. Unable to assess RVSP (2) Pneumonia due to 2019 novel coronavirus: Code(s): U07.1 - COVID-19; J12.89 - Other viral pneumonia Status: Acute Assessment and Plan: see above (3) UMER (acute kidney injury): Code(s): N17.9 - Acute kidney failure, unspecified Status: Acute Assessment and Plan: acute kidney injury most likely related to hypoxia intravascular volume depletion - Worsening function likely related to hypoxia, patient also edematous - may not be a candidate for dialysis as she cannot lay flat for dialysis catheter and given a peep of 20 they would be increased risk of placing IJ or subclavian dialysis catheter - continue monitor urine output, renal function and electrolytes (4) Hyperkalemia: Code(s): E87.5 - Hyperkalemia Status: Acute Assessment and Plan: likely secondary to worsening of acidosis and along with the renal function treated with sodium bicarb, insulin/D50, albuterol nebulizer, Kayexalate repeat level ordered (5) Hypertension: Qualifiers: Hypertension type: essential hypertension Qualified Code(s): I10 - Essential (primary) hypertension Code(s): I10 - Essential (primary) hypertension Status: Acute Assessment and Plan: hydralazine p.r.n. (6) Diabetes: Qualifiers: Diabetes mellitus type: type 2 Diabetes mellitus shelter insulin use: without shelter use Diabetes mellitus complication status: without complication Qualified Code(s): E11.9 - Type 2 diabetes mellitus without complications Code(s): E11.9 - Type 2 diabetes mellitus without complications Status: Acute Assessment and Plan: continue Accu-Cheks and sliding scale insulin - hyperglycemic likely secondary to dexamethasone - continue Levemir - patient also on insulin infusion (7) DVT prophylaxis: Code(s): Z29.9 - Encounter for prophylactic measures, unspecified Status: Acute Assessment and Plan: continue Lovenox 40 mg subcu q.12 hours (8) Dietary counseling and surveillance: Code(s): Z71.3 - Dietary counseling and surveillance Status: Acute Assessment and Plan: tube feeds currently on hold due to severe hypoxemia hypoxia (9) Pneumothorax on right: Code(s): J93.9 - Pneumothorax, unspecified Status: Acute Assessment and Plan: pneumothora
[2020-08-26 14:30] LABS: Glucose Point of Care 100 (65-105)
--- NOTE | 2020-08-26 16:37 | PM.IMPN ---
Progress Note: A&P Assessment and Plan (1) Pneumothorax on right: Code(s): J93.9 - Pneumothorax, unspecified Status: Acute Assessment and Plan: Chest tube in place hooked to water seal. (2) Acute respiratory failure with hypoxia: Code(s): J96.01 - Acute respiratory failure with hypoxia Status: Acute Assessment and Plan: On ventilator support. Poor prognosis. (3) Pneumonia due to 2019 novel coronavirus: Code(s): U07.1 - COVID-19; J12.89 - Other viral pneumonia Status: Acute Assessment and Plan: S/p Remdesivir Cefepime + Vanc on (4) UMER (acute kidney injury): Code(s): N17.9 - Acute kidney failure, unspecified Status: Acute Assessment and Plan: Likely secondary to hypoxia. Subjective Date/time seen: 08/26/20 16:37 On vent support. Review of Systems Review of Systems: Narrative: Unable to obtain as patient is on ventilator support. Exam Narrative: Exam Narrative: On vent support. Const: General: other (Sedated) Nutritional Appearance: overweight HENMT: Head: normocephalic Face and sinus: normal facial exam Mouth: Yes other (ETT in place.) Eyes: General: appearance normal, both eyes and all related structures Neck: Neck: no lymphadenopathy and no JVD Resp: Auscultation: diminished lung sounds Cardio: Rate: regular rate Rhythm: regular rhythm GI: Inspection: normal to inspection GI Palp: Yes Soft to palpation and Yes No hepatosplenomegaly present Skin: General skin exam: normal color Rashes: no rashes Wounds: no wounds Neuro: General: other (Under sedation.) Extrem: General: normal to inspection Objective Data Vital Signs Vital Signs: Vital Signs - 24 hr 08/25/20 17:08 08/25/20 17:31 08/25/20 17:40 Temperature Pulse Rate 103 H 103 H 103 H Respiratory Rate 33 H 33 H Blood Pressure Pulse Oximetry 76 L 08/25/20 18:00 08/25/20 18:23 08/25/20 18:24 Temperature 98.6 F Pulse Rate 98 98 98 Respiratory Rate 33 H 33 H 33 H Blood Pressure 115/66 Pulse Oximetry 78 L 08/25/20 20:00 08/25/20 20:12 08/25/20 20:27 Temperature 97.7 F Pulse Rate 99 99 95 Respiratory Rate 33 H 33 H Blood Pressure 154/73 H 153/74 H Pulse Oximetry 100 79 L 08/25/20 20:28 08/25/20 21:21 08/25/20 21:31 Temperature Pulse Rate 95 122 H 122 H Respiratory Rate 33 H 33 H 33 H Blood Pressure Pulse Oximetry 79 L 08/25/20 22:00 08/25/20 22:13 08/25/20 23:33 Temperature 97.5 F L Pulse Rate 128 H 124 H 109 H Respiratory Rate 33 H Blood Pressure 125/58 L 129/80 Pulse Oximetry 72 L 68 L 08/26/20 00:00 08/26/20 00:42 08/26/20 01:12 Temperature 97.6 F Pulse Rate 109 H 99 118 H Respiratory Rate 33 H 33 H 33 H Blood Pressure 109/62 109/62 Pulse Oximetry 73 L 08/26/20 02:00 08/26/20 02:15 08/26/20 03:55 Temperature 97.7 F Pulse Rate 109 H 103 H 81 Respiratory Rate 33 H 33 H Blood Pressure 108/67 Pulse Oximetry 75 L 76 L 80 L 08/26/20 04:00 08/26/20 04:04 08/26/20 04:19 Temperature 97.4 F L Pulse Rate 80 118 H 81 Respiratory Rate 33 H 33 H Blood Pressure 109/69 108/67 Pulse Oximetry 79 L 08/26/20 04:20 08/26/20 04:30 08/26/20 05:45 Temperature Pulse Rate 78 78 77 Respiratory Rate 33 H 33 H Blood Pressure Pulse Oximetry 83 L 08/26/20 05:51 08/26/20 05:55 08/26/20 08:00 Temperature 96.8 F L 96.2 F L Pulse Rate 77 78 79 Respiratory Rate 33 H 33 H 30 H Blood Pressure 115/65 109/74 Pulse Oximetry 82 L 79 L 08/26/20 08:11 08/26/20 08:25 08/26/20 08:30 Temperature Pulse Rate 81 80 80 Respiratory Rate 33 H 33 H 33 H Blood Pressure 126/64 Pulse Oximetry 88 L 08/26/20 08:44 08/26/20 08:50 08/26/20 10:00 Temperature 97.0 F L Pulse Rate 80 80 88 Respiratory Rate 33 H 33 H 33 H Blood Pressure 126/64 115/66 Pulse Oximetry 83 L 08/26/20 10:30 08/26/20 11:05 08/26/20 11:22 Temperature Pulse Rate 94 89 89 Respirat
[2020-08-26 18:14] LABS: Glucose Point of Care 115 (65-105)
[2020-08-26 23:52] LABS: Glucose Point of Care 99 (65-105)
[2020-08-27] VITALS (38 sets, daily range): BP systolic 119–130; BP diastolic 62–74; PULSE 0–95; RESP 0–33; TEMP 36–36.6; O2SAT 85–99
[2020-08-27] MEDS: PROPOFOL IV EMULSION 100 ML 27.24 MG IV CONT ×4 (00:36→11:30)
[2020-08-27] MEDS: EPOPROSTENOL SODIUM 0.5 MG VIAL 1 MG INHALATION ×2 (02:43→09:21)
[2020-08-27] MEDS: FENTANYL 2,500MCG/NS250ML(*CRX 2,500 MCG/250 ML BAG 15 MCG IV CONT (03:35)
[2020-08-27] MEDS: CENTRAL LINE FLUSH 10 ML IV PUSH (05:13)
[2020-08-27 05:19] LABS: Alveolar/Arterial O2 Gradient 592.5 mmHg; Base Excess ABG -1.5 mEq/l (+/-2.0); Carboxyhemoglobin 0.3 % THb (0-2.0); Fractional Inspired Oxygen 100 %; HCO3 ABG 26.2 mEq/l (22.0-26.0); Methemoglobin ABG 0.2 %THb (0-1.5); Oxygen Content ABG 11.1 %vol (16.0-22.0); Oxyhemoglobin 85.6 % THb (90.0-100.0); PO2 ABG 59.5 mmHg (80.0-100.0); Reduced Hemoglobin 13.9 %THb (0-5.0); Total Hemoglobin 9.2 g/dL (12.0-18.0)
[2020-08-27 05:22] LABS: pH ABG 7.251 (7.350-7.450)
[2020-08-27 05:25] LABS: Device VENTILATOR; Modified Allen's Test Unable to perform; Site Drawn LEFT RADIAL
[2020-08-27 05:26] LABS: Arterial Blood Gas PEEP 20 cmH2O; Arterial Blood Gas Tidal Volume 320 ml; Arterial Blood Gas Vent Mode CMV; Arterial Blood Gas Ventilator rate 33 /MIN
[2020-08-27 06:10] LABS: Hematocrit 24.6 % (37.0-47.0); Hemoglobin 7.9 g/dL (12.0-15.0); Mean Corpuscular HGB Conc 32.1 g/dl (32-36); Mean Corpuscular Hemoglobin 29.9 pg (26-34); Mean Corpuscular Volume 93.2 fl (80-100); Mean Platelet Volume 9.9 fl (7.4-10.4); Platelet Count Result 225 k/mm3 (150-375); Red Blood Count 2.64 M/mm3 (4.2-5.4); Red Cell Distribution Width 14.3 % (11.5-14.5); White Blood Count 18.1 K/mm3 (4.5-10.0)
[2020-08-27 06:38] LABS: Potassium 6.5 mmol/L (3.4-5.0)
[2020-08-27 06:42] LABS: Anion Gap 13 mmol/L (8-16); Blood Urea Nitrogen 98 mg/dL (7-17); Calcium 7.9 mg/dL (8.4-10.2); Carbon Dioxide 30 mmol/L (22-30); Chloride 82 mmol/L (98-107); Estimated CRCL calculation 15 ml/min; Estimated Glomerular Filt Rate 11; Glucose 85 mg/dL (65-105); Sodium 125 mmol/L (137-145)
[2020-08-27 07:04] LABS: Vancomycin Random 32.7 ug/mL (10-20)
[2020-08-27] MEDS: SODIUM BICARBONATE 8.4% 50 MEQ/50 ML VIAL IV PUSH (11:31)
[2020-08-27] MEDS: INSULIN DETEMIR 100 UNITS/ML 45 UNITS SUB-Q (11:33)
[2020-08-27] MEDS: ENOXAPARIN 40 MG/0.4 ML SYRINGE SUB-Q (11:33)
[2020-08-27] MEDS: INSULIN HUMAN REGULAR (*BKC) 100 UNITS/ML 10 UNITS IV PUSH (11:33)
[2020-08-27] MEDS: DEXTROSE 50% 25 GM/50 ML SYRINGE IV PUSH (11:33)
[2020-08-27 13:10] LABS: Potassium 6.2 mmol/L (3.4-5.0)
[2020-08-27] MEDS: ALBUTEROL SULFATE NEB 2.5 MG/0.5 ML INH 10 MG INHALATION (13:20)
[2020-08-27 13:30] LABS: Anion Gap 14 mmol/L (8-16); Blood Urea Nitrogen 101 mg/dL (7-17); Calcium 7.6 mg/dL (8.4-10.2); Carbon Dioxide 31 mmol/L (22-30); Chloride 81 mmol/L (98-107); Estimated CRCL calculation 17 ml/min; Estimated Glomerular Filt Rate 12; Glucose 112 mg/dL (65-105); Sodium 126 mmol/L (137-145)
--- NOTE | 2020-08-27 13:38 | WPDINTPN ---
Progress Note: A&P Assessment and Plan (1) Acute respiratory failure with hypoxia: Code(s): J96.01 - Acute respiratory failure with hypoxia Status: Acute Assessment and Plan: Acute Respiratory failure secondary to COVID-19 pneumonia - on 08/16/2020: patient failed BiPAP, INTUBATED for impending respiratory failure secondary to significant tachypnea and desaturation. - was started on Flolan 08/16/2020. It was weaned off but has to be restarted back on for resistant hypoxia after she developed right-sided pneumothorax. no significant benefit has been obtained from Flolan but will continue as stopping may further decompensate - Completed course of Remdesivir and dexamethasone - 08/13 received 1 unit of convalescent plasma - Continue bronchodilators - sedated with fentanyl and Versed infusion. neuromuscular blockade with Nimbex - patient is on CMV mode of ventilation, tidal volume 320ml, Rate of 36, peep of 20 , FiO2 of 100%. - permissive hypercapnia - despite all these measures patient has remained hypoxic with saturation in 80s . She has been refused by ECMO centers earlier due to very high BMI and was deemed not to be candidate. Patient was not prone ventilation because of chest tube which could get compressed. at this point patient is so unstable that minimal movement brings the O2 sats down into the 60s. echocardiogram 08/20/2020 showed hyperdynamic LV function with EF of 70%, normal LV size and wall thickness. Normal diastolic dysfunction. Valves are not well visualized. Unable to assess RVSP Discussed with Jessica PRESTON today and updated her with patient's condition and plan of care. I did tell her that I will be making the patient DNR to which she agreed as patient is very critical, condition is guarded. I also discussed with the that patient is suffering a lot and the need to make a decision regarding comfort measures, she stated that her mother and herself for be here later this afternoon to make her comfort measures draw care. (2) Pneumonia due to 2019 novel coronavirus: Code(s): U07.1 - COVID-19; J12.89 - Other viral pneumonia Status: Acute Assessment and Plan: see above (3) UMER (acute kidney injury): Code(s): N17.9 - Acute kidney failure, unspecified Status: Acute Assessment and Plan: acute kidney injury most likely related to hypoxia intravascular volume depletion - Worsening function likely related to hypoxia, patient also edematous - may not be a candidate for dialysis as she cannot lay flat for dialysis catheter and given a peep of 20 they would be increased risk of placing IJ or subclavian dialysis catheter - continue monitor urine output, renal function and electrolytes (4) Hyperkalemia: Code(s): E87.5 - Hyperkalemia Status: Acute Assessment and Plan: likely secondary to worsening of acidosis and along with the renal function treated with sodium bicarb, insulin/D50, albuterol nebulizer, Kayexalate repeat level ordered (5) Hypertension: Qualifiers: Hypertension type: essential hypertension Qualified Code(s): I10 - Essential (primary) hypertension Code(s): I10 - Essential (primary) hypertension Status: Acute Assessment and Plan: hydralazine p.r.n. (6) Diabetes: Qualifiers: Diabetes mellitus type: type 2 Diabetes mellitus residential insulin use: without termite control service representative use Diabetes mellitus complication status: without complication Qualified Code(s): E11.9 - Type 2 diabetes mellitus without complications Code(s): E11.9 - Type 2 diabetes mellitus without complications Status: Acute Assessment and Plan: continue Accu-Cheks and sliding scale insulin - hyperglycemic likely secondary to dexamethasone - continue Levemir - patient also on insulin infusion (7) DVT prophylaxis: Code(s): Z29.9 - Encounter for prophylactic measures, unspecified
[2020-08-27] MEDS: LORazepam INJ (*CRX) 2 MG/ML VIAL IV PUSH (15:43)
[2020-08-27] MEDS: MORPHINE SULFATE (*CRX) 4 MG/ML INJ 5 MG IV PUSH (15:43)
--- NOTE | 2020-08-27 16:30 | PM.DDS ---
Discharge Sum: Prov Provider Primary care physician: Deepak Yousif, Admitting provider: Ady Raymond MD Consults: 08/13/20 11:36 Consult to Physician Routine Comment: Consulting Provider: Kellen Davis call or contact centre coach/MD group to consult: Belt Line Feeder Reason for consultation: respiratory failure Has provider been notified: Yes Discharge Sum: Diag Contributing Factors (1) Pneumothorax on right: (2) UMER (acute kidney injury): (3) Acute respiratory failure with hypoxia: (4) Pneumonia due to 2019 novel coronavirus: (5) ARDS (adult respiratory distress syndrome): (6) Ventilator dependent: Discharge Sum: Summary Date and Time Date of admission: 08/12/20 05:56 Date of : 08/27/20 Time of : 16:24 Summary Details: Patient was withdrawn from life support as hopes for survival were non existent and after days of communicating and updating family about patient's status. Additional Data Confirmation of as documented by pronouncing clinician: no pulse, no respirations and no heart sounds Attending/PCP notified?: Yes Attending physician: Ady Raymond MD Was code activated?: No Autopsy requested?: No worker's compensation claims examiner notified?: No Organ bank notified?: No Advance directives: Yes Hospice patient?: No
== END 2020-08-27 15:47 | disposition expired | DRG 207 ==
LOC: ANHED 06:10 → ANH3MEDSUR 09:55 → ANHICU 08-13 11:58 → ANH3MEDSUR 08-29 13:46
PROVIDERS: Hospitalist; Internal Medicine; Internal Medicine Critical Care Medicine; Student in an Organized Health Care Education/Training Program; Admitting Provider Family Medicine; Emergency Provider Emergency Medicine; PCP Family Medicine; Visit Provider Internal Medicine
DX: U07.1 COVID-19 (principal); J12.89 Other viral pneumonia; J80 Acute respiratory distress syndrome; Z68.43 Body mass index [BMI] 50.0-59.9, adult; N17.9 Acute kidney failure, unspecified; J93.9 Pneumothorax, unspecified; E87.2 Acidosis; Z66 Do not resuscitate; Z51.5 Encounter for palliative care; E86.0 Dehydration; I10 Essential (primary) hypertension; Z87.891 Personal history of nicotine dependence; E66.9 Obesity, unspecified; E11.65 Type 2 diabetes mellitus with hyperglycemia; Z71.3 Dietary counseling and surveillance; T70.29XA Other effects of high altitude, initial encounter; Y84.8 Other medical procedures as the cause of abnormal reaction of the patient, or of later complication, without mention of misadventure at the time of the procedure; Y92.230 Patient room in hospital as the place of occurrence of the external cause; E87.6 Hypokalemia; Z79.84 Long term (current) use of oral hypoglycemic drugs
CPT/HCPCS: 31500; 36415; 36430; 36569; 36600; 71045; 71275; 80048; 80053; 80202; 82375; 82565; 82728; 82805; 83036; 83050; 83605; 83615; 83735; 83880; 84100; 84145; 84484; 85025; 85027; 85380; 85610; 85730; 86140; 86900; 86901; 87040; 87077; 87186; 93005; 94002; 94003; 94640; 99285; A9270; C1729; C1751; C8929; J0131; J0330; J0360; J0610; J0692; J1100; J1650; J1815; J1940; J2060; J2250; J2270; J2704; J2997; J3010; J3370; J7040; J7060; J7120; P9059; Q9957; Q9967